=== PATIENT | female | born 1950 | race Caucasian/White ===

== ENCOUNTER 2018-01-02 16:36 | Inpatient (IN) | payer MEDICARE, OTHER ==
[~2018-01-02] VITALS: Ht 165.1 cm; Wt 57.3 kg
[~2018-01-02 16:36] MED LIST: AMLO2.5T2 PO; COU5T PO; DOCU100C41 PO; DULO-31 PO; GABA-530 PO; LEVO25TA2 PO; LOSA25TA96 PO; METF500T PO; METH-603 PO
[2018-01-02] MEDS ORDERED: ipratropium/albuterol 3ml nebule NEB ONE (16:50)
[2018-01-02 17:34] LABS: BASOPHILS % (AUTO) 0.4 % (0-1); EOSINOPHILS % (AUTO) 0.1 % (0-6); HEMATOCRIT 41.6 % (35.0-45.0); HEMOGLOBIN 13.6 g/dl (12.0-16.0); LYMPHOCYTES # (AUTO) 1.5 X10'3 (1.1-4.8); MEAN CORPUSCULAR HEMOGLOBIN 27.1 PG (27.0-31.0); MEAN CORPUSCULAR HGB CONC 32.8 % (33.0-36.5); MEAN CORPUSCULAR VOLUME 82.8 FL (78-98); MEAN PLATELET VOLUME 8.3 FL (7.4-10.4); MONOCYTES # (AUTO) 0.6 X10'3 (0-0.9); MONOCYTES % (AUTO) 6.1 % (2-12); NEUTROPHILS # (AUTO) 7.2 X10'3 (1.8-7.7); NEUTROPHILS % (AUTO) 77.4 % (42-75); PLATELET COUNT 269 X10'3 (140-440); RED BLOOD COUNT 5.03 X10'6 (4.20-5.60); RED CELL DISTRIBUTION WIDTH 18.4 % (11.5-14.5); WHITE BLOOD COUNT 9.3 X10'3 (4.5-11.0)
[2018-01-02 17:45] LABS: INR 1.5 INR; PARTIAL THROMBOPLASTIN TIME 38 SECONDS (22-32); PROTHROMBIN TIME 15.2 SECONDS (9.0-12.0)
[2018-01-02 18:00] LABS: ALANINE AMINOTRANSFERASE 38 U/L (12-78); ALBUMIN 2.6 G/DL (3.4-5.0); ALBUMIN/GLOBULIN RATIO 0.6 (1.1-1.5); ALKALINE PHOSPHATASE 112 IU/L (46-116); ANION GAP 12 (8-16); ASPARTATE AMINO TRANSFERASE 24 U/L (10-37); BILIRUBIN,TOTAL 1.8 MG/DL (0.1-1.0); BLOOD UREA NITROGEN 12 MG/DL (7-18); BUN/CREATININE RATIO 13.8 (6.6-38.0); CALCIUM 8.5 MG/DL (8.5-10.1); CHLORIDE 103 MMOL/L (99-107); CREATININE 0.87 MG/DL (0.40-0.90); GLUCOSE 227 MG/DL (70-104); MAGNESIUM 1.2 MG/DL (1.5-2.4); POTASSIUM 3.1 MMOL/L (3.5-5.1); SODIUM 142 MMOL/L (135-145); TOTAL CARBON DIOXIDE 27.3 MMOL/L (24-32); TOTAL PROTEIN 7.2 G/DL (6.4-8.2); eGFR 65 ML/MIN
[2018-01-02] MEDS ORDERED: insulin regular, human 10 units/0.1 ml syringe IV ONE (18:10)
[2018-01-02] MEDS ORDERED: aspirin 81mg tab.chew PO ONE (18:10)
[2018-01-02] MEDS ORDERED: vancomycin/NS 1 GM ADD-VANTAGE 250 ML IV ONE (18:20)
[2018-01-02] MEDS ORDERED: mag hydrox/Alum hydrox/simeth 30ml oral suspension PO PRN (19:30)
[2018-01-02] MEDS ORDERED: ondansetron/PF 4mg/2ml inj IV PRN (19:30)
[2018-01-02] MEDS ORDERED: acetaminophen 325mg tablet PO PRN (19:30)
[2018-01-02] MEDS ORDERED: magnesium hydroxide 30ml (MOM) UD suspension PO PRN (19:30)
[2018-01-02] MEDS ORDERED: dextrose 50%-water 50ml dispensing syringe IV PRN ×2 (19:35)
[2018-01-02] MEDS ORDERED: dextrose ORAL solution 15 GM/59 ML bottle PO PRN ×2 (19:35)
[2018-01-02] MEDS ORDERED: glucagon, human recombinant 1mg kit SUBCUT PRN (19:35)
[2018-01-02] MEDS ORDERED: MESSAGE TO PHARMACY PO ONE (19:35)
[2018-01-02] MEDS: duloxetine 30mg CAPSULE.DR PO SCH (20:45)
[2018-01-02] MEDS: methadone 10mg tablet PO SCH (20:48)
[2018-01-02] MEDS: docusate sod 100mg capsule PO SCH (21:00)
[2018-01-02] MEDS: gabapentin 100mg capsule PO SCH (21:10)
[2018-01-02] MEDS: warfarin 5mg tablet PO SCH (21:58)
[2018-01-03 05:47] LABS: BASOPHILS % (AUTO) 0.3 % (0-1); EOSINOPHILS # (AUTO) 0.2 X10'3 (0-0.9); EOSINOPHILS % (AUTO) 1.4 % (0-6); HEMATOCRIT 40.6 % (35.0-45.0); HEMOGLOBIN 13.4 g/dl (12.0-16.0); LYMPHOCYTES # (AUTO) 1.3 X10'3 (1.1-4.8); LYMPHOCYTES % (AUTO) 10.5 % (21-51); MEAN CORPUSCULAR HGB CONC 33.1 % (33.0-36.5); MEAN CORPUSCULAR VOLUME 81.6 FL (78-98); MEAN PLATELET VOLUME 8.3 FL (7.4-10.4); MONOCYTES # (AUTO) 0.6 X10'3 (0-0.9); MONOCYTES % (AUTO) 5.1 % (2-12); NEUTROPHILS # (AUTO) 10.3 X10'3 (1.8-7.7); NEUTROPHILS % (AUTO) 82.7 % (42-75); PLATELET COUNT 255 X10'3 (140-440); RED BLOOD COUNT 4.97 X10'6 (4.20-5.60); RED CELL DISTRIBUTION WIDTH 18.9 % (11.5-14.5); WHITE BLOOD COUNT 12.4 X10'3 (4.5-11.0)
[2018-01-03 06:06] LABS: ALANINE AMINOTRANSFERASE 29 U/L (12-78); ALBUMIN 2.6 G/DL (3.4-5.0); ALBUMIN/GLOBULIN RATIO 0.6 (1.1-1.5); ALKALINE PHOSPHATASE 138 IU/L (46-116); ANION GAP 15 (8-16); ASPARTATE AMINO TRANSFERASE 25 U/L (10-37); BILIRUBIN,TOTAL 1.7 MG/DL (0.1-1.0); BLOOD UREA NITROGEN 17 MG/DL (7-18); BUN/CREATININE RATIO 16.5 (6.6-38.0); CALCIUM 8.8 MG/DL (8.5-10.1); CHLORIDE 102 MMOL/L (99-107); CREATININE 1.03 MG/DL (0.40-0.90); GLUCOSE 282 MG/DL (70-104); POTASSIUM 3.3 MMOL/L (3.5-5.1); SODIUM 141 MMOL/L (135-145); TOTAL PROTEIN 7.2 G/DL (6.4-8.2); eGFR 54 ML/MIN
[2018-01-03 06:10] LABS: INR 1.7 INR; PROTHROMBIN TIME 17.3 SECONDS (9.0-12.0)
[2018-01-03] MEDS ORDERED: potassium Cl 20 mEq SR tablet PO PRN (07:00)
[2018-01-03] MEDS ORDERED: potassium Cl 40MEQ/NS 500ml 500 ML IV PRN ×2 (07:00)
[2018-01-03] MEDS: levoTHYROXINE 25mcg tablet PO SCH (07:26)
[2018-01-03] MEDS: potassium Cl 20 mEq SR tablet PO PRN ×2 (07:27→13:00)
[2018-01-03 07:45] VITALS: BP 116/77
[2018-01-03] MEDS: K and/or MAG REPLACEMENT MC SCH (08:00)
[2018-01-03] MEDS: gabapentin 100mg capsule PO SCH ×3 (08:00→21:13)
[2018-01-03] MEDS: methadone 10mg tablet PO SCH ×2 (09:50→21:13)
[2018-01-03] MEDS: duloxetine 30mg CAPSULE.DR PO SCH ×2 (09:50→21:13)
[2018-01-03] MEDS: amLODIPine 2.5mg tablet PO SCH (09:51)
[2018-01-03] MEDS: losartan 25mg tablet PO SCH (09:51)
[2018-01-03] MEDS: insulin Lispro (HumaLOG) vial - multi-dose SQ SCH ×2 (10:24→13:09)
[2018-01-03 11:00] VITALS: BP 123/91
[2018-01-03 15:00] VITALS: BP 100/77
[2018-01-03] MEDS ORDERED: furosemide 40mg/4ml inj IV ONE (17:40)
[2018-01-03] MEDS: furosemide 20 MG/2 ML vial IV SCH ×2 (17:42→21:12)
[2018-01-03 18:36] LABS: ABG BASE EXCESS -2.3 mmol/L (-2.0-3.0); ABG HCO3 20.2 mmol/L (22.0-26.0); ABG OXYGEN SATURATION 82.4 % (95-98); ABG PCO2 (T) 28.4 mmHg (32.0-45.0); ABG PO2 (T) 46.1 mmHg (83-108); ALLEN'S TEST Positive; FCOHb 0.8 % (0.5-1.5); FLOW 3 L/min; FMetHb 0.2 % (0.3-1.12); FO2Hb 81.6 % (94-100); PATIENT TEMPERATURE 36.8; TOTAL HEMOGLOBIN 13.4 G/dl (12.0-16.0)
[2018-01-03 19:00] VITALS: BP 104/78
[2018-01-03] MEDS: metoprolol tartrate 12.5mg (1/2 tablet) PO SCH (21:13)
[2018-01-03] MEDS: docusate sod 100mg capsule PO SCH (21:13)
[2018-01-03] MEDS: warfarin 5mg tablet PO SCH (21:13)
[2018-01-03 23:00] VITALS: BP 89/60
[2018-01-04] VITALS (7 sets, daily range): BP systolic 90–138; BP diastolic 55–69
[2018-01-04 00:40] LABS: CLARITY,URINE Cloudy (Clear); COLOR,URINE Dark Yellow (Yellow); GLUCOSE, URINE Negative (Neg); KETONES,URINE Negative (Neg); LEUKOCYTE ESTERASE ,URINE Negative (Neg); NITRITES, URINE Negative (Neg); OCCULT BLOOD,URINE Negative (Neg); PROTEIN,URINE 30 mg/dl (Neg)
[2018-01-04 00:41] LABS: UA COLLECTION TYPE FOLEY CATH
[2018-01-04 00:49] LABS: HYALINE CASTS >30 /LPF (NEGATIVE)
[2018-01-04 00:51] LABS: MUCUS STRANDS MANY /LPF (Neg)
[2018-01-04 00:53] LABS: CELLULAR CAST 0-4 /LPF (NEGATIVE); RBC,URINE 0-2 /HPF (0-2)
[2018-01-04 00:54] LABS: SQUAMOUS EPITHELIAL CELL,UR MANY /LPF (FEW)
[2018-01-04 00:56] LABS: AMORPHOUS URATES 1+; BACTERIA,URINE NONE SEEN /HPF (Neg)
[2018-01-04 06:27] LABS: BASOPHILS % (AUTO) 0.2 % (0-1); EOSINOPHILS # (AUTO) 0.2 X10'3 (0-0.9); EOSINOPHILS % (AUTO) 1.3 % (0-6); HEMATOCRIT 37.4 % (35.0-45.0); HEMOGLOBIN 12.3 g/dl (12.0-16.0); LYMPHOCYTES # (AUTO) 1.3 X10'3 (1.1-4.8); LYMPHOCYTES % (AUTO) 7.6 % (21-51); MEAN CORPUSCULAR HEMOGLOBIN 27.4 PG (27.0-31.0); MEAN CORPUSCULAR VOLUME 82.9 FL (78-98); MEAN PLATELET VOLUME 8.4 FL (7.4-10.4); MONOCYTES # (AUTO) 0.8 X10'3 (0-0.9); MONOCYTES % (AUTO) 4.8 % (2-12); NEUTROPHILS # (AUTO) 14.3 X10'3 (1.8-7.7); NEUTROPHILS % (AUTO) 86.1 % (42-75); PLATELET COUNT 197 X10'3 (140-440); RED BLOOD COUNT 4.51 X10'6 (4.20-5.60); RED CELL DISTRIBUTION WIDTH 19.5 % (11.5-14.5); WHITE BLOOD COUNT 16.6 X10'3 (4.5-11.0)
[2018-01-04 06:37] LABS: PROTHROMBIN TIME 20.2 SECONDS (9.0-12.0)
[2018-01-04 06:50] LABS: ALANINE AMINOTRANSFERASE 39 U/L (12-78); ALBUMIN 2.2 G/DL (3.4-5.0); ALBUMIN/GLOBULIN RATIO 0.6 (1.1-1.5); ALKALINE PHOSPHATASE 146 IU/L (46-116); ANION GAP 12 (8-16); ASPARTATE AMINO TRANSFERASE 49 U/L (10-37); BILIRUBIN,TOTAL 2.5 MG/DL (0.1-1.0); BLOOD UREA NITROGEN 31 MG/DL (7-18); BUN/CREATININE RATIO 21.7 (6.6-38.0); CALCIUM 8.1 MG/DL (8.5-10.1); CHLORIDE 105 MMOL/L (99-107); CREATININE 1.43 MG/DL (0.40-0.90); GLUCOSE 109 MG/DL (70-104); SODIUM 144 MMOL/L (135-145); TOTAL CARBON DIOXIDE 26.6 MMOL/L (24-32); TOTAL PROTEIN 6.1 G/DL (6.4-8.2); eGFR 37 ML/MIN
[2018-01-04] MEDS: amLODIPine 2.5mg tablet PO SCH (08:00)
[2018-01-04] MEDS: furosemide 20 MG/2 ML vial IV SCH ×2 (08:00→19:56)
[2018-01-04] MEDS: losartan 25mg tablet PO SCH (08:00)
[2018-01-04] MEDS: K and/or MAG REPLACEMENT MC SCH (08:00)
[2018-01-04] MEDS: duloxetine 30mg CAPSULE.DR PO SCH ×2 (08:00→19:56)
[2018-01-04] MEDS: metoprolol tartrate 12.5mg (1/2 tablet) PO SCH ×2 (08:00→19:56)
[2018-01-04] MEDS: gabapentin 100mg capsule PO SCH ×3 (08:00→21:13)
[2018-01-04] MEDS: levoTHYROXINE 25mcg tablet PO SCH (08:48)
[2018-01-04] MEDS: aspirin 81mg tablet.DR PO SCH (08:48)
[2018-01-04] MEDS: methadone 10mg tablet PO SCH ×2 (08:48→19:56)
[2018-01-04] MEDS: atorvastatin 20mg tablet PO SCH (08:48)
[2018-01-04] MEDS: normal saline 1000ml 1,000 ML IV SCH ×2 (09:53→21:23)
[2018-01-04] MEDS: cefepime 1GM/NS ADD-VANTAGE 100 ML IV SCH ×2 (10:00→19:56)
[2018-01-04] MEDS: insulin Lispro (HumaLOG) vial - multi-dose SQ SCH (13:05)
[2018-01-04] MEDS: lactobacillus rhamnosus 10,000 MMU CELLS/CAPSULE PO SCH (17:33)
[2018-01-04] MEDS: NUT.TX.GLUC.INTOLER,LAC-FR,REG (BOOST GLUCOSE CONTROL) 237 ML PO SCH (18:00)
[2018-01-04] MEDS: docusate sod 100mg capsule PO SCH (21:13)
[2018-01-04] MEDS: warfarin 5mg tablet PO SCH (21:15)
[2018-01-04] MEDS ORDERED: nicotine 7mg patch - 24hr TD SCH (21:50)
[2018-01-04] MEDS: nicotine 21mg patch - 24 hr TD SCH (23:22)
[2018-01-05] VITALS (9 sets, daily range): BP systolic 80–115; BP diastolic 58–97
[2018-01-05 05:16] LABS: BASOPHILS % (AUTO) 0.3 % (0-1); EOSINOPHILS # (AUTO) 0.1 X10'3 (0-0.9); EOSINOPHILS % (AUTO) 0.4 % (0-6); HEMATOCRIT 37.3 % (35.0-45.0); HEMOGLOBIN 12.1 g/dl (12.0-16.0); LYMPHOCYTES # (AUTO) 1.3 X10'3 (1.1-4.8); LYMPHOCYTES % (AUTO) 10.6 % (21-51); MEAN CORPUSCULAR HEMOGLOBIN 27.1 PG (27.0-31.0); MEAN CORPUSCULAR HGB CONC 32.4 % (33.0-36.5); MEAN CORPUSCULAR VOLUME 83.9 FL (78-98); MEAN PLATELET VOLUME 8.5 FL (7.4-10.4); MONOCYTES # (AUTO) 0.6 X10'3 (0-0.9); MONOCYTES % (AUTO) 4.7 % (2-12); NEUTROPHILS # (AUTO) 10.4 X10'3 (1.8-7.7); PLATELET COUNT 204 X10'3 (140-440); RED BLOOD COUNT 4.45 X10'6 (4.20-5.60); RED CELL DISTRIBUTION WIDTH 19.1 % (11.5-14.5); WHITE BLOOD COUNT 12.4 X10'3 (4.5-11.0)
[2018-01-05 05:32] LABS: INR 2.7 INR; PROTHROMBIN TIME 27.3 SECONDS (9.0-12.0)
[2018-01-05 05:56] LABS: ALANINE AMINOTRANSFERASE 44 U/L (12-78); ALBUMIN 2.1 G/DL (3.4-5.0); ALBUMIN/GLOBULIN RATIO 0.5 (1.1-1.5); ALKALINE PHOSPHATASE 176 IU/L (46-116); ANION GAP 12 (8-16); ASPARTATE AMINO TRANSFERASE 49 U/L (10-37); BILIRUBIN,TOTAL 1.7 MG/DL (0.1-1.0); BLOOD UREA NITROGEN 39 MG/DL (7-18); BUN/CREATININE RATIO 30.2 (6.6-38.0); CALCIUM 8.2 MG/DL (8.5-10.1); CHLORIDE 106 MMOL/L (99-107); CREATININE 1.29 MG/DL (0.40-0.90); GLUCOSE 174 MG/DL (70-104); POTASSIUM 3.4 MMOL/L (3.5-5.1); SODIUM 145 MMOL/L (135-145); TOTAL CARBON DIOXIDE 26.8 MMOL/L (24-32); eGFR 41 ML/MIN
[2018-01-05] MEDS: duloxetine 30mg CAPSULE.DR PO SCH ×2 (07:38→20:00)
[2018-01-05] MEDS: losartan 25mg tablet PO SCH (07:38)
[2018-01-05] MEDS: gabapentin 100mg capsule PO SCH ×3 (07:38→21:00)
[2018-01-05] MEDS: metoprolol tartrate 12.5mg (1/2 tablet) PO SCH ×2 (07:38→20:00)
[2018-01-05] MEDS: cefepime 1GM/NS ADD-VANTAGE 100 ML IV SCH ×2 (07:38→21:20)
[2018-01-05] MEDS: atorvastatin 20mg tablet PO SCH (07:38)
[2018-01-05] MEDS: aspirin 81mg tablet.DR PO SCH (07:39)
[2018-01-05] MEDS: lactobacillus rhamnosus 10,000 MMU CELLS/CAPSULE PO SCH ×2 (07:39→17:00)
[2018-01-05] MEDS: methadone 10mg tablet PO SCH ×2 (07:39→20:00)
[2018-01-05] MEDS: furosemide 20 MG/2 ML vial IV SCH ×2 (07:39→21:12)
[2018-01-05] MEDS: levoTHYROXINE 25mcg tablet PO SCH (07:40)
[2018-01-05] MEDS: normal saline 1000ml 1,000 ML IV SCH ×3 (07:50→18:44)
[2018-01-05] MEDS: NUT.TX.GLUC.INTOLER,LAC-FR,REG (BOOST GLUCOSE CONTROL) 237 ML PO SCH ×3 (08:00→18:00)
[2018-01-05] MEDS: K and/or MAG REPLACEMENT MC SCH (08:00)
[2018-01-05] MEDS ORDERED: potassium Cl oral solution 20 MEQ/15 ML PO PRN (09:25)
[2018-01-05] MEDS: insulin Lispro (HumaLOG) vial - multi-dose SQ SCH ×2 (09:40→13:26)
[2018-01-05] MEDS ORDERED: LIDOcaine 1% 30ml vial 5 ML in potassium Cl 40MEQ/NS 500ml 500 ML IV ONE (15:00)
[2018-01-05 16:05] LABS: ABG BASE EXCESS -2.8 mmol/L (-2.0-3.0); ABG HCO3 23.1 mmol/L (22.0-26.0); ABG OXYGEN SATURATION 93.1 % (95-98); ABG PCO2 (T) 44.5 mmHg (32.0-45.0); ABG PH (T) 7.334 (7.350-7.450); ABG PO2 (T) 76.8 mmHg (83-108); FCOHb 0.5 % (0.5-1.5); FLOW 7 L/min; FMetHb 0.2 % (0.3-1.12); FO2Hb 92.4 % (94-100); TOTAL HEMOGLOBIN 12.7 G/dl (12.0-16.0)
[2018-01-05] MEDS ORDERED: normal saline 500ml IV soln 1,000 ML IV ONE (16:55)
[2018-01-05] MEDS ORDERED: naloxone 0.4 mg/ml inj ONE (17:14)
[2018-01-05] MEDS ORDERED: NORepinephrine 8mg/ 250ml NS 250 ML IV ONE (18:32)
[2018-01-05] MEDS: docusate sod 100mg capsule PO SCH (21:00)
[2018-01-05] MEDS: nicotine 21mg patch - 24 hr TD SCH (21:32)
[2018-01-05] MEDS: warfarin 5mg tablet PO SCH (21:33)
[2018-01-06] VITALS (24 sets, daily range): BP systolic 81–125; BP diastolic 47–76
[2018-01-06 04:47] LABS: BASOPHILS % (AUTO) 0.3 % (0-1); EOSINOPHILS % (AUTO) 0.3 % (0-6); HEMATOCRIT 38.2 % (35.0-45.0); HEMOGLOBIN 12.3 g/dl (12.0-16.0); LYMPHOCYTES # (AUTO) 1.3 X10'3 (1.1-4.8); LYMPHOCYTES % (AUTO) 10.1 % (21-51); MEAN CORPUSCULAR HEMOGLOBIN 26.8 PG (27.0-31.0); MEAN CORPUSCULAR HGB CONC 32.1 % (33.0-36.5); MEAN CORPUSCULAR VOLUME 83.6 FL (78-98); MEAN PLATELET VOLUME 8.8 FL (7.4-10.4); MONOCYTES # (AUTO) 0.6 X10'3 (0-0.9); MONOCYTES % (AUTO) 4.8 % (2-12); NEUTROPHILS # (AUTO) 10.8 X10'3 (1.8-7.7); NEUTROPHILS % (AUTO) 84.5 % (42-75); PLATELET COUNT 220 X10'3 (140-440); RED BLOOD COUNT 4.57 X10'6 (4.20-5.60); RED CELL DISTRIBUTION WIDTH 19.6 % (11.5-14.5); WHITE BLOOD COUNT 12.8 X10'3 (4.5-11.0)
[2018-01-06 05:12] LABS: INR 6.4 INR
[2018-01-06 05:20] LABS: ALANINE AMINOTRANSFERASE 111 U/L (12-78); ALBUMIN/GLOBULIN RATIO 0.5 (1.1-1.5); ALKALINE PHOSPHATASE 322 IU/L (46-116); ANION GAP 15 (8-16); ASPARTATE AMINO TRANSFERASE 242 U/L (10-37); BILIRUBIN,TOTAL 2.3 MG/DL (0.1-1.0); BLOOD UREA NITROGEN 43 MG/DL (7-18); BUN/CREATININE RATIO 33.6 (6.6-38.0); CALCIUM 8.2 MG/DL (8.5-10.1); CHLORIDE 110 MMOL/L (99-107); CREATININE 1.28 MG/DL (0.40-0.90); GLUCOSE 98 MG/DL (70-104); POTASSIUM 4.3 MMOL/L (3.5-5.1); SODIUM 147 MMOL/L (135-145); TOTAL CARBON DIOXIDE 22.1 MMOL/L (24-32); eGFR 42 ML/MIN
[2018-01-06] MEDS: normal saline 1000ml 1,000 ML IV SCH ×2 (05:48→16:34)
[2018-01-06 06:58] LABS: ANISOCYTOSIS 2+; BURR CELLS 1+; ELLIPTOCYTES FEW; MICROCYTOSIS 1+; PLATELET ESTIMATE NORMAL; POLYCHROMASIA FEW; TARGET CELLS FEW
[2018-01-06] MEDS: K and/or MAG REPLACEMENT MC SCH (07:55)
[2018-01-06] MEDS: metoprolol tartrate 12.5mg (1/2 tablet) PO SCH ×2 (08:00→20:00)
[2018-01-06] MEDS: NUT.TX.GLUC.INTOLER,LAC-FR,REG (BOOST GLUCOSE CONTROL) 237 ML PO SCH ×3 (08:00→18:42)
[2018-01-06] MEDS: methadone 10mg tablet PO SCH ×2 (08:00→20:18)
[2018-01-06] MEDS: furosemide 20 MG/2 ML vial IV SCH ×2 (08:15→20:00)
[2018-01-06] MEDS: cefepime 1GM/NS ADD-VANTAGE 100 ML IV SCH ×2 (08:15→20:18)
[2018-01-06] MEDS: losartan 25mg tablet PO SCH (09:18)
[2018-01-06] MEDS: levoTHYROXINE 25mcg tablet PO SCH (09:18)
[2018-01-06] MEDS: duloxetine 30mg CAPSULE.DR PO SCH ×2 (09:19→20:18)
[2018-01-06] MEDS: lactobacillus rhamnosus 10,000 MMU CELLS/CAPSULE PO SCH ×2 (09:24→18:42)
[2018-01-06] MEDS: atorvastatin 20mg tablet PO SCH (09:24)
[2018-01-06] MEDS: aspirin 81mg tablet.DR PO SCH (09:24)
[2018-01-06] MEDS: gabapentin 100mg capsule PO SCH ×3 (09:26→21:00)
[2018-01-06] MEDS: docusate sod 100mg capsule PO SCH (20:18)
[2018-01-06] MEDS: nicotine 21mg patch - 24 hr TD SCH (21:01)
[2018-01-06 21:51] LABS: ABG BASE EXCESS -0.6 mmol/L (-2.0-3.0); ABG OXYGEN SATURATION 91.8 % (95-98); ABG PCO2 (T) 39.1 mmHg (32.0-45.0); ABG PH (T) 7.405 (7.350-7.450); ABG PO2 (T) 67.3 mmHg (83-108); ALLEN'S TEST Positive; FCOHb 0.1 % (0.5-1.5); FLOW 2 L/min; FMetHb 0.3 % (0.3-1.12); FO2Hb 91.4 % (94-100); PATIENT TEMPERATURE 36.7; RESPIRATORY RATE (OBSERVED) 16 b/min; TOTAL HEMOGLOBIN 12.3 G/dl (12.0-16.0)
[2018-01-07] VITALS (25 sets, daily range): BP systolic 93–138; BP diastolic 7–91
[2018-01-07] MEDS: normal saline 1000ml 1,000 ML IV SCH (02:18)
[2018-01-07 04:58] LABS: BASOPHILS % (AUTO) 0.3 % (0-1); EOSINOPHILS # (AUTO) 0.2 X10'3 (0-0.9); EOSINOPHILS % (AUTO) 3.1 % (0-6); HEMOGLOBIN 11.6 g/dl (12.0-16.0); LYMPHOCYTES % (AUTO) 14.4 % (21-51); MEAN CORPUSCULAR HGB CONC 32.2 % (33.0-36.5); MEAN CORPUSCULAR VOLUME 84.1 FL (78-98); MEAN PLATELET VOLUME 8.7 FL (7.4-10.4); MONOCYTES # (AUTO) 0.4 X10'3 (0-0.9); MONOCYTES % (AUTO) 5.9 % (2-12); NEUTROPHILS # (AUTO) 5.6 X10'3 (1.8-7.7); NEUTROPHILS % (AUTO) 76.3 % (42-75); PLATELET COUNT 197 X10'3 (140-440); RED BLOOD COUNT 4.28 X10'6 (4.20-5.60); RED CELL DISTRIBUTION WIDTH 19.8 % (11.5-14.5); WHITE BLOOD COUNT 7.3 X10'3 (4.5-11.0)
[2018-01-07 05:26] LABS: PROTHROMBIN TIME 68.9 SECONDS (9.0-12.0)
[2018-01-07 05:31] LABS: INR 7.2 INR
[2018-01-07 05:37] LABS: ALANINE AMINOTRANSFERASE 135 U/L (12-78); ALBUMIN 1.7 G/DL (3.4-5.0); ALBUMIN/GLOBULIN RATIO 0.4 (1.1-1.5); ALKALINE PHOSPHATASE 283 IU/L (46-116); ANION GAP 10 (8-16); ASPARTATE AMINO TRANSFERASE 169 U/L (10-37); BILIRUBIN,TOTAL 1.1 MG/DL (0.1-1.0); BLOOD UREA NITROGEN 26 MG/DL (7-18); BUN/CREATININE RATIO 28.3 (6.6-38.0); CALCIUM 7.5 MG/DL (8.5-10.1); CHLORIDE 108 MMOL/L (99-107); CREATININE 0.92 MG/DL (0.40-0.90); GLUCOSE 205 MG/DL (70-104); SODIUM 148 MMOL/L (135-145); TOTAL CARBON DIOXIDE 30.5 MMOL/L (24-32); TOTAL PROTEIN 5.5 G/DL (6.4-8.2); eGFR 61 ML/MIN
[2018-01-07 05:43] LABS: POTASSIUM 2.8 MMOL/L (3.5-5.1)
[2018-01-07] MEDS ORDERED: potassium Cl 40MEQ/250ML bag 250 ML IV PRN (05:45)
[2018-01-07] MEDS: losartan 25mg tablet PO SCH (07:56)
[2018-01-07] MEDS: lactobacillus rhamnosus 10,000 MMU CELLS/CAPSULE PO SCH ×2 (07:56→17:58)
[2018-01-07] MEDS: NUT.TX.GLUC.INTOLER,LAC-FR,REG (BOOST GLUCOSE CONTROL) 237 ML PO SCH ×6 (07:56→18:00)
[2018-01-07] MEDS: levoTHYROXINE 25mcg tablet PO SCH (07:56)
[2018-01-07] MEDS: atorvastatin 20mg tablet PO SCH (07:56)
[2018-01-07] MEDS: aspirin 81mg tablet.DR PO SCH (07:56)
[2018-01-07] MEDS: duloxetine 30mg CAPSULE.DR PO SCH ×2 (07:56→20:53)
[2018-01-07] MEDS: gabapentin 100mg capsule PO SCH ×3 (07:56→20:53)
[2018-01-07] MEDS: K and/or MAG REPLACEMENT MC SCH (07:57)
[2018-01-07] MEDS: potassium Cl 40MEQ/250ML bag 250 ML IV PRN ×2 (07:59→12:01)
[2018-01-07] MEDS: metoprolol tartrate 12.5mg (1/2 tablet) PO SCH ×2 (08:00→20:53)
[2018-01-07] MEDS: methadone 10mg tablet PO SCH ×2 (08:00→20:00)
[2018-01-07] MEDS: cefepime 1GM/NS ADD-VANTAGE 100 ML IV SCH ×2 (08:44→20:54)
[2018-01-07] MEDS: insulin Lispro (HumaLOG) vial - multi-dose SQ SCH ×3 (09:24→21:25)
[2018-01-07] MEDS ORDERED: fentaNYL/PF 50MCG/1 ML 2ML syringe IV PRN (09:50)
[2018-01-07] MEDS ORDERED: midazolam 2 mg/2 ml injection IV ONE (09:50)
[2018-01-07] MEDS ORDERED: FENTANYL-0.9 % NACL/PF 100 ML IV PRN (09:50)
[2018-01-07] MEDS ORDERED: midazolam 100mg in NS 100ml 100 ML IV PRN (09:50)
[2018-01-07] MEDS ORDERED: ipratropium/albuterol 3ml nebule NEB PRN (09:50)
[2018-01-07] MEDS ORDERED: NORepinephrine 8mg/ 250ml NS 250 ML IV PRN (09:50)
[2018-01-07] MEDS ORDERED: metroNIDAZOLE-Flagyl 500mg/NS 100 ML IV SCH (09:55)
[2018-01-07] MEDS ORDERED: levoFLOXACIN-Levaquin 500mg/D5 100 ML IV SCH (09:55)
[2018-01-07 10:40] LABS: ABG BASE EXCESS 2.4 mmol/L (-2.0-3.0); ABG HCO3 25.8 mmol/L (22.0-26.0); ABG OXYGEN SATURATION 96.8 % (95-98); ABG PH (T) 7.473 (7.350-7.450); ABG PO2 (T) 83.4 mmHg (83-108); ALLEN'S TEST Positive; FCOHb 0.5 % (0.5-1.5); FLOW 4 L/min; FMetHb 0.1 % (0.3-1.12); FO2Hb 96.2 % (94-100); TOTAL HEMOGLOBIN 12.9 G/dl (12.0-16.0)
[2018-01-07] MEDS ORDERED: ipratropium/albuterol 3ml nebule NEB SCH (11:00)
[2018-01-07] MEDS: docusate sod 100mg capsule PO SCH (20:53)
[2018-01-07] MEDS: nicotine 21mg patch - 24 hr TD SCH (20:54)
[2018-01-07] MEDS ORDERED: Insulin Detemir pen SQ SCH (21:00)
[2018-01-07] MEDS ORDERED: insulin glargine (Lantus) pen - multi-dose SQ ONE (21:00)
[2018-01-08] VITALS (19 sets, daily range): BP systolic 76–122; BP diastolic 58–99
[2018-01-08 06:51] LABS: BASOPHILS % (AUTO) 0.2 % (0-1); EOSINOPHILS # (AUTO) 0.1 X10'3 (0-0.9); EOSINOPHILS % (AUTO) 1.7 % (0-6); HEMATOCRIT 37.3 % (35.0-45.0); HEMOGLOBIN 12.2 g/dl (12.0-16.0); LYMPHOCYTES # (AUTO) 1.2 X10'3 (1.1-4.8); LYMPHOCYTES % (AUTO) 15.9 % (21-51); MEAN CORPUSCULAR HEMOGLOBIN 27.3 PG (27.0-31.0); MEAN CORPUSCULAR HGB CONC 32.7 % (33.0-36.5); MEAN CORPUSCULAR VOLUME 83.5 FL (78-98); MEAN PLATELET VOLUME 8.4 FL (7.4-10.4); MONOCYTES # (AUTO) 0.6 X10'3 (0-0.9); MONOCYTES % (AUTO) 8.2 % (2-12); NEUTROPHILS # (AUTO) 5.8 X10'3 (1.8-7.7); PLATELET COUNT 235 X10'3 (140-440); RED BLOOD COUNT 4.47 X10'6 (4.20-5.60); RED CELL DISTRIBUTION WIDTH 19.8 % (11.5-14.5); WHITE BLOOD COUNT 7.8 X10'3 (4.5-11.0)
[2018-01-08 07:05] LABS: ALANINE AMINOTRANSFERASE 116 U/L (12-78); ALBUMIN 1.9 G/DL (3.4-5.0); ALBUMIN/GLOBULIN RATIO 0.4 (1.1-1.5); ALKALINE PHOSPHATASE 280 IU/L (46-116); ANION GAP 9 (8-16); ASPARTATE AMINO TRANSFERASE 91 U/L (10-37); BLOOD UREA NITROGEN 20 MG/DL (7-18); BUN/CREATININE RATIO 20.2 (6.6-38.0); CHLORIDE 111 MMOL/L (99-107); CREATININE 0.99 MG/DL (0.40-0.90); GLUCOSE 182 MG/DL (70-104); MAGNESIUM 1.2 MG/DL (1.5-2.4); PHOSPHORUS 1.8 MG/DL (2.3-4.5); SODIUM 148 MMOL/L (135-145); TOTAL CARBON DIOXIDE 28.5 MMOL/L (24-32); TOTAL PROTEIN 6.4 G/DL (6.4-8.2); eGFR 56 ML/MIN
[2018-01-08] MEDS: NUT.TX.GLUC.INTOLER,LAC-FR,REG (BOOST GLUCOSE CONTROL) 237 ML PO SCH ×6 (08:00→18:00)
[2018-01-08] MEDS: methadone 10mg tablet PO SCH ×2 (08:00→20:17)
[2018-01-08] MEDS: lactobacillus rhamnosus 10,000 MMU CELLS/CAPSULE PO SCH ×2 (08:12→17:21)
[2018-01-08] MEDS: gabapentin 100mg capsule PO SCH ×3 (08:12→20:17)
[2018-01-08] MEDS: losartan 25mg tablet PO SCH (08:12)
[2018-01-08] MEDS: atorvastatin 20mg tablet PO SCH (08:13)
[2018-01-08] MEDS: duloxetine 30mg CAPSULE.DR PO SCH ×2 (08:13→20:17)
[2018-01-08] MEDS: metoprolol tartrate 12.5mg (1/2 tablet) PO SCH ×2 (08:13→20:17)
[2018-01-08] MEDS: aspirin 81mg tablet.DR PO SCH (08:13)
[2018-01-08] MEDS: K and/or MAG REPLACEMENT MC SCH (08:13)
[2018-01-08] MEDS: levoTHYROXINE 25mcg tablet PO SCH (08:18)
[2018-01-08] MEDS: cefepime 1GM/NS ADD-VANTAGE 100 ML IV SCH ×2 (09:51→20:18)
[2018-01-08] MEDS: insulin Lispro (HumaLOG) vial - multi-dose SQ SCH (09:59)
[2018-01-08 11:38] LABS: PROTHROMBIN TIME 60.5 SECONDS (9.0-12.0)
[2018-01-08 11:44] LABS: INR 6.2 INR
[2018-01-08] MEDS ORDERED: methylnaltrexone br 12mg/0.6ml inj***SubQ only SQ SCH (11:56)
[2018-01-08] MEDS ORDERED: bisacodyl 10mg suppository rectal RC PRN (12:00)
[2018-01-08] MEDS ORDERED: mineral oil/petrolatum ophthal oint EACHEYE SCH (14:00)
[2018-01-08] MEDS: docusate sod 100mg capsule PO SCH (20:17)
[2018-01-08] MEDS: nicotine 21mg patch - 24 hr TD SCH (20:17)
[2018-01-09 03:00] VITALS: BP 135/88
[2018-01-09 05:24] LABS: BASOPHILS % (AUTO) 0.4 % (0-1); EOSINOPHILS # (AUTO) 0.1 X10'3 (0-0.9); EOSINOPHILS % (AUTO) 0.9 % (0-6); HEMATOCRIT 39.8 % (35.0-45.0); HEMOGLOBIN 12.8 g/dl (12.0-16.0); LYMPHOCYTES # (AUTO) 1.8 X10'3 (1.1-4.8); LYMPHOCYTES % (AUTO) 20.7 % (21-51); MEAN CORPUSCULAR HEMOGLOBIN 27.4 PG (27.0-31.0); MEAN CORPUSCULAR HGB CONC 32.3 % (33.0-36.5); MEAN CORPUSCULAR VOLUME 84.8 FL (78-98); MEAN PLATELET VOLUME 8.9 FL (7.4-10.4); MONOCYTES # (AUTO) 0.8 X10'3 (0-0.9); MONOCYTES % (AUTO) 9.4 % (2-12); NEUTROPHILS # (AUTO) 5.9 X10'3 (1.8-7.7); NEUTROPHILS % (AUTO) 68.6 % (42-75); PLATELET COUNT 253 X10'3 (140-440); RED BLOOD COUNT 4.69 X10'6 (4.20-5.60); RED CELL DISTRIBUTION WIDTH 19.9 % (11.5-14.5); WHITE BLOOD COUNT 8.5 X10'3 (4.5-11.0)
[2018-01-09 05:38] LABS: ALANINE AMINOTRANSFERASE 103 U/L (12-78); ALBUMIN 2.1 G/DL (3.4-5.0); ALBUMIN/GLOBULIN RATIO 0.4 (1.1-1.5); ALKALINE PHOSPHATASE 379 IU/L (46-116); ANION GAP 21 (8-16); ASPARTATE AMINO TRANSFERASE 73 U/L (10-37); BILIRUBIN,TOTAL 1.6 MG/DL (0.1-1.0); BLOOD UREA NITROGEN 26 MG/DL (7-18); BUN/CREATININE RATIO 22.8 (6.6-38.0); CALCIUM 8.7 MG/DL (8.5-10.1); CHLORIDE 110 MMOL/L (99-107); CREATININE 1.14 MG/DL (0.40-0.90); GLUCOSE 99 MG/DL (70-104); MAGNESIUM 1.5 MG/DL (1.5-2.4); PHOSPHORUS 2.6 MG/DL (2.3-4.5); POTASSIUM 4.9 MMOL/L (3.5-5.1); SODIUM 151 MMOL/L (135-145); TOTAL CARBON DIOXIDE 20.5 MMOL/L (24-32); TOTAL PROTEIN 6.8 G/DL (6.4-8.2); eGFR 48 ML/MIN
[2018-01-09 06:00] VITALS: BP 136/86
[2018-01-09] MEDS: normal saline 1000ml 1,000 ML IV SCH ×2 (06:30→10:15)
[2018-01-09] MEDS: NUT.TX.GLUC.INTOLER,LAC-FR,REG (BOOST GLUCOSE CONTROL) 237 ML PO SCH ×6 (08:00→18:00)
[2018-01-09] MEDS: K and/or MAG REPLACEMENT MC SCH (08:00)
[2018-01-09] MEDS: cefepime 1GM/NS ADD-VANTAGE 100 ML IV SCH ×2 (10:02→22:12)
[2018-01-09] MEDS: losartan 25mg tablet PO SCH (10:03)
[2018-01-09] MEDS: methadone 10mg tablet PO SCH (10:03)
[2018-01-09] MEDS: lactobacillus rhamnosus 10,000 MMU CELLS/CAPSULE PO SCH ×3 (10:03→16:58)
[2018-01-09] MEDS: atorvastatin 20mg tablet PO SCH (10:03)
[2018-01-09] MEDS: duloxetine 30mg CAPSULE.DR PO SCH (10:03)
[2018-01-09] MEDS: metoprolol tartrate 12.5mg (1/2 tablet) PO SCH ×2 (10:03→22:12)
[2018-01-09] MEDS: aspirin 81mg tablet.DR PO SCH (10:04)
[2018-01-09] MEDS: docusate sod 100mg capsule PO SCH ×2 (10:04→20:00)
[2018-01-09] MEDS: levoTHYROXINE 25mcg tablet PO SCH (10:04)
[2018-01-09] MEDS: gabapentin 100mg capsule PO SCH (10:04)
[2018-01-09 11:00] VITALS: BP 130/83
[2018-01-09 15:15] LABS: PROTHROMBIN TIME 116.7 SECONDS (9.0-12.0)
[2018-01-09 15:20] LABS: INR > 9.0 INR
[2018-01-09] MEDS ORDERED: phytonadione inj. 3 MG in normal saline 100ml IV soln 99.7 ML IV STA (15:31)
[2018-01-09 17:26] LABS: ABG BASE EXCESS -7.7 mmol/L (-2.0-3.0); ABG HCO3 14.3 mmol/L (22.0-26.0); ABG OXYGEN SATURATION 93.3 % (95-98); ABG PCO2 (T) 21.5 mmHg (32.0-45.0); ABG PO2 (T) 67.4 mmHg (83-108); ALLEN'S TEST Positive; FCOHb 0.5 % (0.5-1.5); FMetHb 0.2 % (0.3-1.12); FO2Hb 92.6 % (94-100)
[2018-01-09] MEDS ORDERED: sodium chloride 0.45% 1,000 ML IV SCH (18:25)
[2018-01-09 22:00] VITALS: BP 122/84
[2018-01-09] MEDS: nicotine 21mg patch - 24 hr TD SCH (22:12)
[2018-01-10 02:00] VITALS: BP 122/74
[2018-01-10 05:30] VITALS: BP 127/84
[2018-01-10] MEDS: levoTHYROXINE 25mcg tablet PO SCH (07:00)
[2018-01-10] MEDS: lactobacillus rhamnosus 10,000 MMU CELLS/CAPSULE PO SCH ×2 (07:30→17:00)
[2018-01-10] MEDS: K and/or MAG REPLACEMENT MC SCH (08:00)
[2018-01-10] MEDS: atorvastatin 20mg tablet PO SCH (08:00)
[2018-01-10] MEDS: docusate sod 100mg capsule PO SCH ×2 (08:00→19:50)
[2018-01-10] MEDS: losartan 25mg tablet PO SCH (08:00)
[2018-01-10] MEDS: NUT.TX.GLUC.INTOLER,LAC-FR,REG (BOOST GLUCOSE CONTROL) 237 ML PO SCH ×5 (08:00→18:00)
[2018-01-10] MEDS: aspirin 81mg tablet.DR PO SCH (08:00)
[2018-01-10] MEDS: metoprolol tartrate 12.5mg (1/2 tablet) PO SCH ×2 (08:00→19:50)
[2018-01-10 09:23] LABS: BASOPHILS # (AUTO) 0.1 X10'3 (0-0.2); BASOPHILS % (AUTO) 0.4 % (0-1); EOSINOPHILS # (AUTO) 0.2 X10'3 (0-0.9); EOSINOPHILS % (AUTO) 1.6 % (0-6); HEMATOCRIT 43.7 % (35.0-45.0); HEMOGLOBIN 14.1 g/dl (12.0-16.0); LYMPHOCYTES # (AUTO) 1.8 X10'3 (1.1-4.8); LYMPHOCYTES % (AUTO) 13.3 % (21-51); MEAN CORPUSCULAR HEMOGLOBIN 26.9 PG (27.0-31.0); MEAN CORPUSCULAR HGB CONC 32.2 % (33.0-36.5); MEAN CORPUSCULAR VOLUME 83.5 FL (78-98); MEAN PLATELET VOLUME 8.8 FL (7.4-10.4); MONOCYTES # (AUTO) 0.7 X10'3 (0-0.9); NEUTROPHILS # (AUTO) 10.9 X10'3 (1.8-7.7); NEUTROPHILS % (AUTO) 79.7 % (42-75); PLATELET COUNT 280 X10'3 (140-440); RED BLOOD COUNT 5.23 X10'6 (4.20-5.60); RED CELL DISTRIBUTION WIDTH 19.9 % (11.5-14.5); WHITE BLOOD COUNT 13.6 X10'3 (4.5-11.0)
[2018-01-10 09:50] LABS: PROTHROMBIN TIME 43.1 SECONDS (9.0-12.0)
[2018-01-10 09:52] LABS: INR 4.4 INR
[2018-01-10] MEDS: cefepime 1GM/NS ADD-VANTAGE 100 ML IV SCH (10:00)
[2018-01-10 10:01] LABS: ALANINE AMINOTRANSFERASE 184 U/L (12-78); ALBUMIN 1.8 G/DL (3.4-5.0); ALBUMIN/GLOBULIN RATIO 0.4 (1.1-1.5); ALKALINE PHOSPHATASE 324 IU/L (46-116); ANION GAP 12 (8-16); ASPARTATE AMINO TRANSFERASE 328 U/L (10-37); BILIRUBIN,TOTAL 2.6 MG/DL (0.1-1.0); BLOOD UREA NITROGEN 31 MG/DL (7-18); BUN/CREATININE RATIO 29.8 (6.6-38.0); CHLORIDE 114 MMOL/L (99-107); CREATININE 1.04 MG/DL (0.40-0.90); GLUCOSE 171 MG/DL (70-104); MAGNESIUM 1.5 MG/DL (1.5-2.4); PHOSPHORUS 1.9 MG/DL (2.3-4.5); POTASSIUM 4.6 MMOL/L (3.5-5.1); SODIUM 152 MMOL/L (135-145); TOTAL CARBON DIOXIDE 26.1 MMOL/L (24-32); TOTAL PROTEIN 6.1 G/DL (6.4-8.2); eGFR 53 ML/MIN
[2018-01-10 11:00] VITALS: BP 138/82
[2018-01-10 15:00] VITALS: BP 137/99
[2018-01-10] MEDS ORDERED: dextrose 5%-water 1,000 ML IV SCH (15:55)
[2018-01-10 19:00] VITALS: BP 128/96
[2018-01-10] MEDS: clindamycin phosphate inj 300 MG in dextrose 5%-water 50ml 48 ML IV SCH (19:48)
[2018-01-10] MEDS: nicotine 21mg patch - 24 hr TD SCH (21:00)
[2018-01-10] MEDS ORDERED: MESSAGE TO PHARMACY PO ONE (22:20)
[2018-01-10] MEDS ORDERED: dextrose 50%-water 50ml dispensing syringe IV PRN ×2 (22:20)
[2018-01-10] MEDS ORDERED: dextrose ORAL solution 15 GM/59 ML bottle PO PRN ×2 (22:20)
[2018-01-10] MEDS ORDERED: glucagon, human recombinant 1mg kit SUBCUT PRN (22:20)
[2018-01-10] MEDS: insulin glargine (Lantus) pen - multi-dose SQ SCH (22:45)
[2018-01-10 23:00] VITALS: BP 149/90
[2018-01-11] MEDS: clindamycin phosphate inj 300 MG in dextrose 5%-water 50ml 48 ML IV SCH ×4 (00:40→23:02)
[2018-01-11 02:47] VITALS: BP 127/87
[2018-01-11 06:00] VITALS: BP 123/85
[2018-01-11 06:32] LABS: BASOPHILS % (AUTO) 0.2 % (0-1); EOSINOPHILS # (AUTO) 0.2 X10'3 (0-0.9); EOSINOPHILS % (AUTO) 1.7 % (0-6); LYMPHOCYTES # (AUTO) 1.7 X10'3 (1.1-4.8); LYMPHOCYTES % (AUTO) 12.9 % (21-51); MEAN CORPUSCULAR HEMOGLOBIN 27.1 PG (27.0-31.0); MEAN CORPUSCULAR HGB CONC 32.5 % (33.0-36.5); MEAN CORPUSCULAR VOLUME 83.6 FL (78-98); MEAN PLATELET VOLUME 9.1 FL (7.4-10.4); MONOCYTES # (AUTO) 0.7 X10'3 (0-0.9); MONOCYTES % (AUTO) 5.2 % (2-12); NEUTROPHILS # (AUTO) 10.5 X10'3 (1.8-7.7); PLATELET COUNT 301 X10'3 (140-440); RED BLOOD COUNT 5.15 X10'6 (4.20-5.60); RED CELL DISTRIBUTION WIDTH 19.9 % (11.5-14.5); WHITE BLOOD COUNT 13.1 X10'3 (4.5-11.0)
[2018-01-11 06:36] LABS: PROTHROMBIN TIME 27.4 SECONDS (9.0-12.0)
[2018-01-11 06:42] LABS: ALANINE AMINOTRANSFERASE 205 U/L (12-78); ALBUMIN 1.7 G/DL (3.4-5.0); ALBUMIN/GLOBULIN RATIO 0.4 (1.1-1.5); ALKALINE PHOSPHATASE 309 IU/L (46-116); ANION GAP 13 (8-16); ASPARTATE AMINO TRANSFERASE 325 U/L (10-37); BILIRUBIN,TOTAL 2.8 MG/DL (0.1-1.0); BLOOD UREA NITROGEN 31 MG/DL (7-18); BUN/CREATININE RATIO 27.9 (6.6-38.0); CALCIUM 8.2 MG/DL (8.5-10.1); CHLORIDE 113 MMOL/L (99-107); CREATININE 1.11 MG/DL (0.40-0.90); GLUCOSE 244 MG/DL (70-104); MAGNESIUM 1.4 MG/DL (1.5-2.4); PHOSPHORUS 1.5 MG/DL (2.3-4.5); POTASSIUM 3.8 MMOL/L (3.5-5.1); SODIUM 152 MMOL/L (135-145); TOTAL CARBON DIOXIDE 25.9 MMOL/L (24-32); TOTAL PROTEIN 5.8 G/DL (6.4-8.2); eGFR 49 ML/MIN
[2018-01-11 06:55] LABS: INR 2.7 INR
[2018-01-11] MEDS: levoTHYROXINE 25mcg tablet PO SCH (07:00)
[2018-01-11] MEDS: lactobacillus rhamnosus 10,000 MMU CELLS/CAPSULE PO SCH ×2 (07:30→17:30)
[2018-01-11] MEDS ORDERED: albumin (human) 25% 100 ML IV solution IV ONE (07:45)
[2018-01-11] MEDS: metoprolol tartrate 12.5mg (1/2 tablet) PO SCH ×2 (08:00→20:00)
[2018-01-11] MEDS: NUT.TX.GLUC.INTOLER,LAC-FR,REG (BOOST GLUCOSE CONTROL) 237 ML PO SCH ×3 (08:00→18:00)
[2018-01-11] MEDS: docusate sod 100mg capsule PO SCH ×2 (08:00→20:00)
[2018-01-11] MEDS: aspirin 81mg tablet.DR PO SCH (08:00)
[2018-01-11] MEDS: losartan 25mg tablet PO SCH (08:00)
[2018-01-11] MEDS: K and/or MAG REPLACEMENT MC SCH (08:00)
[2018-01-11] MEDS: atorvastatin 20mg tablet PO SCH (08:00)
[2018-01-11] MEDS: dextrose 5%-water 1,000 ML IV SCH ×2 (08:31→23:03)
[2018-01-11] MEDS: insulin Lispro (HumaLOG) vial - multi-dose SQ SCH ×2 (08:36→13:16)
[2018-01-11 11:00] VITALS: BP 120/80
[2018-01-11 15:00] VITALS: BP 120/78
[2018-01-11] MEDS ORDERED: ipratropium/albuterol 3ml nebule NEB PRN (16:10)
[2018-01-11 16:56] LABS: ABG BASE EXCESS 2.4 mmol/L (-2.0-3.0); ABG HCO3 27.1 mmol/L (22.0-26.0); ABG PCO2 (T) 42.3 mmHg (32.0-45.0); ABG PH (T) 7.424 (7.350-7.450); ABG PO2 (T) 46.3 mmHg (83-108); ALLEN'S TEST Positive; FCOHb 0.8 % (0.5-1.5); FLOW 2 L/min; FMetHb 0.3 % (0.3-1.12); FO2Hb 79.1 % (94-100); TOTAL HEMOGLOBIN 13.3 G/dl (12.0-16.0)
[2018-01-11 19:00] VITALS: BP 95/54
[2018-01-11 19:16] LABS: ABG BASE EXCESS 2.6 mmol/L (-2.0-3.0); ABG HCO3 25.5 mmol/L (22.0-26.0); ABG OXYGEN SATURATION 98.7 % (95-98); ABG PCO2 (T) 32.8 mmHg (32.0-45.0); ABG PH (T) 7.507 (7.350-7.450); ABG PO2 (T) 127.6 mmHg (83-108); FCOHb 0.7 % (0.5-1.5); FLOW 15 L/min; FMetHb 0.2 % (0.3-1.12); FO2Hb 97.8 % (94-100); PATIENT TEMPERATURE 36.5
[2018-01-11 23:00] VITALS: BP 116/60
[2018-01-11] MEDS: nicotine 21mg patch - 24 hr TD SCH (23:04)
[2018-01-12] MEDS: insulin glargine (Lantus) pen - multi-dose SQ SCH ×2 (00:21→22:47)
[2018-01-12 03:00] VITALS: BP 108/56
[2018-01-12] MEDS: clindamycin phosphate inj 300 MG in dextrose 5%-water 50ml 48 ML IV SCH ×4 (03:07→19:14)
[2018-01-12 06:00] VITALS: BP 121/76
[2018-01-12 06:37] LABS: BASOPHILS % (AUTO) 0.2 % (0-1); EOSINOPHILS # (AUTO) 0.3 X10'3 (0-0.9); EOSINOPHILS % (AUTO) 3.1 % (0-6); HEMATOCRIT 36.8 % (35.0-45.0); HEMOGLOBIN 11.8 g/dl (12.0-16.0); LYMPHOCYTES % (AUTO) 11.4 % (21-51); MEAN CORPUSCULAR HEMOGLOBIN 26.7 PG (27.0-31.0); MEAN CORPUSCULAR VOLUME 83.3 FL (78-98); MEAN PLATELET VOLUME 8.6 FL (7.4-10.4); MONOCYTES # (AUTO) 0.5 X10'3 (0-0.9); MONOCYTES % (AUTO) 5.3 % (2-12); NEUTROPHILS # (AUTO) 7.1 X10'3 (1.8-7.7); PLATELET COUNT 215 X10'3 (140-440); RED BLOOD COUNT 4.42 X10'6 (4.20-5.60); RED CELL DISTRIBUTION WIDTH 21.1 % (11.5-14.5); WHITE BLOOD COUNT 8.8 X10'3 (4.5-11.0)
[2018-01-12 06:51] LABS: INR 2.1 INR; PROTHROMBIN TIME 21.5 SECONDS (9.0-12.0)
[2018-01-12 06:58] LABS: ALANINE AMINOTRANSFERASE 231 U/L (12-78); ALBUMIN 1.9 G/DL (3.4-5.0); ALBUMIN/GLOBULIN RATIO 0.5 (1.1-1.5); ALKALINE PHOSPHATASE 241 IU/L (46-116); ANION GAP 7 (8-16); ASPARTATE AMINO TRANSFERASE 407 U/L (10-37); BLOOD UREA NITROGEN 22 MG/DL (7-18); BUN/CREATININE RATIO 24.2 (6.6-38.0); CALCIUM 7.9 MG/DL (8.5-10.1); CHLORIDE 113 MMOL/L (99-107); CREATININE 0.91 MG/DL (0.40-0.90); GLUCOSE 137 MG/DL (70-104); MAGNESIUM 1.1 MG/DL (1.5-2.4); PHOSPHORUS 1.5 MG/DL (2.3-4.5); POTASSIUM 3.2 MMOL/L (3.5-5.1); SODIUM 151 MMOL/L (135-145); TOTAL CARBON DIOXIDE 30.7 MMOL/L (24-32); TOTAL PROTEIN 5.4 G/DL (6.4-8.2); eGFR 62 ML/MIN
[2018-01-12] MEDS ORDERED: potassium Cl 20 mEq SR tablet PO PRN ×2 (07:35)
[2018-01-12] MEDS: magnesium Cl slow-release 64mg tablet PO PRN ×2 (07:55→19:15)
[2018-01-12] MEDS: levoTHYROXINE 25mcg tablet PO SCH (07:58)
[2018-01-12] MEDS: metoprolol tartrate 12.5mg (1/2 tablet) PO SCH ×2 (07:58→19:14)
[2018-01-12] MEDS: docusate sod 100mg capsule PO SCH ×2 (07:59→19:14)
[2018-01-12] MEDS: lactobacillus rhamnosus 10,000 MMU CELLS/CAPSULE PO SCH ×2 (07:59→14:52)
[2018-01-12] MEDS: losartan 25mg tablet PO SCH (07:59)
[2018-01-12] MEDS: aspirin 81mg tablet.DR PO SCH (07:59)
[2018-01-12] MEDS: atorvastatin 20mg tablet PO SCH (07:59)
[2018-01-12] MEDS: K and/or MAG REPLACEMENT MC SCH (08:00)
[2018-01-12] MEDS ORDERED: RIVASTIGMINE 13.3MG/24HR PATCH TOP SCH (08:00)
[2018-01-12] MEDS: insulin Lispro (HumaLOG) vial - multi-dose SQ SCH ×2 (08:02→18:49)
[2018-01-12] MEDS: NUT.TX.GLUC.INTOLER,LAC-FR,REG (BOOST GLUCOSE CONTROL) 237 ML PO SCH ×3 (08:05→18:42)
[2018-01-12] MEDS: enoxaparin 60mg/0.6ml syringe SUBCUT SCH ×2 (10:03→19:17)
[2018-01-12] MEDS: dextrose 5%-water 1,000 ML IV SCH ×2 (10:20→14:48)
[2018-01-12 11:00] VITALS: BP 107/83
[2018-01-12 15:00] VITALS: BP 107/61
[2018-01-12 15:16] LABS: HBSAG SCREEN Negative (Negative); HEP A AB, IGM Negative (Negative); HEP B CORE AB, IGM Negative (Negative); HEPATITIS C ANTIBODY 0.1 s/co ratio (0.0-0.9)
[2018-01-12 19:00] VITALS: BP 106/67
[2018-01-12] MEDS ORDERED: warfarin 2.5mg tablet PO ONE (21:00)
[2018-01-12] MEDS: nicotine 21mg patch - 24 hr TD SCH (22:34)
[2018-01-12 23:00] VITALS: BP 102/76
[2018-01-13 02:00] VITALS: BP 105/69
[2018-01-13] MEDS: clindamycin phosphate inj 300 MG in dextrose 5%-water 50ml 48 ML IV SCH ×4 (03:22→20:45)
[2018-01-13 05:46] LABS: BASOPHILS # (AUTO) 0.1 X10'3 (0-0.2); BASOPHILS % (AUTO) 0.9 % (0-1); EOSINOPHILS # (AUTO) 0.2 X10'3 (0-0.9); HEMATOCRIT 38.7 % (35.0-45.0); HEMOGLOBIN 12.6 g/dl (12.0-16.0); LYMPHOCYTES # (AUTO) 1.3 X10'3 (1.1-4.8); LYMPHOCYTES % (AUTO) 15.3 % (21-51); MEAN CORPUSCULAR HEMOGLOBIN 26.9 PG (27.0-31.0); MEAN CORPUSCULAR HGB CONC 32.7 % (33.0-36.5); MEAN CORPUSCULAR VOLUME 82.2 FL (78-98); MEAN PLATELET VOLUME 8.9 FL (7.4-10.4); MONOCYTES # (AUTO) 0.5 X10'3 (0-0.9); MONOCYTES % (AUTO) 5.2 % (2-12); NEUTROPHILS # (AUTO) 6.7 X10'3 (1.8-7.7); NEUTROPHILS % (AUTO) 76.6 % (42-75); PLATELET COUNT 244 X10'3 (140-440); RED CELL DISTRIBUTION WIDTH 20.6 % (11.5-14.5); WHITE BLOOD COUNT 8.8 X10'3 (4.5-11.0)
[2018-01-13 05:54] LABS: INR 2.3 INR; PROTHROMBIN TIME 22.8 SECONDS (9.0-12.0)
[2018-01-13 06:02] LABS: ALANINE AMINOTRANSFERASE 236 U/L (12-78); ALBUMIN 2.1 G/DL (3.4-5.0); ALBUMIN/GLOBULIN RATIO 0.5 (1.1-1.5); ALKALINE PHOSPHATASE 277 IU/L (46-116); ANION GAP 9 (8-16); ASPARTATE AMINO TRANSFERASE 309 U/L (10-37); BILIRUBIN,TOTAL 1.6 MG/DL (0.1-1.0); BLOOD UREA NITROGEN 23 MG/DL (7-18); CALCIUM 8.1 MG/DL (8.5-10.1); CHLORIDE 108 MMOL/L (99-107); GLUCOSE 173 MG/DL (70-104); MAGNESIUM 1.1 MG/DL (1.5-2.4); PHOSPHORUS 1.9 MG/DL (2.3-4.5); POTASSIUM 4.1 MMOL/L (3.5-5.1); SODIUM 145 MMOL/L (135-145); TOTAL CARBON DIOXIDE 28.1 MMOL/L (24-32); TOTAL PROTEIN 6.4 G/DL (6.4-8.2); eGFR 55 ML/MIN
[2018-01-13] MEDS ORDERED: magnesium 2GM in 50ml NS 50 ML IV PRN ×2 (07:05→07:40)
[2018-01-13] MEDS ORDERED: magnesium 4gm in 100ml NS 100 ML IV PRN (07:05)
[2018-01-13] MEDS ORDERED: magnesium Cl slow-release 64mg tablet PO PRN ×2 (07:05→07:40)
[2018-01-13] MEDS: metoprolol tartrate 12.5mg (1/2 tablet) PO SCH (07:23)
[2018-01-13] MEDS: atorvastatin 20mg tablet PO SCH (07:23)
[2018-01-13] MEDS: aspirin 81mg tablet.DR PO SCH (07:24)
[2018-01-13] MEDS: docusate sod 100mg capsule PO SCH ×2 (07:26→20:45)
[2018-01-13] MEDS: levoTHYROXINE 25mcg tablet PO SCH (07:26)
[2018-01-13] MEDS: lactobacillus rhamnosus 10,000 MMU CELLS/CAPSULE PO SCH ×2 (07:26→17:06)
[2018-01-13] MEDS: enoxaparin 60mg/0.6ml syringe SUBCUT SCH (07:29)
[2018-01-13] MEDS ORDERED: potassium Cl 20 mEq SR tablet PO PRN (07:40)
[2018-01-13] MEDS ORDERED: potassium Cl 40MEQ/NS 500ml 500 ML IV PRN ×2 (07:40)
[2018-01-13] MEDS: losartan 25mg tablet PO SCH (07:40)
[2018-01-13] MEDS ORDERED: albumin (human) 25% 100 ML IV solution IV ONE (07:45)
[2018-01-13] MEDS: K and/or MAG REPLACEMENT MC SCH (08:00)
[2018-01-13] MEDS: NUT.TX.GLUC.INTOLER,LAC-FR,REG (BOOST GLUCOSE CONTROL) 237 ML PO SCH ×3 (08:00→18:00)
[2018-01-13 08:26] LABS: ABG BASE EXCESS 2.8 mmol/L (-2.0-3.0); ABG HCO3 23.6 mmol/L (22.0-26.0); ABG OXYGEN SATURATION 97.1 % (95-98); ABG PCO2 (T) 25.4 mmHg (32.0-45.0); ABG PH (T) 7.583 (7.350-7.450); ABG PO2 (T) 77.5 mmHg (83-108); FCOHb 0.8 % (0.5-1.5); FLOW 6 L/min; FMetHb 0.1 % (0.3-1.12); FO2Hb 96.2 % (94-100); PATIENT TEMPERATURE 36.4; TOTAL HEMOGLOBIN 13.3 G/dl (12.0-16.0)
[2018-01-13 09:22] VITALS: BP 104/75
[2018-01-13 11:00] VITALS: BP 112/78
[2018-01-13] MEDS: dextrose 5%-water 1,000 ML IV SCH (12:18)
[2018-01-13] MEDS: nystatin 500,000 unit/5ML UD oral suspension PO SCH ×3 (12:54→20:45)
[2018-01-13] MEDS: insulin Lispro (HumaLOG) vial - multi-dose SQ SCH (13:54)
[2018-01-13 15:00] VITALS: BP 119/85
[2018-01-13 16:31] LABS: D-DIMER 1.13 MG/L FEU (0-0.50)
[2018-01-13 19:00] VITALS: BP 119/89
[2018-01-13] MEDS ORDERED: enoxaparin 60mg/0.6ml syringe SUBCUT ONE (20:00)
[2018-01-13] MEDS: carVEDilol 3.125mg tablet PO SCH (20:00)
[2018-01-13] MEDS: nicotine 21mg patch - 24 hr TD SCH (20:46)
[2018-01-13] MEDS ORDERED: warfarin 2.5mg tablet PO ONE (21:00)
[2018-01-13] MEDS ORDERED: insulin glargine (Lantus) pen - multi-dose SQ ONE (21:15)
[2018-01-13 23:00] VITALS: BP 109/69
[2018-01-14] MEDS: clindamycin phosphate inj 300 MG in dextrose 5%-water 50ml 48 ML IV SCH ×4 (02:35→19:38)
[2018-01-14] MEDS: dextrose 5%-water 1,000 ML IV SCH ×3 (02:40→19:38)
[2018-01-14 03:00] VITALS: BP 109/79
[2018-01-14 05:57] LABS: BASOPHILS % (AUTO) 0 % (0-1); EOSINOPHILS # (AUTO) 0.1 X10'3 (0-0.9); EOSINOPHILS % (AUTO) 1.4 % (0-6); HEMATOCRIT 35.8 % (35.0-45.0); HEMOGLOBIN 11.8 g/dl (12.0-16.0); LYMPHOCYTES # (AUTO) 1.4 X10'3 (1.1-4.8); MEAN CORPUSCULAR HGB CONC 32.8 % (33.0-36.5); MEAN CORPUSCULAR VOLUME 82.3 FL (78-98); MEAN PLATELET VOLUME 9.6 FL (7.4-10.4); MONOCYTES # (AUTO) 0.5 X10'3 (0-0.9); MONOCYTES % (AUTO) 5.4 % (2-12); NEUTROPHILS # (AUTO) 6.5 X10'3 (1.8-7.7); NEUTROPHILS % (AUTO) 76.2 % (42-75); PLATELET COUNT 213 X10'3 (140-440); RED BLOOD COUNT 4.35 X10'6 (4.20-5.60); RED CELL DISTRIBUTION WIDTH 21.1 % (11.5-14.5); WHITE BLOOD COUNT 8.5 X10'3 (4.5-11.0)
[2018-01-14 06:00] VITALS: BP 113/75
[2018-01-14 06:03] LABS: INR 1.5 INR; PROTHROMBIN TIME 15.7 SECONDS (9.0-12.0)
[2018-01-14 06:33] LABS: ALANINE AMINOTRANSFERASE 172 U/L (12-78); ALBUMIN 2.1 G/DL (3.4-5.0); ALBUMIN/GLOBULIN RATIO 0.6 (1.1-1.5); ALKALINE PHOSPHATASE 230 IU/L (46-116); ANION GAP 8 (8-16); ASPARTATE AMINO TRANSFERASE 164 U/L (10-37); BILIRUBIN,TOTAL 1.4 MG/DL (0.1-1.0); BLOOD UREA NITROGEN 23 MG/DL (7-18); BUN/CREATININE RATIO 25.8 (6.6-38.0); CHLORIDE 105 MMOL/L (99-107); CREATININE 0.89 MG/DL (0.40-0.90); GLUCOSE 202 MG/DL (70-104); MAGNESIUM 1.5 MG/DL (1.5-2.4); POTASSIUM 3.6 MMOL/L (3.5-5.1); SODIUM 141 MMOL/L (135-145); TOTAL CARBON DIOXIDE 28.3 MMOL/L (24-32); TOTAL PROTEIN 5.9 G/DL (6.4-8.2); eGFR 63 ML/MIN
[2018-01-14] MEDS: lactobacillus rhamnosus 10,000 MMU CELLS/CAPSULE PO SCH ×2 (07:18→17:29)
[2018-01-14] MEDS: aspirin 81mg tablet.DR PO SCH (07:18)
[2018-01-14] MEDS: atorvastatin 20mg tablet PO SCH (07:18)
[2018-01-14] MEDS: docusate sod 100mg capsule PO SCH ×2 (07:18→19:39)
[2018-01-14] MEDS: nystatin 500,000 unit/5ML UD oral suspension PO SCH ×4 (07:18→19:39)
[2018-01-14] MEDS: levoTHYROXINE 25mcg tablet PO SCH (07:18)
[2018-01-14] MEDS: carVEDilol 3.125mg tablet PO SCH ×2 (07:18→19:39)
[2018-01-14] MEDS: K and/or MAG REPLACEMENT MC SCH (08:00)
[2018-01-14] MEDS: NUT.TX.GLUC.INTOLER,LAC-FR,REG (BOOST GLUCOSE CONTROL) 237 ML PO SCH ×3 (08:58→18:25)
[2018-01-14] MEDS: insulin Lispro (HumaLOG) vial - multi-dose SQ SCH ×2 (09:02→13:14)
[2018-01-14 11:00] VITALS: BP 100/61
[2018-01-14 15:00] VITALS: BP 101/56
[2018-01-14 19:00] VITALS: BP 109/77
[2018-01-14] MEDS: nicotine 21mg patch - 24 hr TD SCH (19:38)
[2018-01-14] MEDS ORDERED: warfarin 5mg tablet PO ONE (21:00)
[2018-01-14] MEDS: insulin glargine (Lantus) pen - multi-dose SQ SCH (21:21)
[2018-01-14] MEDS: furosemide 40mg/4ml inj IV SCH (22:00)
[2018-01-14 23:00] VITALS: BP 119/81
[2018-01-15] VITALS (9 sets, daily range): BP systolic 73–128; BP diastolic 45–75
[2018-01-15] MEDS: clindamycin phosphate inj 300 MG in dextrose 5%-water 50ml 48 ML IV SCH ×4 (02:07→20:45)
[2018-01-15 05:53] LABS: BASOPHILS % (AUTO) 0.1 % (0-1); EOSINOPHILS # (AUTO) 0.2 X10'3 (0-0.9); EOSINOPHILS % (AUTO) 2.3 % (0-6); HEMATOCRIT 37.1 % (35.0-45.0); HEMOGLOBIN 12.2 g/dl (12.0-16.0); LYMPHOCYTES # (AUTO) 1.1 X10'3 (1.1-4.8); MEAN CORPUSCULAR VOLUME 81.6 FL (78-98); MEAN PLATELET VOLUME 9.5 FL (7.4-10.4); MONOCYTES # (AUTO) 0.4 X10'3 (0-0.9); MONOCYTES % (AUTO) 5.4 % (2-12); NEUTROPHILS # (AUTO) 5.8 X10'3 (1.8-7.7); NEUTROPHILS % (AUTO) 77.2 % (42-75); PLATELET COUNT 195 X10'3 (140-440); RED BLOOD COUNT 4.54 X10'6 (4.20-5.60); RED CELL DISTRIBUTION WIDTH 20.5 % (11.5-14.5); WHITE BLOOD COUNT 7.5 X10'3 (4.5-11.0)
[2018-01-15 05:57] LABS: INR 1.4 INR; PROTHROMBIN TIME 14.7 SECONDS (9.0-12.0)
[2018-01-15 06:06] LABS: ALANINE AMINOTRANSFERASE 123 U/L (12-78); ALBUMIN/GLOBULIN RATIO 0.5 (1.1-1.5); ALKALINE PHOSPHATASE 217 IU/L (46-116); ANION GAP 7 (8-16); ASPARTATE AMINO TRANSFERASE 92 U/L (10-37); BILIRUBIN,TOTAL 1.5 MG/DL (0.1-1.0); BLOOD UREA NITROGEN 19 MG/DL (7-18); CALCIUM 8.2 MG/DL (8.5-10.1); CHLORIDE 103 MMOL/L (99-107); CREATININE 0.73 MG/DL (0.40-0.90); GLUCOSE 165 MG/DL (70-104); SODIUM 142 MMOL/L (135-145); TOTAL CARBON DIOXIDE 32.2 MMOL/L (24-32); TOTAL PROTEIN 5.9 G/DL (6.4-8.2); eGFR 80 ML/MIN
[2018-01-15 06:44] LABS: POTASSIUM 2.9 MMOL/L (3.5-5.1)
[2018-01-15] MEDS: lactobacillus rhamnosus 10,000 MMU CELLS/CAPSULE PO SCH ×2 (07:15→16:57)
[2018-01-15] MEDS: levoTHYROXINE 25mcg tablet PO SCH (07:15)
[2018-01-15] MEDS: carVEDilol 3.125mg tablet PO SCH ×2 (07:15→20:46)
[2018-01-15] MEDS: atorvastatin 20mg tablet PO SCH (07:15)
[2018-01-15] MEDS: docusate sod 100mg capsule PO SCH ×3 (07:15→20:46)
[2018-01-15] MEDS: aspirin 81mg tablet.DR PO SCH (07:15)
[2018-01-15] MEDS: nystatin 500,000 unit/5ML UD oral suspension PO SCH ×4 (07:15→20:45)
[2018-01-15] MEDS: furosemide 40mg/4ml inj IV SCH ×2 (07:16→20:45)
[2018-01-15] MEDS: potassium Cl 20 mEq SR tablet PO PRN ×3 (07:16→20:46)
[2018-01-15] MEDS: K and/or MAG REPLACEMENT MC SCH (07:35)
[2018-01-15] MEDS: NUT.TX.GLUC.INTOLER,LAC-FR,REG (BOOST GLUCOSE CONTROL) 237 ML PO SCH ×3 (08:00→17:56)
[2018-01-15] MEDS ORDERED: normal saline 1000ml 1,000 ML IV ONE (10:25)
[2018-01-15 11:12] LABS: HBSAG SCREEN Negative (Negative); HEP A AB, IGM Negative (Negative); HEP B CORE AB, IGM Negative (Negative); HEPATITIS C ANTIBODY <0.1 s/co ratio (0.0-0.9)
[2018-01-15] MEDS: dextrose 5%-water 1,000 ML IV SCH (13:55)
[2018-01-15] MEDS: nicotine 21mg patch - 24 hr TD SCH (20:45)
[2018-01-15] MEDS ORDERED: warfarin 5mg tablet PO ONE (21:00)
[2018-01-15] MEDS: insulin glargine (Lantus) pen - multi-dose SQ SCH (21:00)
[2018-01-16] VITALS (7 sets, daily range): BP systolic 94–117; BP diastolic 61–86
[2018-01-16] MEDS: clindamycin phosphate inj 300 MG in dextrose 5%-water 50ml 48 ML IV SCH ×4 (02:25→21:15)
[2018-01-16 05:24] LABS: BASOPHILS % (AUTO) 0.2 % (0-1); EOSINOPHILS # (AUTO) 0.2 X10'3 (0-0.9); EOSINOPHILS % (AUTO) 1.8 % (0-6); HEMATOCRIT 38.9 % (35.0-45.0); HEMOGLOBIN 12.7 g/dl (12.0-16.0); LYMPHOCYTES # (AUTO) 1.3 X10'3 (1.1-4.8); MEAN CORPUSCULAR HEMOGLOBIN 26.7 PG (27.0-31.0); MEAN CORPUSCULAR HGB CONC 32.7 % (33.0-36.5); MEAN CORPUSCULAR VOLUME 81.7 FL (78-98); MEAN PLATELET VOLUME 8.9 FL (7.4-10.4); MONOCYTES # (AUTO) 0.4 X10'3 (0-0.9); NEUTROPHILS # (AUTO) 6.8 X10'3 (1.8-7.7); PLATELET COUNT 208 X10'3 (140-440); RED BLOOD COUNT 4.75 X10'6 (4.20-5.60); RED CELL DISTRIBUTION WIDTH 20.8 % (11.5-14.5); WHITE BLOOD COUNT 8.8 X10'3 (4.5-11.0)
[2018-01-16 05:32] LABS: INR 1.3 INR; PROTHROMBIN TIME 13.4 SECONDS (9.0-12.0)
[2018-01-16 05:59] LABS: GLUCOSE 194 MG/DL (70-104); SODIUM 140 MMOL/L (135-145)
[2018-01-16 06:00] LABS: ALBUMIN 1.8 G/DL (3.4-5.0); ANION GAP 2 (8-16); BLOOD UREA NITROGEN 14 MG/DL (7-18); BUN/CREATININE RATIO 20.6 (6.6-38.0); CALCIUM 7.9 MG/DL (8.5-10.1); CHLORIDE 102 MMOL/L (99-107); CREATININE 0.68 MG/DL (0.40-0.90); POTASSIUM 3.4 MMOL/L (3.5-5.1); TOTAL CARBON DIOXIDE 35.6 MMOL/L (24-32); eGFR 87 ML/MIN
[2018-01-16] MEDS: dextrose 5%-water 1,000 ML IV SCH ×2 (07:40→21:00)
[2018-01-16] MEDS: K and/or MAG REPLACEMENT MC SCH (08:00)
[2018-01-16] MEDS: atorvastatin 20mg tablet PO SCH (08:50)
[2018-01-16] MEDS: nystatin 500,000 unit/5ML UD oral suspension PO SCH ×4 (08:50→21:08)
[2018-01-16] MEDS: carVEDilol 3.125mg tablet PO SCH ×2 (08:51→21:12)
[2018-01-16] MEDS: docusate sod 100mg capsule PO SCH ×2 (08:51→20:00)
[2018-01-16] MEDS: furosemide 40mg/4ml inj IV SCH ×2 (08:51→21:12)
[2018-01-16] MEDS: aspirin 81mg tablet.DR PO SCH (08:51)
[2018-01-16] MEDS: NUT.TX.GLUC.INTOLER,LAC-FR,REG (BOOST GLUCOSE CONTROL) 237 ML PO SCH ×3 (08:51→18:57)
[2018-01-16] MEDS: levoTHYROXINE 25mcg tablet PO SCH (08:55)
[2018-01-16] MEDS: lactobacillus rhamnosus 10,000 MMU CELLS/CAPSULE PO SCH ×2 (08:55→17:42)
[2018-01-16] MEDS: insulin Lispro (HumaLOG) vial - multi-dose SQ SCH (14:29)
[2018-01-16] MEDS ORDERED: potassium Cl 20 mEq SR tablet PO PRN ×2 (15:05)
[2018-01-16] MEDS ORDERED: potassium Cl 40MEQ/NS 500ml 500 ML IV PRN ×2 (15:05)
[2018-01-16] MEDS ORDERED: potassium Cl oral solution 20 MEQ/15 ML PO PRN (16:00)
[2018-01-16] MEDS: potassium Cl oral solution 20 MEQ/15 ML PO PRN ×2 (16:10→21:08)
[2018-01-16] MEDS ORDERED: warfarin 3mg tablet PO ONE (21:00)
[2018-01-16] MEDS: insulin glargine (Lantus) pen - multi-dose SQ SCH (21:00)
[2018-01-16] MEDS: nicotine 21mg patch - 24 hr TD SCH (21:15)
[2018-01-17] MEDS: clindamycin phosphate inj 300 MG in dextrose 5%-water 50ml 48 ML IV SCH ×4 (02:37→20:45)
[2018-01-17 03:00] VITALS: BP 114/71
[2018-01-17 05:34] LABS: BASOPHILS % (AUTO) 0.3 % (0-1); EOSINOPHILS # (AUTO) 0.2 X10'3 (0-0.9); EOSINOPHILS % (AUTO) 2.3 % (0-6); HEMATOCRIT 39.3 % (35.0-45.0); HEMOGLOBIN 12.9 g/dl (12.0-16.0); LYMPHOCYTES # (AUTO) 1.5 X10'3 (1.1-4.8); LYMPHOCYTES % (AUTO) 17.8 % (21-51); MEAN CORPUSCULAR HEMOGLOBIN 26.7 PG (27.0-31.0); MEAN CORPUSCULAR HGB CONC 32.7 % (33.0-36.5); MEAN CORPUSCULAR VOLUME 81.7 FL (78-98); MEAN PLATELET VOLUME 9.2 FL (7.4-10.4); MONOCYTES # (AUTO) 0.6 X10'3 (0-0.9); MONOCYTES % (AUTO) 6.9 % (2-12); NEUTROPHILS # (AUTO) 6.2 X10'3 (1.8-7.7); NEUTROPHILS % (AUTO) 72.7 % (42-75); PLATELET COUNT 230 X10'3 (140-440); RED BLOOD COUNT 4.81 X10'6 (4.20-5.60); RED CELL DISTRIBUTION WIDTH 20.8 % (11.5-14.5); WHITE BLOOD COUNT 8.5 X10'3 (4.5-11.0)
[2018-01-17 05:37] LABS: INR 1.5 INR; PROTHROMBIN TIME 15.3 SECONDS (9.0-12.0)
[2018-01-17 05:44] LABS: ALBUMIN 1.9 G/DL (3.4-5.0); ANION GAP 3 (8-16); BLOOD UREA NITROGEN 12 MG/DL (7-18); BUN/CREATININE RATIO 19.7 (6.6-38.0); CHLORIDE 101 MMOL/L (99-107); CREATININE 0.61 MG/DL (0.40-0.90); GLUCOSE 173 MG/DL (70-104); MAGNESIUM 1.1 MG/DL (1.5-2.4); POTASSIUM 3.7 MMOL/L (3.5-5.1); SODIUM 138 MMOL/L (135-145); TOTAL CARBON DIOXIDE 34.1 MMOL/L (24-32); eGFR > 90 ML/MIN
[2018-01-17 06:00] VITALS: BP 129/71
[2018-01-17] MEDS: furosemide 40mg/4ml inj IV SCH ×2 (07:51→20:48)
[2018-01-17] MEDS: aspirin 81mg tablet.DR PO SCH (07:51)
[2018-01-17] MEDS: atorvastatin 20mg tablet PO SCH (07:52)
[2018-01-17] MEDS: levoTHYROXINE 25mcg tablet PO SCH (07:52)
[2018-01-17] MEDS: docusate sod 100mg capsule PO SCH ×2 (07:52→20:45)
[2018-01-17] MEDS: lactobacillus rhamnosus 10,000 MMU CELLS/CAPSULE PO SCH ×2 (07:52→17:27)
[2018-01-17] MEDS: carVEDilol 3.125mg tablet PO SCH ×2 (07:53→20:48)
[2018-01-17] MEDS: nystatin 500,000 unit/5ML UD oral suspension PO SCH ×4 (07:56→21:57)
[2018-01-17] MEDS: K and/or MAG REPLACEMENT MC SCH (08:00)
[2018-01-17] MEDS: NUT.TX.GLUC.INTOLER,LAC-FR,REG (BOOST GLUCOSE CONTROL) 237 ML PO SCH ×3 (08:07→18:00)
[2018-01-17] MEDS ORDERED: potassium Cl 40MEQ/NS 500ml 500 ML IV PRN ×2 (08:15)
[2018-01-17] MEDS ORDERED: magnesium 4gm in 100ml NS 100 ML IV PRN (08:15)
[2018-01-17] MEDS ORDERED: magnesium 2GM in 50ml NS 50 ML IV PRN (08:15)
[2018-01-17] MEDS ORDERED: potassium Cl 20 mEq SR tablet PO PRN ×2 (08:15)
[2018-01-17] MEDS: magnesium Cl slow-release 64mg tablet PO PRN ×2 (10:08→21:58)
[2018-01-17 11:00] VITALS: BP 130/90
[2018-01-17] MEDS: insulin Lispro (HumaLOG) vial - multi-dose SQ SCH ×2 (13:38→19:11)
[2018-01-17 15:00] VITALS: BP 104/69
[2018-01-17 18:00] VITALS: BP 114/84
[2018-01-17] MEDS: nicotine 21mg patch - 24 hr TD SCH (20:46)
[2018-01-17] MEDS ORDERED: warfarin 7.5mg tablet PO ONE (21:00)
[2018-01-17 22:00] VITALS: BP 121/70
[2018-01-17] MEDS: insulin glargine (Lantus) pen - multi-dose SQ SCH (22:03)
[2018-01-18 02:00] VITALS: BP 130/90
[2018-01-18] MEDS: clindamycin phosphate inj 300 MG in dextrose 5%-water 50ml 48 ML IV SCH ×3 (02:32→13:02)
[2018-01-18 06:00] VITALS: BP 116/66
[2018-01-18 06:30] LABS: INR 1.8 INR; PROTHROMBIN TIME 18.7 SECONDS (9.0-12.0)
[2018-01-18 06:31] LABS: BASOPHILS % (AUTO) 0.4 % (0-1); EOSINOPHILS # (AUTO) 0.2 X10'3 (0-0.9); EOSINOPHILS % (AUTO) 2.1 % (0-6); HEMATOCRIT 39.3 % (35.0-45.0); HEMOGLOBIN 13.1 g/dl (12.0-16.0); LYMPHOCYTES # (AUTO) 1.5 X10'3 (1.1-4.8); LYMPHOCYTES % (AUTO) 21.5 % (21-51); MEAN CORPUSCULAR HEMOGLOBIN 26.8 PG (27.0-31.0); MEAN CORPUSCULAR HGB CONC 33.3 % (33.0-36.5); MEAN CORPUSCULAR VOLUME 80.4 FL (78-98); MONOCYTES # (AUTO) 0.6 X10'3 (0-0.9); MONOCYTES % (AUTO) 8.4 % (2-12); NEUTROPHILS # (AUTO) 4.9 X10'3 (1.8-7.7); NEUTROPHILS % (AUTO) 67.6 % (42-75); PLATELET COUNT 216 X10'3 (140-440); RED BLOOD COUNT 4.89 X10'6 (4.20-5.60); WHITE BLOOD COUNT 7.2 X10'3 (4.5-11.0)
[2018-01-18 06:34] LABS: ALBUMIN 1.9 G/DL (3.4-5.0); ANION GAP 6 (8-16); BLOOD UREA NITROGEN 11 MG/DL (7-18); BUN/CREATININE RATIO 18.3 (6.6-38.0); CALCIUM 7.8 MG/DL (8.5-10.1); CHLORIDE 101 MMOL/L (99-107); GLUCOSE 104 MG/DL (70-104); MAGNESIUM 1.2 MG/DL (1.5-2.4); SODIUM 141 MMOL/L (135-145); TOTAL CARBON DIOXIDE 34.5 MMOL/L (24-32); eGFR > 90 ML/MIN
[2018-01-18 06:52] LABS: POTASSIUM 2.6 MMOL/L (3.5-5.1)
[2018-01-18] MEDS: docusate sod 100mg capsule PO SCH (07:38)
[2018-01-18] MEDS: aspirin 81mg tablet.DR PO SCH (07:38)
[2018-01-18] MEDS: atorvastatin 20mg tablet PO SCH (07:38)
[2018-01-18] MEDS: levoTHYROXINE 25mcg tablet PO SCH (07:38)
[2018-01-18] MEDS: carVEDilol 3.125mg tablet PO SCH (07:38)
[2018-01-18] MEDS: lactobacillus rhamnosus 10,000 MMU CELLS/CAPSULE PO SCH (07:38)
[2018-01-18] MEDS: nystatin 500,000 unit/5ML UD oral suspension PO SCH ×3 (07:39→17:50)
[2018-01-18] MEDS: furosemide 40mg/4ml inj IV SCH (07:39)
[2018-01-18] MEDS: magnesium Cl slow-release 64mg tablet PO PRN (07:39)
[2018-01-18] MEDS: K and/or MAG REPLACEMENT MC SCH (07:40)
[2018-01-18] MEDS: NUT.TX.GLUC.INTOLER,LAC-FR,REG (BOOST GLUCOSE CONTROL) 237 ML PO SCH ×3 (08:03→18:03)
[2018-01-18] MEDS: insulin Lispro (HumaLOG) vial - multi-dose SQ SCH ×3 (09:42→18:58)
[2018-01-18 11:00] VITALS: BP 91/66
[2018-01-18] MEDS ORDERED: potassium Cl oral solution 20 MEQ/15 ML PO ONE ×2 (11:45→17:45)
[2018-01-18] MEDS ORDERED: potassium Cl 20 mEq/100mL bag IV ONE (12:00)
[2018-01-18] MEDS ORDERED: potassium CL 10mEq/100ml bag 100 ML IV SCH (12:10)
[2018-01-18] MEDS ORDERED: Potassium Cl inj 20 MEQ in normal saline 250ml IV soln 250 ML IV ONE (12:30)
[2018-01-18] MEDS ORDERED: NICO-687 TD (15:30)
[2018-01-18] MEDS ORDERED: [UNRECOGNIZED DRUG - CODE] PO (15:30)
[2018-01-18] MEDS ORDERED: COR3.125T PO (15:30)
[2018-01-18] MEDS ORDERED: ATOR20TA66 PO (15:30)
[2018-01-18] MEDS ORDERED: NYST1000 PO (15:30)
[2018-01-18] MEDS ORDERED: potassium Cl 20 mEq SR tablet PO STA (17:26)
== END 2018-01-18 19:30 | DRG 871 ==
LOC: ER 16:36 → ED HOLD 19:29 → EDBEDREQ 01-03 05:51 → PCU 3S 01-03 07:55 → CICU 2S 01-05 17:50 → PCU 3S 01-08 17:06
PROVIDERS: ADMIT Internal Medicine; ATTEND Internal Medicine
PROC: 5A09457 Assistance with Respiratory Ventilation, 24-96 Consecutive Hours, Continuous Positive Airway Pressure (ICD-10-PCS; 2018-01-05)
PROC: 06HM33Z Insertion of Infusion Device into Right Femoral Vein, Percutaneous Approach (ICD-10-PCS; 2018-01-05)
PROC: 0W993ZZ Drainage of Right Pleural Cavity, Percutaneous Approach (ICD-10-PCS; 2018-01-15)
PROC: 0W9B3ZZ Drainage of Left Pleural Cavity, Percutaneous Approach (ICD-10-PCS; 2018-01-15)
PROC: 5A09357 Assistance with Respiratory Ventilation, Less than 24 Consecutive Hours, Continuous Positive Airway Pressure (ICD-10-PCS; principal; 2018-01-16)
DX: A41.9 Sepsis, unspecified organism (principal); E43 Unspecified severe protein-calorie malnutrition; R57.9 Shock, unspecified; J69.0 Pneumonitis due to inhalation of food and vomit; G93.41 Metabolic encephalopathy; I50.23 Acute on chronic systolic (congestive) heart failure; J90 Pleural effusion, not elsewhere classified; N20.1 Calculus of ureter; N12 Tubulo-interstitial nephritis, not specified as acute or chronic; J98.11 Atelectasis; E87.0 Hyperosmolality and hypernatremia; E11.40 Type 2 diabetes mellitus with diabetic neuropathy, unspecified; E11.621 Type 2 diabetes mellitus with foot ulcer; G89.29 Other chronic pain; M54.9 Dorsalgia, unspecified; M19.90 Unspecified osteoarthritis, unspecified site; E11.65 Type 2 diabetes mellitus with hyperglycemia; E05.90 Thyrotoxicosis, unspecified without thyrotoxic crisis or storm; E78.00 Pure hypercholesterolemia, unspecified; F41.9 Anxiety disorder, unspecified; F32.9 Major depressive disorder, single episode, unspecified; F43.10 Post-traumatic stress disorder, unspecified; I11.0 Hypertensive heart disease with heart failure; I35.0 Nonrheumatic aortic (valve) stenosis; J44.9 Chronic obstructive pulmonary disease, unspecified; K21.9 Gastro-esophageal reflux disease without esophagitis; L08.9 Local infection of the skin and subcutaneous tissue, unspecified; L97.519 Non-pressure chronic ulcer of other part of right foot with unspecified severity; R09.02 Hypoxemia; R62.7 Adult failure to thrive; Z51.5 Encounter for palliative care; Z90.49 Acquired absence of other specified parts of digestive tract; I25.2 Old myocardial infarction; Z95.2 Presence of prosthetic heart valve; Z88.1 Allergy status to other antibiotic agents; Z88.0 Allergy status to penicillin; Z88.8 Allergy status to other drugs, medicaments and biological substances; Z79.01 Long term (current) use of anticoagulants; Z79.84 Long term (current) use of oral hypoglycemic drugs; Z79.899 Other long term (current) drug therapy; Z85.3 Personal history of malignant neoplasm of breast; Z87.891 Personal history of nicotine dependence; Z68.21 Body mass index [BMI] 21.0-21.9, adult
CPT/HCPCS: 32555; 36415; 36600; 70450; 71045; 71250; 73630; 74176; 80048; 80053; 80074; 81001; 82803; 82947; 82948; 83036; 83605; 83735; 83880; 84100; 84132; 84145; 84443; 84484; 85018; 85025; 85379; 85610; 85651; 85730; 87040; 87070; 87088; 87502; 87503; 92616; 93005; 94640; 94660; 94760; 96374; 97110; 97162; 97530; 99285; A4315; A6212; A6213; A6222; A6223; A6257; A6446; A6449; A9270; C1751; J0692; J1650; J1815; J1940; J2310; J3370; J3430; J3475; J3480; J3490; J7030; J7060; J7070; P9047

== ENCOUNTER 2018-02-28 07:53 | Inpatient (IN) | payer MEDICARE, OTHER ==
[~2018-02-28] VITALS: Ht 165.1 cm; Wt 81.9 kg
[2018-02-28] MEDS ORDERED: naloxone 0.4 mg/ml inj IV ONE (08:05)
[2018-02-28] MEDS ORDERED: dextrose 50%-water 50ml dispensing syringe IV ONE (08:05)
[2018-02-28] MEDS ORDERED: normal saline 1000ML IV soln IV ONE (08:05)
[2018-02-28] MEDS ORDERED: dextrose 5%-normal saline 1,000 ML IV ONE (08:25)
[2018-02-28] MEDS ORDERED: levoFLOXACIN-Levaquin 750MG/D5 150 ML IV ONE (08:40)
[2018-02-28 08:42] LABS: BASOPHILS % (AUTO) 0.2 % (0-1); EOSINOPHILS # (AUTO) 0.1 X10'3 (0-0.9); HEMATOCRIT 38.1 % (35.0-45.0); HEMOGLOBIN 12.4 g/dl (12.0-16.0); LYMPHOCYTES # (AUTO) 1.4 X10'3 (1.1-4.8); LYMPHOCYTES % (AUTO) 13.4 % (21-51); MEAN CORPUSCULAR HEMOGLOBIN 25.6 PG (27.0-31.0); MEAN CORPUSCULAR HGB CONC 32.5 % (33.0-36.5); MEAN CORPUSCULAR VOLUME 78.6 FL (78-98); MEAN PLATELET VOLUME 8.5 FL (7.4-10.4); MONOCYTES # (AUTO) 0.6 X10'3 (0-0.9); MONOCYTES % (AUTO) 5.4 % (2-12); NEUTROPHILS # (AUTO) 8.3 X10'3 (1.8-7.7); PLATELET COUNT 252 X10'3 (140-440); RED BLOOD COUNT 4.85 X10'6 (4.20-5.60); RED CELL DISTRIBUTION WIDTH 21.8 % (11.5-14.5); WHITE BLOOD COUNT 10.3 X10'3 (4.5-11.0)
[2018-02-28 08:58] LABS: PARTIAL THROMBOPLASTIN TIME 53 SECONDS (22-32); PROTHROMBIN TIME 55.3 SECONDS (9.0-12.0)
[2018-02-28 09:00] LABS: CLARITY,URINE CLOUDY (Clear); COLOR,URINE YELLOW (Yellow); GLUCOSE, URINE NEGATIVE (Neg); KETONES,URINE NEGATIVE (Neg); LEUKOCYTE ESTERASE ,URINE NEGATIVE (Neg); NITRITES, URINE NEGATIVE (Neg); OCCULT BLOOD,URINE NEGATIVE (Neg); PROTEIN,URINE 30 mg/dl (Neg)
[2018-02-28 09:01] LABS: UA COLLECTION TYPE STRAIGHT CATH
[2018-02-28 09:07] LABS: INR 5.7 INR
[2018-02-28 09:09] LABS: ALANINE AMINOTRANSFERASE 44 U/L (12-78); ALBUMIN 2.6 G/DL (3.4-5.0); ALBUMIN/GLOBULIN RATIO 0.5 (1.1-1.5); ALKALINE PHOSPHATASE 252 IU/L (46-116); ANION GAP 13 (8-16); ASPARTATE AMINO TRANSFERASE 48 U/L (10-37); BILIRUBIN,TOTAL 1.5 MG/DL (0.1-1.0); BLOOD UREA NITROGEN 28 MG/DL (7-18); BUN/CREATININE RATIO 32.6 (6.6-38.0); CALCIUM 8.4 MG/DL (8.5-10.1); CHLORIDE 100 MMOL/L (99-107); CREATININE 0.86 MG/DL (0.40-0.90); GLUCOSE 190 MG/DL (70-104); PHOSPHORUS 3.9 MG/DL (2.3-4.5); SODIUM 141 MMOL/L (135-145); TOTAL CARBON DIOXIDE 28.3 MMOL/L (24-32); TOTAL PROTEIN 7.4 G/DL (6.4-8.2); eGFR 66 ML/MIN
[2018-02-28 09:11] LABS: MUCUS STRANDS FEW /LPF (Neg); SQUAMOUS EPITHELIAL CELL,UR FEW /LPF (FEW)
[2018-02-28 09:12] LABS: HYALINE CASTS 0-3 /LPF (NEGATIVE)
[2018-02-28 09:13] LABS: AMORPHOUS URATES 2+; TRANSITIONAL EPI CELLS,URINE FEW /HPF
[2018-02-28 09:14] LABS: BACTERIA,URINE FEW /HPF (Neg); RBC,URINE 0-2 /HPF (0-2); WBC,URINE 0-4 /HPF (0-4)
[2018-02-28 09:21] LABS: POTASSIUM 3.6 MMOL/L (3.5-5.1)
[2018-02-28] MEDS ORDERED: normal saline 1000ML IV soln IVB ONE ×2 (09:25)
[2018-02-28] MEDS ORDERED: magnesium 2GM in 50ml NS 50 ML IV ONE (09:25)
[2018-02-28 09:45] LABS: ABG BASE EXCESS -1.2 mmol/L (-2.0-3.0); ABG HCO3 21.2 mmol/L (22.0-26.0); ABG PCO2 (T) 28.9 mmHg (32.0-45.0); ABG PH (T) 7.484 (7.350-7.450); ABG PO2 (T) 88.8 mmHg (83-108); ALLEN'S TEST Positive; FCOHb 1.1 % (0.5-1.5); FLOW 4 L/min; FMetHb 0.2 % (0.3-1.12); FO2Hb 94.8 % (94-100); TOTAL HEMOGLOBIN 12.6 G/dl (12.0-16.0)
[2018-02-28] MEDS ORDERED: methylPREDNISolone sod succ 125mg/2ml vial IV ONE (11:40)
[2018-02-28] MEDS: azithromycin/NS 500mg/250ml 250 ML IV SCH (11:44)
[2018-02-28] MEDS: CefTRIAXone/D5W-Rocephin 1gm 50 ML IV SCH (11:44)
[2018-02-28] MEDS: methylPREDNISolone sod succ 125mg/2ml vial IV SCH ×2 (11:48→21:10)
[2018-02-28 11:56] LABS: URINE AMPHETAMINE SCREEN NEGATIVE (Neg); URINE BARBITUATE SCREEN NEGATIVE (Neg); URINE BENZODIAZEPINES SCREEN NEGATIVE (Neg); URINE CANNABINOID SCREEN NEGATIVE (Neg); URINE COCAINE SCREEN NEGATIVE (Neg); URINE METHADONE SCREEN NEGATIVE (Neg); URINE OPIATE SCREEN POSITIVE (Neg); URINE PHENCYCLIDINE SCREEN NEGATIVE (Neg)
[2018-02-28] MEDS ORDERED: glucagon, human recombinant 1mg kit SUBCUT PRN (12:05)
[2018-02-28] MEDS ORDERED: MESSAGE TO PHARMACY PO ONE (12:05)
[2018-02-28] MEDS ORDERED: dextrose ORAL solution 15 GM/59 ML bottle PO PRN ×2 (12:05)
[2018-02-28] MEDS: gabapentin 100mg capsule PO SCH ×2 (13:35→21:10)
[2018-02-28 15:00] VITALS: BP 113/80
[2018-02-28] MEDS: ipratropium/albuterol 3ml nebule NEB SCH ×3 (15:00→23:22)
[2018-02-28] MEDS ORDERED: dextrose 5%-normal saline 1,000 ML IV SCH (15:50)
[2018-02-28 18:00] VITALS: BP 130/88
[2018-02-28] MEDS ORDERED: methadone 10mg tablet PO SCH (20:00)
[2018-02-28] MEDS: insulin glargine (Lantus) pen - multi-dose SQ SCH (20:24)
[2018-02-28] MEDS ORDERED: magnesium 4gm in 100ml NS 100 ML IV PRN (20:30)
[2018-02-28] MEDS ORDERED: potassium Cl 20 mEq SR tablet PO PRN (20:30)
[2018-02-28] MEDS ORDERED: potassium Cl 40MEQ/NS 500ml 500 ML IV PRN ×2 (20:30)
[2018-02-28] MEDS ORDERED: magnesium 2GM in 50ml NS 50 ML IV PRN (20:30)
[2018-02-28] MEDS: docusate sod 100mg capsule PO SCH (21:10)
[2018-02-28] MEDS: duloxetine 30mg CAPSULE.DR PO SCH (21:10)
[2018-02-28] MEDS: lactobacillus rhamnosus 10,000 MMU CELLS/CAPSULE PO SCH (21:10)
[2018-02-28 22:00] VITALS: BP 121/80
[2018-03-01 02:00] VITALS: BP 112/69
[2018-03-01] MEDS: ipratropium/albuterol 3ml nebule NEB SCH ×6 (03:30→23:44)
[2018-03-01 06:16] LABS: MAGNESIUM 1.2 MG/DL (1.5-2.4); POTASSIUM 3.5 MMOL/L (3.5-5.1)
[2018-03-01 07:00] VITALS: BP 104/66
[2018-03-01] MEDS ORDERED: normal saline 1000ml 1,000 ML IV SCH (07:00)
[2018-03-01 07:07] LABS: BASOPHILS % (AUTO) 0 % (0-1); EOSINOPHILS % (AUTO) 0 % (0-6); HEMATOCRIT 36.3 % (35.0-45.0); HEMOGLOBIN 11.7 g/dl (12.0-16.0); LYMPHOCYTES # (AUTO) 0.8 X10'3 (1.1-4.8); LYMPHOCYTES % (AUTO) 10.6 % (21-51); MEAN CORPUSCULAR HEMOGLOBIN 25.8 PG (27.0-31.0); MEAN CORPUSCULAR HGB CONC 32.3 % (33.0-36.5); MEAN PLATELET VOLUME 9.4 FL (7.4-10.4); MONOCYTES # (AUTO) 0.2 X10'3 (0-0.9); MONOCYTES % (AUTO) 2.8 % (2-12); NEUTROPHILS # (AUTO) 6.1 X10'3 (1.8-7.7); NEUTROPHILS % (AUTO) 86.6 % (42-75); PLATELET COUNT 192 X10'3 (140-440); RED BLOOD COUNT 4.54 X10'6 (4.20-5.60); RED CELL DISTRIBUTION WIDTH 21.3 % (11.5-14.5); WHITE BLOOD COUNT 7.1 X10'3 (4.5-11.0)
[2018-03-01 07:23] LABS: ALANINE AMINOTRANSFERASE 47 U/L (12-78); ALBUMIN 2.4 G/DL (3.4-5.0); ALBUMIN/GLOBULIN RATIO 0.6 (1.1-1.5); ALKALINE PHOSPHATASE 228 IU/L (46-116); ANION GAP 20 (8-16); ASPARTATE AMINO TRANSFERASE 52 U/L (10-37); BILIRUBIN,TOTAL 1.8 MG/DL (0.1-1.0); BLOOD UREA NITROGEN 29 MG/DL (7-18); BUN/CREATININE RATIO 35.4 (6.6-38.0); CALCIUM 8.1 MG/DL (8.5-10.1); CHLORIDE 104 MMOL/L (99-107); CREATININE 0.82 MG/DL (0.40-0.90); GLUCOSE 172 MG/DL (70-104); SODIUM 143 MMOL/L (135-145); TOTAL CARBON DIOXIDE 19.3 MMOL/L (24-32); TOTAL PROTEIN 6.6 G/DL (6.4-8.2); eGFR 70 ML/MIN
[2018-03-01] MEDS: duloxetine 30mg CAPSULE.DR PO SCH ×2 (08:38→19:13)
[2018-03-01] MEDS: amLODIPine 5mg tablet PO SCH (08:39)
[2018-03-01] MEDS: levoTHYROXINE 25mcg tablet PO SCH (08:40)
[2018-03-01] MEDS: losartan 50mg tablet PO SCH (08:40)
[2018-03-01] MEDS: lactobacillus rhamnosus 10,000 MMU CELLS/CAPSULE PO SCH ×2 (08:40→19:13)
[2018-03-01] MEDS: gabapentin 100mg capsule PO SCH ×3 (08:40→21:25)
[2018-03-01] MEDS: methylPREDNISolone sod succ 125mg/2ml vial IV SCH ×3 (08:41→21:25)
[2018-03-01] MEDS: CefTRIAXone/D5W-Rocephin 1gm 50 ML IV SCH (08:41)
[2018-03-01] MEDS: magnesium Cl slow-release 64mg tablet PO PRN ×2 (09:52→17:42)
[2018-03-01] MEDS: potassium Cl 20 mEq SR tablet PO PRN ×3 (09:52→17:42)
[2018-03-01] MEDS: azithromycin/NS 500mg/250ml 250 ML IV SCH (09:54)
[2018-03-01 11:00] VITALS: BP 106/64
[2018-03-01] MEDS: insulin Lispro (HumaLOG) vial - multi-dose SQ SCH ×3 (13:56→21:38)
[2018-03-01 15:00] VITALS: BP 93/61
[2018-03-01 18:00] VITALS: BP 98/67
[2018-03-01 20:29] LABS: INR 3.8 INR; PROTHROMBIN TIME 37.8 SECONDS (9.0-12.0)
[2018-03-01] MEDS: insulin glargine (Lantus) pen - multi-dose SQ SCH (21:00)
[2018-03-01] MEDS: docusate sod 100mg capsule PO SCH (21:25)
[2018-03-01 22:00] VITALS: BP 94/55
[2018-03-02] VITALS (14 sets, daily range): BP systolic 57–149; BP diastolic 12–110
[2018-03-02] MEDS: ipratropium/albuterol 3ml nebule NEB SCH ×6 (03:13→23:03)
[2018-03-02 05:07] LABS: BASOPHILS % (AUTO) 0.1 % (0-1); EOSINOPHILS # (AUTO) 0.1 X10'3 (0-0.9); EOSINOPHILS % (AUTO) 1.1 % (0-6); HEMATOCRIT 39.3 % (35.0-45.0); HEMOGLOBIN 12.5 g/dl (12.0-16.0); LYMPHOCYTES # (AUTO) 0.9 X10'3 (1.1-4.8); LYMPHOCYTES % (AUTO) 9.6 % (21-51); MEAN CORPUSCULAR HEMOGLOBIN 25.3 PG (27.0-31.0); MEAN CORPUSCULAR HGB CONC 31.9 % (33.0-36.5); MEAN CORPUSCULAR VOLUME 79.4 FL (78-98); MEAN PLATELET VOLUME 8.9 FL (7.4-10.4); MONOCYTES # (AUTO) 0.4 X10'3 (0-0.9); MONOCYTES % (AUTO) 4.1 % (2-12); NEUTROPHILS # (AUTO) 7.5 X10'3 (1.8-7.7); NEUTROPHILS % (AUTO) 85.1 % (42-75); PLATELET COUNT 222 X10'3 (140-440); RED BLOOD COUNT 4.95 X10'6 (4.20-5.60); RED CELL DISTRIBUTION WIDTH 22.4 % (11.5-14.5); WHITE BLOOD COUNT 8.8 X10'3 (4.5-11.0)
[2018-03-02 05:22] LABS: PARTIAL THROMBOPLASTIN TIME 47 SECONDS (22-32); PROTHROMBIN TIME 44.3 SECONDS (9.0-12.0)
[2018-03-02 05:26] LABS: INR 4.5 INR
[2018-03-02 05:33] LABS: ALBUMIN 2.5 G/DL (3.4-5.0); ANION GAP 19 (8-16); BLOOD UREA NITROGEN 46 MG/DL (7-18); BUN/CREATININE RATIO 36.8 (6.6-38.0); CALCIUM 8.2 MG/DL (8.5-10.1); CHLORIDE 103 MMOL/L (99-107); CREATININE 1.25 MG/DL (0.40-0.90); GLUCOSE 244 MG/DL (70-104); MAGNESIUM 1.4 MG/DL (1.5-2.4); POTASSIUM 4.5 MMOL/L (3.5-5.1); SODIUM 140 MMOL/L (135-145); eGFR 43 ML/MIN
[2018-03-02] MEDS: amLODIPine 5mg tablet PO SCH (08:00)
[2018-03-02] MEDS: losartan 50mg tablet PO SCH (08:00)
[2018-03-02] MEDS: CefTRIAXone/D5W-Rocephin 1gm 50 ML IV SCH (08:25)
[2018-03-02] MEDS: methylPREDNISolone sod succ 125mg/2ml vial IV SCH ×3 (08:25→22:50)
[2018-03-02] MEDS: duloxetine 30mg CAPSULE.DR PO SCH ×2 (08:30→22:50)
[2018-03-02] MEDS: levoTHYROXINE 25mcg tablet PO SCH (08:30)
[2018-03-02] MEDS: lactobacillus rhamnosus 10,000 MMU CELLS/CAPSULE PO SCH ×2 (08:30→22:50)
[2018-03-02] MEDS: magnesium Cl slow-release 64mg tablet PO PRN (08:30)
[2018-03-02] MEDS: gabapentin 100mg capsule PO SCH ×3 (08:30→22:50)
[2018-03-02] MEDS: insulin Lispro (HumaLOG) vial - multi-dose SQ SCH (08:37)
[2018-03-02] MEDS: azithromycin/NS 500mg/250ml 250 ML IV SCH (10:03)
[2018-03-02] MEDS: methadone 5mg tablet PO SCH ×2 (10:30→22:52)
[2018-03-02] MEDS ORDERED: sodium bicarbonate (8.4%) 1 mEq/ml syringe IV ONE (11:50)
[2018-03-02 11:51] LABS: ABG BASE EXCESS -16.4 mmol/L (-2.0-3.0); ABG HCO3 7.4 mmol/L (22.0-26.0); ABG OXYGEN SATURATION 99.7 % (95-98); ABG PCO2 (T) 15.2 mmHg (32.0-45.0); ABG PH (T) 7.303 (7.350-7.450); ABG PO2 (T) 253.3 mmHg (83-108); FCOHb 0.4 % (0.5-1.5); FMetHb 0.3 % (0.3-1.12)
[2018-03-02 14:07] LABS: CLARITY,URINE CLOUDY (Clear); COLOR,URINE AMBER (Yellow); GLUCOSE, URINE NEGATIVE (Neg); KETONES,URINE NEGATIVE (Neg); LEUKOCYTE ESTERASE ,URINE NEGATIVE (Neg); NITRITES, URINE NEGATIVE (Neg); OCCULT BLOOD,URINE LARGE (Neg); PROTEIN,URINE 30 mg/dl (Neg); UA COLLECTION TYPE FOLEY CATH
[2018-03-02] MEDS ORDERED: normal saline 500ml IV soln 500 ML IV ONE (14:10)
[2018-03-02 14:19] LABS: BACTERIA,URINE FEW /HPF (Neg); RBC,URINE TNTC /HPF (0-2); SQUAMOUS EPITHELIAL CELL,UR FEW /LPF (FEW)
[2018-03-02 14:20] LABS: AMORPHOUS URATES 2+; HYALINE CASTS >30 /LPF (NEGATIVE); MUCUS STRANDS FEW /LPF (Neg); TRANSITIONAL EPI CELLS,URINE FEW /HPF; WBC CASTS 0-3 /LPF (NEGATIVE)
[2018-03-02 15:41] LABS: ABG BASE EXCESS -7.6 mmol/L (-2.0-3.0); ABG HCO3 16.1 mmol/L (22.0-26.0); ABG OXYGEN SATURATION 90.3 % (95-98); ABG PCO2 (T) 27.9 mmHg (32.0-45.0); ABG PH (T) 7.379 (7.350-7.450); ABG PO2 (T) 66.4 mmHg (83-108); ALLEN'S TEST Positive; FCOHb 0.5 % (0.5-1.5); FMetHb 0.3 % (0.3-1.12); FO2Hb 89.6 % (94-100); RESPIRATORY RATE (OBSERVED) 12 b/min; TOTAL HEMOGLOBIN 12.3 G/dl (12.0-16.0)
[2018-03-02 15:45] LABS: BASOPHILS % (AUTO) 0.1 % (0-1); EOSINOPHILS # (AUTO) 0.1 X10'3 (0-0.9); EOSINOPHILS % (AUTO) 1.1 % (0-6); HEMATOCRIT 37.3 % (35.0-45.0); HEMOGLOBIN 11.7 g/dl (12.0-16.0); LYMPHOCYTES % (AUTO) 10.3 % (21-51); MEAN CORPUSCULAR HEMOGLOBIN 25.3 PG (27.0-31.0); MEAN CORPUSCULAR HGB CONC 31.5 % (33.0-36.5); MEAN CORPUSCULAR VOLUME 80.4 FL (78-98); MEAN PLATELET VOLUME 9.1 FL (7.4-10.4); MONOCYTES # (AUTO) 0.5 X10'3 (0-0.9); MONOCYTES % (AUTO) 5.1 % (2-12); NEUTROPHILS # (AUTO) 7.8 X10'3 (1.8-7.7); NEUTROPHILS % (AUTO) 83.4 % (42-75); PLATELET COUNT 192 X10'3 (140-440); RED BLOOD COUNT 4.64 X10'6 (4.20-5.60); WHITE BLOOD COUNT 9.4 X10'3 (4.5-11.0)
[2018-03-02 16:02] LABS: ANION GAP 22 (8-16); BLOOD UREA NITROGEN 51 MG/DL (7-18); BUN/CREATININE RATIO 37.8 (6.6-38.0); CHLORIDE 104 MMOL/L (99-107); CREATININE 1.35 MG/DL (0.40-0.90); GLUCOSE 190 MG/DL (70-104); POTASSIUM 4.4 MMOL/L (3.5-5.1); SODIUM 143 MMOL/L (135-145); TOTAL CARBON DIOXIDE 16.8 MMOL/L (24-32)
[2018-03-02 16:03] LABS: ALANINE AMINOTRANSFERASE 50 U/L (12-78); ALBUMIN 2.3 G/DL (3.4-5.0); ALBUMIN/GLOBULIN RATIO 0.6 (1.1-1.5); ALKALINE PHOSPHATASE 223 IU/L (46-116); ASPARTATE AMINO TRANSFERASE 57 U/L (10-37); BILIRUBIN,TOTAL 1.1 MG/DL (0.1-1.0); CALCIUM 7.9 MG/DL (8.5-10.1); TOTAL PROTEIN 6.4 G/DL (6.4-8.2); eGFR 39 ML/MIN
[2018-03-02 16:08] LABS: TOTAL CELLS COUNTED 100
[2018-03-02 16:10] LABS: ANISOCYTOSIS 3+; BURR CELLS 1+; ELLIPTOCYTES 1+; PLATELET ESTIMATE NORMAL; POLYCHROMASIA 1+
[2018-03-02 16:11] LABS: SCHISTOCYTES FEW; TARGET CELLS FEW
[2018-03-02] MEDS ORDERED: magnesium 4gm in 100ml NS 100 ML IV PRN (16:45)
[2018-03-02] MEDS ORDERED: Neutra Phos packet PO PRN (16:45)
[2018-03-02] MEDS ORDERED: ondansetron/PF 4mg/2ml inj IV PRN (16:45)
[2018-03-02] MEDS ORDERED: magnesium 2GM in 50ml NS 50 ML IV PRN (16:45)
[2018-03-02] MEDS ORDERED: sodium phosphate inj. 15 MMOL in dextrose 5%-water 150 ML IV PRN (16:45)
[2018-03-02] MEDS ORDERED: sodium phosphate inj. 30 MMOL in dextrose 5%-water 250 ML IV PRN (16:45)
[2018-03-02] MEDS ORDERED: vancomycin/NS 1 GM ADD-VANTAGE 250 ML IV ONE (17:25)
[2018-03-02] MEDS: K, MAG and/or Phos replacement - Verify level? MC SCH (18:03)
[2018-03-02] MEDS: pantoprazole 40 MG vial IV SCH (18:14)
[2018-03-02] MEDS ORDERED: normal saline 1000ml 1,000 ML IV ONE (18:40)
[2018-03-02] MEDS: vancomycin/NS 1 GM ADD-VANTAGE 250 ML IV SCH ×2 (19:27→22:51)
[2018-03-02] MEDS: sodium chloride 0.45% 1,000 ML IV SCH (20:05)
[2018-03-02] MEDS: docusate sod 100mg capsule PO SCH (22:50)
[2018-03-02] MEDS ORDERED: insulin glargine (Lantus) pen - multi-dose SQ ONE (23:35)
[2018-03-03] VITALS (23 sets, daily range): BP systolic 67–128; BP diastolic 48–91
[2018-03-03] MEDS: insulin glargine (Lantus) pen - multi-dose SQ SCH ×2 (00:06→21:54)
[2018-03-03] MEDS: ipratropium/albuterol 3ml nebule NEB SCH ×6 (03:23→23:00)
[2018-03-03] MEDS: sodium chloride 0.45% 1,000 ML IV SCH ×4 (04:15→19:55)
[2018-03-03 04:21] LABS: ABG BASE EXCESS -4.5 mmol/L (-2.0-3.0); ABG HCO3 18.4 mmol/L (22.0-26.0); ABG OXYGEN SATURATION 95.9 % (95-98); ABG PCO2 (T) 27.4 mmHg (32.0-45.0); ABG PH (T) 7.443 (7.350-7.450); ABG PO2 (T) 83.3 mmHg (83-108); ALLEN'S TEST Positive; FCOHb 1.3 % (0.5-1.5); FLOW 2 L/min; FO2Hb 94.7 % (94-100); PATIENT TEMPERATURE 36.7; TOTAL HEMOGLOBIN 12.3 G/dl (12.0-16.0)
[2018-03-03 05:22] LABS: BASOPHILS % (AUTO) 0 % (0-1); EOSINOPHILS # (AUTO) 0.1 X10'3 (0-0.9); HEMATOCRIT 37.8 % (35.0-45.0); LYMPHOCYTES # (AUTO) 0.8 X10'3 (1.1-4.8); LYMPHOCYTES % (AUTO) 7.8 % (21-51); MEAN CORPUSCULAR HEMOGLOBIN 25.5 PG (27.0-31.0); MEAN CORPUSCULAR HGB CONC 31.7 % (33.0-36.5); MEAN CORPUSCULAR VOLUME 80.3 FL (78-98); MEAN PLATELET VOLUME 9.1 FL (7.4-10.4); MONOCYTES # (AUTO) 0.4 X10'3 (0-0.9); MONOCYTES % (AUTO) 3.7 % (2-12); NEUTROPHILS # (AUTO) 8.9 X10'3 (1.8-7.7); NEUTROPHILS % (AUTO) 87.5 % (42-75); PLATELET COUNT 181 X10'3 (140-440); RED BLOOD COUNT 4.71 X10'6 (4.20-5.60); RED CELL DISTRIBUTION WIDTH 21.9 % (11.5-14.5); WHITE BLOOD COUNT 10.1 X10'3 (4.5-11.0)
[2018-03-03 05:35] LABS: ALANINE AMINOTRANSFERASE 64 U/L (12-78); ALBUMIN 2.4 G/DL (3.4-5.0); ALBUMIN/GLOBULIN RATIO 0.6 (1.1-1.5); ALKALINE PHOSPHATASE 221 IU/L (46-116); ANION GAP 17 (8-16); ASPARTATE AMINO TRANSFERASE 68 U/L (10-37); BILIRUBIN,TOTAL 1.4 MG/DL (0.1-1.0); BLOOD UREA NITROGEN 47 MG/DL (7-18); BUN/CREATININE RATIO 44.8 (6.6-38.0); CHLORIDE 105 MMOL/L (99-107); CREATININE 1.05 MG/DL (0.40-0.90); GLUCOSE 168 MG/DL (70-104); MAGNESIUM 1.3 MG/DL (1.5-2.4); PHOSPHORUS 3.3 MG/DL (2.3-4.5); SODIUM 141 MMOL/L (135-145); TOTAL PROTEIN 6.6 G/DL (6.4-8.2); eGFR 52 ML/MIN
[2018-03-03 05:39] LABS: PARTIAL THROMBOPLASTIN TIME 45 SECONDS (22-32)
[2018-03-03 05:56] LABS: INR 5.7 INR
[2018-03-03] MEDS: levoTHYROXINE 25mcg tablet PO SCH (07:22)
[2018-03-03] MEDS: duloxetine 30mg CAPSULE.DR PO SCH ×2 (07:22→19:54)
[2018-03-03] MEDS: lactobacillus rhamnosus 10,000 MMU CELLS/CAPSULE PO SCH ×2 (07:22→19:53)
[2018-03-03] MEDS: pantoprazole 40 MG vial IV SCH (07:23)
[2018-03-03] MEDS: methylPREDNISolone sod succ 125mg/2ml vial IV SCH (07:23)
[2018-03-03] MEDS: gabapentin 100mg capsule PO SCH ×3 (07:23→19:53)
[2018-03-03] MEDS: CefTRIAXone/D5W-Rocephin 1gm 50 ML IV SCH (07:23)
[2018-03-03] MEDS: azithromycin/NS 500mg/250ml 250 ML IV SCH (07:24)
[2018-03-03] MEDS: amLODIPine 5mg tablet PO SCH (07:29)
[2018-03-03] MEDS: K, MAG and/or Phos replacement - Verify level? MC SCH (07:30)
[2018-03-03] MEDS: losartan 50mg tablet PO SCH (07:30)
[2018-03-03] MEDS: methadone 5mg tablet PO SCH ×2 (07:53→19:54)
[2018-03-03 10:44] LABS: ALANINE AMINOTRANSFERASE 61 U/L (12-78); ALBUMIN 2.1 G/DL (3.4-5.0); ALBUMIN/GLOBULIN RATIO 0.6 (1.1-1.5); ALKALINE PHOSPHATASE 200 IU/L (46-116); ANION GAP 14 (8-16); ASPARTATE AMINO TRANSFERASE 68 U/L (10-37); BILIRUBIN,TOTAL 1.2 MG/DL (0.1-1.0); BLOOD UREA NITROGEN 47 MG/DL (7-18); BUN/CREATININE RATIO 42.7 (6.6-38.0); CALCIUM 7.5 MG/DL (8.5-10.1); CHLORIDE 105 MMOL/L (99-107); GLUCOSE 197 MG/DL (70-104); POTASSIUM 4.4 MMOL/L (3.5-5.1); SODIUM 139 MMOL/L (135-145); TOTAL CARBON DIOXIDE 19.8 MMOL/L (24-32); TOTAL PROTEIN 5.8 G/DL (6.4-8.2); eGFR 50 ML/MIN
[2018-03-03 10:47] LABS: TROPONIN I 0.26 NG/ML (0.0-0.05)
[2018-03-03 10:52] LABS: ANISOCYTOSIS 2+; PLATELET ESTIMATE NORMAL; TOTAL CELLS COUNTED 100
[2018-03-03 10:53] LABS: ELLIPTOCYTES FEW; POLYCHROMASIA 1+; SCHISTOCYTES FEW; TARGET CELLS FEW
[2018-03-03 11:00] LABS: OXYGEN SATURATION (MIXED VEN) 22.5 % (60-80)
[2018-03-03] MEDS ORDERED: vancomycin/NS 1 GM ADD-VANTAGE 250 ML IV SCH (11:00)
[2018-03-03] MEDS: NORepinephrine 8mg/ 250ml NS 250 ML IV SCH (11:25)
[2018-03-03] MEDS ORDERED: phytonadione inj. 1 MG in normal saline 100ml IV soln 99.9 ML IV ONE (11:50)
[2018-03-03] MEDS: DOBUTamine-DoBUTrex 500mg/D5W 250 ML IV SCH (11:51)
[2018-03-03] MEDS ORDERED: hydrocortisone sod succ/PF 100mg/2ml inj. IV SCH (12:00)
[2018-03-03 12:11] LABS: BASOPHILS % (AUTO) 0.1 % (0-1); EOSINOPHILS # (AUTO) 0.1 X10'3 (0-0.9); EOSINOPHILS % (AUTO) 1.3 % (0-6); HEMATOCRIT 37.6 % (35.0-45.0); HEMOGLOBIN 11.9 g/dl (12.0-16.0); LYMPHOCYTES # (AUTO) 0.8 X10'3 (1.1-4.8); LYMPHOCYTES % (AUTO) 8.2 % (21-51); MEAN CORPUSCULAR HEMOGLOBIN 25.4 PG (27.0-31.0); MEAN CORPUSCULAR HGB CONC 31.7 % (33.0-36.5); MEAN PLATELET VOLUME 8.9 FL (7.4-10.4); MONOCYTES # (AUTO) 0.3 X10'3 (0-0.9); MONOCYTES % (AUTO) 3.6 % (2-12); NEUTROPHILS # (AUTO) 8.3 X10'3 (1.8-7.7); NEUTROPHILS % (AUTO) 86.8 % (42-75); PLATELET COUNT 182 X10'3 (140-440); RED BLOOD COUNT 4.69 X10'6 (4.20-5.60); RED CELL DISTRIBUTION WIDTH 22.6 % (11.5-14.5); WHITE BLOOD COUNT 9.6 X10'3 (4.5-11.0)
[2018-03-03 12:36] LABS: ANION GAP 16 (8-16); BLOOD UREA NITROGEN 49 MG/DL (7-18); BUN/CREATININE RATIO 43.8 (6.6-38.0); CALCIUM 7.6 MG/DL (8.5-10.1); CHLORIDE 105 MMOL/L (99-107); CREATININE 1.12 MG/DL (0.40-0.90); GLUCOSE 152 MG/DL (70-104); MAGNESIUM 1.4 MG/DL (1.5-2.4); PHOSPHORUS 3.9 MG/DL (2.3-4.5); POTASSIUM 4.3 MMOL/L (3.5-5.1); SODIUM 139 MMOL/L (135-145); eGFR 49 ML/MIN
[2018-03-03 12:37] LABS: ALANINE AMINOTRANSFERASE 66 U/L (12-78); ALBUMIN 2.1 G/DL (3.4-5.0); ALBUMIN/GLOBULIN RATIO 0.6 (1.1-1.5); ALKALINE PHOSPHATASE 213 IU/L (46-116); ASPARTATE AMINO TRANSFERASE 77 U/L (10-37); BILIRUBIN,TOTAL 1.4 MG/DL (0.1-1.0); TOTAL PROTEIN 5.9 G/DL (6.4-8.2)
[2018-03-03 12:57] LABS: D-DIMER 1.07 MG/L FEU (0-0.50); PARTIAL THROMBOPLASTIN TIME 47 SECONDS (22-32); PROTHROMBIN TIME 61.8 SECONDS (9.0-12.0)
[2018-03-03 13:00] LABS: INR 6.4 INR
[2018-03-03 13:44] LABS: CLARITY,URINE CLEAR (Clear); COLOR,URINE YELLOW (Yellow); GLUCOSE, URINE NEGATIVE (Neg); KETONES,URINE NEGATIVE (Neg); LEUKOCYTE ESTERASE ,URINE NEGATIVE (Neg); NITRITES, URINE NEGATIVE (Neg); OCCULT BLOOD,URINE SMALL (Neg); PH,URINE 5.5 (4.8-8.0); PROTEIN,URINE TRACE mg/dl (Neg)
[2018-03-03 13:50] LABS: UA COLLECTION TYPE FOLEY CATH
[2018-03-03 13:51] LABS: BACTERIA,URINE NONE SEEN /HPF (Neg); MUCUS STRANDS FEW /LPF (Neg); SQUAMOUS EPITHELIAL CELL,UR FEW /LPF (FEW); WBC,URINE 0-4 /HPF (0-4)
[2018-03-03 13:52] LABS: SODIUM,URINE RANDOM < 15 MEQ/L; TOTAL PROTEIN,URINE RANDOM 38.8 MG/DL
[2018-03-03 14:09] LABS: UA EOSINOPHILS NO EOS /HPF
[2018-03-03 17:30] LABS: ABG BASE EXCESS -5.4 mmol/L (-2.0-3.0); ABG HCO3 18.4 mmol/L (22.0-26.0); ABG OXYGEN SATURATION 97.1 % (95-98); ABG PCO2 (T) 30.4 mmHg (32.0-45.0); ABG PH (T) 7.399 (7.350-7.450); FCOHb 0.5 % (0.5-1.5); FLOW 2 L/min; FMetHb 0.1 % (0.3-1.12); FO2Hb 96.5 % (94-100); TOTAL HEMOGLOBIN 11.8 G/dl (12.0-16.0)
[2018-03-03 17:35] LABS: OXYGEN SATURATION (MIXED VEN) 50.6 % (60-80); PO2 MIXED VENOUS (TEMP COR) 31.1 mmHg (35-46)
[2018-03-03] MEDS: hydrocortisone sod succ/PF 100mg/2ml inj. IV SCH (17:38)
[2018-03-03 17:43] LABS: BASOPHILS % (AUTO) 0.1 % (0-1); EOSINOPHILS # (AUTO) 0.1 X10'3 (0-0.9); EOSINOPHILS % (AUTO) 1.2 % (0-6); HEMATOCRIT 33.8 % (35.0-45.0); HEMOGLOBIN 10.7 g/dl (12.0-16.0); LYMPHOCYTES # (AUTO) 0.6 X10'3 (1.1-4.8); LYMPHOCYTES % (AUTO) 7.2 % (21-51); MEAN CORPUSCULAR HEMOGLOBIN 25.3 PG (27.0-31.0); MEAN CORPUSCULAR HGB CONC 31.8 % (33.0-36.5); MEAN CORPUSCULAR VOLUME 79.8 FL (78-98); MEAN PLATELET VOLUME 9.2 FL (7.4-10.4); MONOCYTES # (AUTO) 0.3 X10'3 (0-0.9); MONOCYTES % (AUTO) 3.2 % (2-12); NEUTROPHILS # (AUTO) 7.3 X10'3 (1.8-7.7); NEUTROPHILS % (AUTO) 88.3 % (42-75); PLATELET COUNT 133 X10'3 (140-440); RED BLOOD COUNT 4.23 X10'6 (4.20-5.60); RED CELL DISTRIBUTION WIDTH 21.8 % (11.5-14.5); WHITE BLOOD COUNT 8.3 X10'3 (4.5-11.0)
[2018-03-03] MEDS ORDERED: vancomycin inj 1,250 MG in normal saline 250ml IV soln 250 ML IV SCH (18:00)
[2018-03-03 18:05] LABS: MAGNESIUM 1.8 MG/DL (1.5-2.4); PHOSPHORUS 3.2 MG/DL (2.3-4.5)
[2018-03-03 18:11] LABS: TROPONIN I 0.26 NG/ML (0.0-0.05)
[2018-03-03] MEDS ORDERED: cefepime 1GM/NS ADD-VANTAGE 100 ML IV SCH (18:25)
[2018-03-03] MEDS: clindamycin 600mg/D5W 50ml 50 ML IV SCH (19:25)
[2018-03-03] MEDS: docusate sod 100mg capsule PO SCH (19:54)
[2018-03-03] MEDS: cefepime inj. 1 GM in dextrose 5%-water 50ml 50 ML IV SCH (20:36)
[2018-03-03] MEDS: fluconazole-Diflucan 200mg/NS 100 ML IV SCH (21:10)
[2018-03-03] MEDS: insulin Lispro (HumaLOG) vial - multi-dose SQ SCH (21:55)
[2018-03-03 23:09] LABS: BASOPHILS % (AUTO) 0.1 % (0-1); EOSINOPHILS # (AUTO) 0.1 X10'3 (0-0.9); EOSINOPHILS % (AUTO) 1.1 % (0-6); HEMATOCRIT 31.6 % (35.0-45.0); HEMOGLOBIN 10.3 g/dl (12.0-16.0); LYMPHOCYTES # (AUTO) 0.4 X10'3 (1.1-4.8); LYMPHOCYTES % (AUTO) 6.3 % (21-51); MEAN CORPUSCULAR HEMOGLOBIN 25.5 PG (27.0-31.0); MEAN CORPUSCULAR HGB CONC 32.4 % (33.0-36.5); MEAN CORPUSCULAR VOLUME 78.6 FL (78-98); MEAN PLATELET VOLUME 8.9 FL (7.4-10.4); MONOCYTES # (AUTO) 0.2 X10'3 (0-0.9); MONOCYTES % (AUTO) 2.3 % (2-12); NEUTROPHILS # (AUTO) 6.2 X10'3 (1.8-7.7); NEUTROPHILS % (AUTO) 90.2 % (42-75); PLATELET COUNT 129 X10'3 (140-440); RED BLOOD COUNT 4.03 X10'6 (4.20-5.60); RED CELL DISTRIBUTION WIDTH 21.8 % (11.5-14.5); WHITE BLOOD COUNT 6.9 X10'3 (4.5-11.0)
[2018-03-03 23:20] LABS: INR 2.9 INR; PARTIAL THROMBOPLASTIN TIME 45 SECONDS (22-32); PROTHROMBIN TIME 28.8 SECONDS (9.0-12.0)
[2018-03-03 23:27] LABS: MAGNESIUM 1.6 MG/DL (1.5-2.4)
[2018-03-03 23:37] LABS: TROPONIN I 0.22 NG/ML (0.0-0.05)
[2018-03-04] VITALS (24 sets, daily range): BP systolic 101–130; BP diastolic 59–80
[2018-03-04] MEDS: hydrocortisone sod succ/PF 100mg/2ml inj. IV SCH ×4 (00:09→17:40)
[2018-03-04] MEDS: ipratropium/albuterol 3ml nebule NEB SCH ×5 (03:00→20:57)
[2018-03-04] MEDS: clindamycin 600mg/D5W 50ml 50 ML IV SCH ×4 (03:15→19:48)
[2018-03-04] MEDS: DOBUTamine-DoBUTrex 500mg/D5W 250 ML IV SCH (04:12)
[2018-03-04 06:13] LABS: MAGNESIUM 1.4 MG/DL (1.5-2.4); PHOSPHORUS 2.9 MG/DL (2.3-4.5)
[2018-03-04 06:49] LABS: BASOPHILS % (AUTO) 0 % (0-1); EOSINOPHILS # (AUTO) 0.1 X10'3 (0-0.9); EOSINOPHILS % (AUTO) 1.6 % (0-6); HEMATOCRIT 32.2 % (35.0-45.0); HEMOGLOBIN 10.3 g/dl (12.0-16.0); LYMPHOCYTES # (AUTO) 0.4 X10'3 (1.1-4.8); LYMPHOCYTES % (AUTO) 5.5 % (21-51); MEAN CORPUSCULAR HEMOGLOBIN 25.7 PG (27.0-31.0); MEAN CORPUSCULAR HGB CONC 31.9 % (33.0-36.5); MEAN CORPUSCULAR VOLUME 80.6 FL (78-98); MEAN PLATELET VOLUME 9.3 FL (7.4-10.4); MONOCYTES # (AUTO) 0.3 X10'3 (0-0.9); MONOCYTES % (AUTO) 4.5 % (2-12); NEUTROPHILS # (AUTO) 6.3 X10'3 (1.8-7.7); NEUTROPHILS % (AUTO) 88.4 % (42-75); PLATELET COUNT 116 X10'3 (140-440); RED BLOOD COUNT 3.99 X10'6 (4.20-5.60); WHITE BLOOD COUNT 7.1 X10'3 (4.5-11.0)
[2018-03-04 07:53] LABS: ALANINE AMINOTRANSFERASE 66 U/L (12-78); ALBUMIN/GLOBULIN RATIO 0.6 (1.1-1.5); ALKALINE PHOSPHATASE 178 IU/L (46-116); ANION GAP 11 (8-16); ASPARTATE AMINO TRANSFERASE 66 U/L (10-37); BILIRUBIN,TOTAL 0.9 MG/DL (0.1-1.0); BLOOD UREA NITROGEN 41 MG/DL (7-18); BUN/CREATININE RATIO 47.1 (6.6-38.0); CALCIUM 7.7 MG/DL (8.5-10.1); CHLORIDE 106 MMOL/L (99-107); CREATININE 0.87 MG/DL (0.40-0.90); GLUCOSE 135 MG/DL (70-104); POTASSIUM 3.4 MMOL/L (3.5-5.1); SODIUM 140 MMOL/L (135-145); TOTAL CARBON DIOXIDE 22.6 MMOL/L (24-32); TOTAL PROTEIN 5.3 G/DL (6.4-8.2); eGFR 65 ML/MIN
[2018-03-04] MEDS: K, MAG and/or Phos replacement - Verify level? MC SCH (08:00)
[2018-03-04] MEDS: losartan 50mg tablet PO SCH (08:00)
[2018-03-04] MEDS: amLODIPine 5mg tablet PO SCH (08:00)
[2018-03-04 08:01] LABS: INR 2.3 INR; PARTIAL THROMBOPLASTIN TIME 43 SECONDS (22-32); PROTHROMBIN TIME 22.3 SECONDS (9.0-12.0)
[2018-03-04] MEDS: gabapentin 100mg capsule PO SCH ×3 (08:22→19:49)
[2018-03-04] MEDS: levoTHYROXINE 25mcg tablet PO SCH (08:22)
[2018-03-04] MEDS: cefepime inj. 1 GM in dextrose 5%-water 50ml 50 ML IV SCH ×2 (08:23→19:47)
[2018-03-04] MEDS: duloxetine 30mg CAPSULE.DR PO SCH ×2 (08:23→19:48)
[2018-03-04] MEDS: lactobacillus rhamnosus 10,000 MMU CELLS/CAPSULE PO SCH ×2 (08:23→19:49)
[2018-03-04] MEDS: pantoprazole 40 MG vial IV SCH (08:23)
[2018-03-04] MEDS: methadone 5mg tablet PO SCH ×2 (09:06→19:49)
[2018-03-04] MEDS: insulin Lispro (HumaLOG) vial - multi-dose SQ SCH (09:10)
[2018-03-04] MEDS ORDERED: potassium Cl 40MEQ/NS 500ml 500 ML IV PRN (09:15)
[2018-03-04] MEDS ORDERED: magnesium 4gm in 100ml NS 100 ML IV PRN (09:15)
[2018-03-04] MEDS: sodium chloride 0.45% 1,000 ML IV SCH ×3 (09:23→18:01)
[2018-03-04] MEDS: potassium Cl 20 mEq SR tablet PO PRN ×2 (09:40→19:48)
[2018-03-04] MEDS: magnesium Cl slow-release 64mg tablet PO PRN ×2 (09:40→19:49)
[2018-03-04] MEDS: fluconazole-Diflucan 200mg/NS 100 ML IV SCH (10:36)
[2018-03-04] MEDS ORDERED: heparin 10,000 units/1 ML INJ IV PRN (16:55)
[2018-03-04] MEDS ORDERED: heparin 10,000 units/1 ML INJ IV ONE (16:55)
[2018-03-04] MEDS: docusate sod 100mg capsule PO SCH (19:49)
[2018-03-04] MEDS: insulin glargine (Lantus) pen - multi-dose SQ SCH (20:33)
[2018-03-04] MEDS ORDERED: warfarin 2.5mg tablet PO ONE (21:00)
[2018-03-04] MEDS ORDERED: VANCOMYCIN LEVEL IV ONE (22:30)
[2018-03-04 23:13] LABS: BASOPHILS % (AUTO) 0 % (0-1); EOSINOPHILS # (AUTO) 0.1 X10'3 (0-0.9); EOSINOPHILS % (AUTO) 1.2 % (0-6); HEMATOCRIT 30.5 % (35.0-45.0); LYMPHOCYTES # (AUTO) 0.4 X10'3 (1.1-4.8); LYMPHOCYTES % (AUTO) 6.9 % (21-51); MEAN CORPUSCULAR HEMOGLOBIN 25.5 PG (27.0-31.0); MEAN CORPUSCULAR HGB CONC 32.7 % (33.0-36.5); MEAN CORPUSCULAR VOLUME 77.9 FL (78-98); MEAN PLATELET VOLUME 8.7 FL (7.4-10.4); MONOCYTES # (AUTO) 0.3 X10'3 (0-0.9); MONOCYTES % (AUTO) 4.2 % (2-12); NEUTROPHILS # (AUTO) 5.5 X10'3 (1.8-7.7); NEUTROPHILS % (AUTO) 87.7 % (42-75); PLATELET COUNT 106 X10'3 (140-440); RED BLOOD COUNT 3.92 X10'6 (4.20-5.60); RED CELL DISTRIBUTION WIDTH 21.3 % (11.5-14.5); WHITE BLOOD COUNT 6.3 X10'3 (4.5-11.0)
[2018-03-04 23:26] LABS: MAGNESIUM 1.1 MG/DL (1.5-2.4); PHOSPHORUS 3.2 MG/DL (2.3-4.5)
[2018-03-04 23:52] LABS: INR 2.6 INR; PROTHROMBIN TIME 25.6 SECONDS (9.0-12.0)
[2018-03-05] VITALS (24 sets, daily range): BP systolic 91–128; BP diastolic 53–91
[2018-03-05] MEDS: hydrocortisone sod succ/PF 100mg/2ml inj. IV SCH ×4 (00:03→17:55)
[2018-03-05] MEDS: magnesium 2GM in 50ml NS 50 ML IV PRN ×2 (00:03→20:59)
[2018-03-05] MEDS: clindamycin 600mg/D5W 50ml 50 ML IV SCH ×4 (01:47→20:26)
[2018-03-05] MEDS: ipratropium/albuterol 3ml nebule NEB SCH ×4 (03:37→21:43)
[2018-03-05] MEDS: sodium chloride 0.45% 1,000 ML IV SCH (04:08)
[2018-03-05 04:41] LABS: INR 2.3 INR
[2018-03-05 05:43] LABS: BASOPHILS % (AUTO) 0.2 % (0-1); EOSINOPHILS % (AUTO) 0 % (0-6); HEMATOCRIT 31.6 % (35.0-45.0); HEMOGLOBIN 10.2 g/dl (12.0-16.0); LYMPHOCYTES # (AUTO) 0.5 X10'3 (1.1-4.8); LYMPHOCYTES % (AUTO) 5.9 % (21-51); MEAN CORPUSCULAR HEMOGLOBIN 25.6 PG (27.0-31.0); MEAN CORPUSCULAR HGB CONC 32.4 % (33.0-36.5); MEAN CORPUSCULAR VOLUME 79.1 FL (78-98); MEAN PLATELET VOLUME 9.2 FL (7.4-10.4); MONOCYTES # (AUTO) 0.3 X10'3 (0-0.9); NEUTROPHILS % (AUTO) 89.9 % (42-75); PLATELET COUNT 112 X10'3 (140-440); RED BLOOD COUNT 3.99 X10'6 (4.20-5.60); RED CELL DISTRIBUTION WIDTH 21.6 % (11.5-14.5); WHITE BLOOD COUNT 7.8 X10'3 (4.5-11.0)
[2018-03-05 06:02] LABS: ANION GAP 11 (8-16); BILIRUBIN,TOTAL 0.9 MG/DL (0.1-1.0); BLOOD UREA NITROGEN 34 MG/DL (7-18); CALCIUM 7.6 MG/DL (8.5-10.1); CHLORIDE 103 MMOL/L (99-107); CREATININE 0.81 MG/DL (0.40-0.90); GLUCOSE 118 MG/DL (70-104); MAGNESIUM 1.5 MG/DL (1.5-2.4); PHOSPHORUS 3.2 MG/DL (2.3-4.5); SODIUM 138 MMOL/L (135-145); TOTAL CARBON DIOXIDE 23.7 MMOL/L (24-32); eGFR 71 ML/MIN
[2018-03-05 06:03] LABS: ALANINE AMINOTRANSFERASE 70 U/L (12-78); ALBUMIN 2.2 G/DL (3.4-5.0); ALBUMIN/GLOBULIN RATIO 0.6 (1.1-1.5); ALKALINE PHOSPHATASE 201 IU/L (46-116); ASPARTATE AMINO TRANSFERASE 66 U/L (10-37); TOTAL PROTEIN 5.8 G/DL (6.4-8.2)
[2018-03-05] MEDS: cefepime inj. 1 GM in dextrose 5%-water 50ml 50 ML IV SCH ×2 (07:14→20:26)
[2018-03-05] MEDS: potassium Cl 20 mEq SR tablet PO PRN ×3 (07:16→12:05)
[2018-03-05] MEDS: pantoprazole 40 MG vial IV SCH (07:16)
[2018-03-05] MEDS: duloxetine 30mg CAPSULE.DR PO SCH ×2 (07:17→20:28)
[2018-03-05] MEDS: methadone 5mg tablet PO SCH ×2 (07:17→20:28)
[2018-03-05] MEDS: levoTHYROXINE 25mcg tablet PO SCH (07:17)
[2018-03-05] MEDS: lactobacillus rhamnosus 10,000 MMU CELLS/CAPSULE PO SCH ×2 (07:17→20:28)
[2018-03-05] MEDS: gabapentin 100mg capsule PO SCH ×3 (07:17→20:28)
[2018-03-05] MEDS: K, MAG and/or Phos replacement - Verify level? MC SCH (07:18)
[2018-03-05] MEDS: metoprolol succinate 25mg (24-HOUR) SR. Tablet PO SCH (07:25)
[2018-03-05] MEDS: insulin Lispro (HumaLOG) vial - multi-dose SQ SCH ×2 (08:35→13:19)
[2018-03-05] MEDS: fluconazole-Diflucan 200mg/NS 100 ML IV SCH (09:38)
[2018-03-05] MEDS: NORepinephrine 8mg/ 250ml NS 250 ML IV SCH (09:46)
[2018-03-05] MEDS: potassium Cl 40MEQ/NS 500ml 500 ML IV PRN (10:57)
[2018-03-05] MEDS: DOBUTamine-DoBUTrex 500mg/D5W 250 ML IV SCH (11:10)
[2018-03-05] MEDS: spironolactone 25 MG tablet PO SCH ×2 (12:04→20:28)
[2018-03-05] MEDS: docusate sod 100mg capsule PO SCH (20:28)
[2018-03-05] MEDS: insulin glargine (Lantus) pen - multi-dose SQ SCH (20:42)
[2018-03-05 20:51] LABS: MAGNESIUM 1.4 MG/DL (1.5-2.4); POTASSIUM 4.3 MMOL/L (3.5-5.1)
[2018-03-05] MEDS ORDERED: losartan 25mg tablet PO SCH (21:00)
[2018-03-05] MEDS ORDERED: warfarin 2.5mg tablet PO ONE (21:00)
[2018-03-06] VITALS (27 sets, daily range): BP systolic 50–111; BP diastolic 16–86
[2018-03-06] MEDS: hydrocortisone sod succ/PF 100mg/2ml inj. IV SCH ×4 (00:14→21:24)
[2018-03-06] MEDS: clindamycin 600mg/D5W 50ml 50 ML IV SCH ×2 (02:21→07:53)
[2018-03-06 02:59] LABS: BASOPHILS % (AUTO) 0.3 % (0-1); EOSINOPHILS % (AUTO) 0.7 % (0-6); HEMOGLOBIN 10.2 g/dl (12.0-16.0); LYMPHOCYTES # (AUTO) 0.4 X10'3 (1.1-4.8); LYMPHOCYTES % (AUTO) 6.9 % (21-51); MEAN CORPUSCULAR HEMOGLOBIN 25.3 PG (27.0-31.0); MEAN CORPUSCULAR HGB CONC 31.9 % (33.0-36.5); MEAN CORPUSCULAR VOLUME 79.1 FL (78-98); MEAN PLATELET VOLUME 8.9 FL (7.4-10.4); MONOCYTES # (AUTO) 0.2 X10'3 (0-0.9); MONOCYTES % (AUTO) 3.7 % (2-12); NEUTROPHILS # (AUTO) 5.7 X10'3 (1.8-7.7); NEUTROPHILS % (AUTO) 88.4 % (42-75); PLATELET COUNT 102 X10'3 (140-440); RED BLOOD COUNT 4.05 X10'6 (4.20-5.60); RED CELL DISTRIBUTION WIDTH 21.5 % (11.5-14.5); WHITE BLOOD COUNT 6.5 X10'3 (4.5-11.0)
[2018-03-06] MEDS: ipratropium/albuterol 3ml nebule NEB SCH ×4 (03:00→20:12)
[2018-03-06 03:11] LABS: INR 2.5 INR; PARTIAL THROMBOPLASTIN TIME 44 SECONDS (22-32); PROTHROMBIN TIME 25.2 SECONDS (9.0-12.0)
[2018-03-06 03:17] LABS: ALANINE AMINOTRANSFERASE 62 U/L (12-78); ALBUMIN 2.4 G/DL (3.4-5.0); ALBUMIN/GLOBULIN RATIO 0.7 (1.1-1.5); ALKALINE PHOSPHATASE 191 IU/L (46-116); ANION GAP 9 (8-16); ASPARTATE AMINO TRANSFERASE 46 U/L (10-37); BILIRUBIN,TOTAL 1.1 MG/DL (0.1-1.0); BLOOD UREA NITROGEN 32 MG/DL (7-18); BUN/CREATININE RATIO 37.6 (6.6-38.0); CALCIUM 8.2 MG/DL (8.5-10.1); CHLORIDE 103 MMOL/L (99-107); CREATININE 0.85 MG/DL (0.40-0.90); GLUCOSE 163 MG/DL (70-104); PHOSPHORUS 3.5 MG/DL (2.3-4.5); POTASSIUM 3.9 MMOL/L (3.5-5.1); SODIUM 137 MMOL/L (135-145); TOTAL CARBON DIOXIDE 25.1 MMOL/L (24-32); eGFR 67 ML/MIN
[2018-03-06 03:40] LABS: MAGNESIUM 1.8 MG/DL (1.5-2.4)
[2018-03-06] MEDS: K, MAG and/or Phos replacement - Verify level? MC SCH (06:43)
[2018-03-06] MEDS: cefepime inj. 1 GM in dextrose 5%-water 50ml 50 ML IV SCH ×2 (07:44→16:33)
[2018-03-06] MEDS: gabapentin 100mg capsule PO SCH ×2 (07:46→12:36)
[2018-03-06] MEDS: duloxetine 30mg CAPSULE.DR PO SCH ×2 (07:46→21:24)
[2018-03-06] MEDS: metoprolol succinate 25mg (24-HOUR) SR. Tablet PO SCH (07:46)
[2018-03-06] MEDS: methadone 5mg tablet PO SCH ×2 (07:46→21:24)
[2018-03-06] MEDS: multivitamins, therapeutics tablet PO SCH (07:49)
[2018-03-06] MEDS: levoTHYROXINE 25mcg tablet PO SCH (07:49)
[2018-03-06] MEDS: lactobacillus rhamnosus 10,000 MMU CELLS/CAPSULE PO SCH ×2 (07:49→21:24)
[2018-03-06] MEDS: pantoprazole 40 MG vial IV SCH (07:53)
[2018-03-06] MEDS ORDERED: spironolactone 25 MG tablet PO SCH (08:30)
[2018-03-06] MEDS: fluconazole-Diflucan 200mg/NS 100 ML IV SCH (09:20)
[2018-03-06] MEDS: insulin Lispro (HumaLOG) vial - multi-dose SQ SCH (09:27)
[2018-03-06] MEDS ORDERED: DOBUTamine-DoBUTrex 500mg/D5W 250 ML IV SCH ×2 (11:10)
[2018-03-06] MEDS ORDERED: vancomycin/NS 1 GM ADD-VANTAGE 250 ML IV SCH ×2 (12:05→17:45)
[2018-03-06] MEDS ORDERED: metroNIDAZOLE-Flagyl 500mg/NS 100 ML IV SCH (16:00)
[2018-03-06 16:41] LABS: ABG BASE EXCESS -6.6 mmol/L (-2.0-3.0); ABG HCO3 18.6 mmol/L (22.0-26.0); ABG OXYGEN SATURATION 92.4 % (95-98); ABG PH (T) 7.341 (7.350-7.450); ABG PO2 (T) 70.2 mmHg (83-108); ALLEN'S TEST Positive; FCOHb 0.6 % (0.5-1.5); FLOW 2 L/min; FMetHb 0.1 % (0.3-1.12); FO2Hb 91.8 % (94-100); PATIENT TEMPERATURE 36.3; TOTAL HEMOGLOBIN 11.7 G/dl (12.0-16.0)
[2018-03-06 17:45] LABS: PO2 MIXED VENOUS (TEMP COR) 17.6 mmHg (35-46)
[2018-03-06] MEDS: dextrose 50%-water 50ml dispensing syringe IV PRN (17:47)
[2018-03-06] MEDS ORDERED: hydrocortisone sod succ/PF 100mg/2ml inj. IV SCH (18:00)
[2018-03-06] MEDS ORDERED: NORepinephrine 8mg/ 250ml NS 250 ML IV SCH (18:15)
[2018-03-06] MEDS ORDERED: NORepinephrine 8mg/ 250ml NS 250 ML IV ONE (18:18)
[2018-03-06] MEDS ORDERED: losartan 25mg tablet PO SCH (21:00)
[2018-03-06] MEDS ORDERED: warfarin 2.5mg tablet PO ONE (21:00)
[2018-03-06] MEDS: docusate sod 100mg capsule PO SCH (21:25)
[2018-03-06 21:26] LABS: OXYGEN SATURATION (MIXED VEN) 21.4 % (60-80); PO2 MIXED VENOUS (TEMP COR) 18.1 mmHg (35-46)
[2018-03-06] MEDS: insulin glargine (Lantus) pen - multi-dose SQ SCH (21:33)
[2018-03-07] VITALS (23 sets, daily range): BP systolic 94–119; BP diastolic 60–95
[2018-03-07] MEDS: cefepime inj. 1 GM in dextrose 5%-water 50ml 50 ML IV SCH ×3 (01:12→15:56)
[2018-03-07] MEDS: hydrocortisone sod succ/PF 100mg/2ml inj. IV SCH ×4 (01:58→20:33)
[2018-03-07] MEDS: ipratropium/albuterol 3ml nebule NEB SCH ×4 (03:20→20:28)
[2018-03-07 04:15] LABS: BASOPHILS % (AUTO) 0 % (0-1); EOSINOPHILS # (AUTO) 0.1 X10'3 (0-0.9); EOSINOPHILS % (AUTO) 0.7 % (0-6); HEMATOCRIT 35.7 % (35.0-45.0); HEMOGLOBIN 11.5 g/dl (12.0-16.0); LYMPHOCYTES # (AUTO) 0.7 X10'3 (1.1-4.8); LYMPHOCYTES % (AUTO) 4.7 % (21-51); MEAN CORPUSCULAR HEMOGLOBIN 25.6 PG (27.0-31.0); MEAN CORPUSCULAR HGB CONC 32.3 % (33.0-36.5); MEAN CORPUSCULAR VOLUME 79.4 FL (78-98); MEAN PLATELET VOLUME 9.6 FL (7.4-10.4); MONOCYTES # (AUTO) 0.6 X10'3 (0-0.9); MONOCYTES % (AUTO) 4.3 % (2-12); NEUTROPHILS # (AUTO) 12.6 X10'3 (1.8-7.7); NEUTROPHILS % (AUTO) 90.3 % (42-75); PLATELET COUNT 133 X10'3 (140-440); RED BLOOD COUNT 4.49 X10'6 (4.20-5.60); RED CELL DISTRIBUTION WIDTH 22.3 % (11.5-14.5)
[2018-03-07 04:29] LABS: ALANINE AMINOTRANSFERASE 77 U/L (12-78); ALBUMIN 2.4 G/DL (3.4-5.0); ALBUMIN/GLOBULIN RATIO 0.6 (1.1-1.5); ALKALINE PHOSPHATASE 233 IU/L (46-116); ANION GAP 13 (8-16); ASPARTATE AMINO TRANSFERASE 78 U/L (10-37); BILIRUBIN,TOTAL 1.6 MG/DL (0.1-1.0); BLOOD UREA NITROGEN 38 MG/DL (7-18); BUN/CREATININE RATIO 38.8 (6.6-38.0); CALCIUM 8.9 MG/DL (8.5-10.1); CHLORIDE 104 MMOL/L (99-107); CREATININE 0.98 MG/DL (0.40-0.90); PHOSPHORUS 4.5 MG/DL (2.3-4.5); POTASSIUM 3.9 MMOL/L (3.5-5.1); SODIUM 139 MMOL/L (135-145); TOTAL CARBON DIOXIDE 21.7 MMOL/L (24-32); TOTAL PROTEIN 6.3 G/DL (6.4-8.2); eGFR 57 ML/MIN
[2018-03-07 04:30] LABS: PROTHROMBIN TIME 57.3 SECONDS (9.0-12.0)
[2018-03-07 04:36] LABS: INR 5.9 INR
[2018-03-07 04:37] LABS: GLUCOSE 19 MG/DL (70-104)
[2018-03-07] MEDS: dextrose 50%-water 50ml dispensing syringe IV PRN ×3 (04:42→12:08)
[2018-03-07] MEDS: K, MAG and/or Phos replacement - Verify level? MC SCH (06:52)
[2018-03-07] MEDS ORDERED: vancomycin/NS 1 GM ADD-VANTAGE 250 ML IV SCH (07:00)
[2018-03-07] MEDS ORDERED: DOBUTamine-DoBUTrex 500mg/D5W 250 ML IV ONE (07:46)
[2018-03-07] MEDS: DOBUTamine-DoBUTrex 500mg/D5W 250 ML IV SCH (07:51)
[2018-03-07] MEDS ORDERED: metoprolol succinate 25mg (24-HOUR) SR. Tablet PO SCH (08:00)
[2018-03-07] MEDS ORDERED: fluconazole 100mg tablet PO SCH (08:00)
[2018-03-07] MEDS: spironolactone 25 MG tablet PO SCH (08:30)
[2018-03-07] MEDS: duloxetine 30mg CAPSULE.DR PO SCH ×2 (08:41→20:34)
[2018-03-07] MEDS: methadone 5mg tablet PO SCH ×2 (08:41→20:34)
[2018-03-07] MEDS: lactobacillus rhamnosus 10,000 MMU CELLS/CAPSULE PO SCH ×2 (08:41→20:34)
[2018-03-07] MEDS: multivitamins, therapeutics tablet PO SCH (08:41)
[2018-03-07] MEDS: levoTHYROXINE 25mcg tablet PO SCH (08:41)
[2018-03-07] MEDS: pantoprazole 40mg Tablet.DR PO SCH (08:42)
[2018-03-07 11:40] LABS: PROTHROMBIN TIME 68.3 SECONDS (9.0-12.0)
[2018-03-07 11:46] LABS: INR 7.1 INR
[2018-03-07 11:51] LABS: ALANINE AMINOTRANSFERASE 75 U/L (12-78); ALBUMIN 2.3 G/DL (3.4-5.0); ALBUMIN/GLOBULIN RATIO 0.7 (1.1-1.5); ALKALINE PHOSPHATASE 212 IU/L (46-116); ANION GAP 13 (8-16); ASPARTATE AMINO TRANSFERASE 76 U/L (10-37); BILIRUBIN,TOTAL 1.5 MG/DL (0.1-1.0); BLOOD UREA NITROGEN 37 MG/DL (7-18); BUN/CREATININE RATIO 37.8 (6.6-38.0); CALCIUM 8.6 MG/DL (8.5-10.1); CHLORIDE 105 MMOL/L (99-107); CREATININE 0.98 MG/DL (0.40-0.90); GLUCOSE 56 MG/DL (70-104); POTASSIUM 3.9 MMOL/L (3.5-5.1); SODIUM 140 MMOL/L (135-145); TOTAL CARBON DIOXIDE 21.7 MMOL/L (24-32); TOTAL PROTEIN 5.8 G/DL (6.4-8.2); eGFR 57 ML/MIN
[2018-03-07] MEDS: insulin glargine (Lantus) pen - multi-dose SQ SCH (20:34)
[2018-03-07] MEDS: vancomycin/NS 1 GM ADD-VANTAGE 250 ML IV SCH (20:34)
[2018-03-07] MEDS: docusate sod 100mg capsule PO SCH (20:34)
[2018-03-08] VITALS (23 sets, daily range): BP systolic 94–132; BP diastolic 53–86
[2018-03-08] MEDS: cefepime inj. 1 GM in dextrose 5%-water 50ml 50 ML IV SCH ×3 (00:15→16:18)
[2018-03-08] MEDS: hydrocortisone sod succ/PF 100mg/2ml inj. IV SCH ×4 (02:30→19:41)
[2018-03-08] MEDS: ipratropium/albuterol 3ml nebule NEB SCH ×4 (03:03→20:43)
[2018-03-08 03:48] LABS: BASOPHILS % (AUTO) 0.1 % (0-1); EOSINOPHILS # (AUTO) 0.2 X10'3 (0-0.9); EOSINOPHILS % (AUTO) 1.6 % (0-6); HEMATOCRIT 31.5 % (35.0-45.0); HEMOGLOBIN 10.3 g/dl (12.0-16.0); LYMPHOCYTES # (AUTO) 0.4 X10'3 (1.1-4.8); LYMPHOCYTES % (AUTO) 3.7 % (21-51); MEAN CORPUSCULAR HEMOGLOBIN 25.6 PG (27.0-31.0); MEAN CORPUSCULAR HGB CONC 32.6 % (33.0-36.5); MEAN CORPUSCULAR VOLUME 78.7 FL (78-98); MEAN PLATELET VOLUME 9.8 FL (7.4-10.4); MONOCYTES # (AUTO) 0.4 X10'3 (0-0.9); MONOCYTES % (AUTO) 3.6 % (2-12); NEUTROPHILS # (AUTO) 10.9 X10'3 (1.8-7.7); PLATELET COUNT 103 X10'3 (140-440)
[2018-03-08 03:59] LABS: PROTHROMBIN TIME 42.7 SECONDS (9.0-12.0)
[2018-03-08 04:04] LABS: ALANINE AMINOTRANSFERASE 65 U/L (12-78); ALBUMIN 2.3 G/DL (3.4-5.0); ALBUMIN/GLOBULIN RATIO 0.7 (1.1-1.5); ALKALINE PHOSPHATASE 196 IU/L (46-116); ANION GAP 11 (8-16); ASPARTATE AMINO TRANSFERASE 65 U/L (10-37); BILIRUBIN,TOTAL 1.5 MG/DL (0.1-1.0); BLOOD UREA NITROGEN 34 MG/DL (7-18); BUN/CREATININE RATIO 38.2 (6.6-38.0); CALCIUM 8.6 MG/DL (8.5-10.1); CHLORIDE 106 MMOL/L (99-107); CREATININE 0.89 MG/DL (0.40-0.90); GLUCOSE 90 MG/DL (70-104); PHOSPHORUS 3.5 MG/DL (2.3-4.5); POTASSIUM 3.1 MMOL/L (3.5-5.1); SODIUM 141 MMOL/L (135-145); TOTAL CARBON DIOXIDE 24.4 MMOL/L (24-32); TOTAL PROTEIN 5.7 G/DL (6.4-8.2); eGFR 63 ML/MIN
[2018-03-08 04:07] LABS: INR 4.3 INR
[2018-03-08] MEDS: K, MAG and/or Phos replacement - Verify level? MC SCH (07:13)
[2018-03-08] MEDS: DOBUTamine-DoBUTrex 500mg/D5W 250 ML IV SCH (07:25)
[2018-03-08] MEDS: methadone 5mg tablet PO SCH ×3 (07:26→20:00)
[2018-03-08] MEDS: lactobacillus rhamnosus 10,000 MMU CELLS/CAPSULE PO SCH ×2 (07:26→19:40)
[2018-03-08] MEDS: multivitamins, therapeutics tablet PO SCH (07:26)
[2018-03-08] MEDS: duloxetine 30mg CAPSULE.DR PO SCH ×3 (07:26→20:00)
[2018-03-08] MEDS: pantoprazole 40mg Tablet.DR PO SCH (07:26)
[2018-03-08] MEDS: levoTHYROXINE 25mcg tablet PO SCH (07:26)
[2018-03-08] MEDS: spironolactone 25 MG tablet PO SCH (07:34)
[2018-03-08] MEDS: potassium Cl 40MEQ/NS 500ml 500 ML IV PRN (08:21)
[2018-03-08] MEDS ORDERED: VANCOMYCIN LEVEL IV ONE (08:30)
[2018-03-08] MEDS: vancomycin/NS 1 GM ADD-VANTAGE 250 ML IV SCH ×2 (09:00→09:06)
[2018-03-08] MEDS: VANCOMYCIN 750MG IV in NS 250 ML IV SCH (13:22)
[2018-03-08] MEDS ORDERED: lactulose 20gm/30ml cup PO PRN (17:50)
[2018-03-08] MEDS ORDERED: bisacodyl 10mg suppository rectal RC PRN (17:50)
[2018-03-08] MEDS: docusate sod 100mg capsule PO SCH (21:00)
[2018-03-08] MEDS: insulin glargine (Lantus) pen - multi-dose SQ SCH (21:30)
[2018-03-08] MEDS: insulin Lispro (HumaLOG) vial - multi-dose SQ SCH (21:30)
[2018-03-09] VITALS (24 sets, daily range): BP systolic 87–124; BP diastolic 66–82
[2018-03-09] MEDS: cefepime inj. 1 GM in dextrose 5%-water 50ml 50 ML IV SCH ×4 (00:01→23:57)
[2018-03-09] MEDS: VANCOMYCIN 750MG IV in NS 250 ML IV SCH ×2 (01:00→13:20)
[2018-03-09 02:14] LABS: BASOPHILS % (AUTO) 0.1 % (0-1); EOSINOPHILS % (AUTO) 0 % (0-6); HEMATOCRIT 30.4 % (35.0-45.0); HEMOGLOBIN 9.8 g/dl (12.0-16.0); LYMPHOCYTES # (AUTO) 0.3 X10'3 (1.1-4.8); LYMPHOCYTES % (AUTO) 2.7 % (21-51); MEAN CORPUSCULAR HEMOGLOBIN 25.5 PG (27.0-31.0); MEAN CORPUSCULAR HGB CONC 32.2 % (33.0-36.5); MEAN CORPUSCULAR VOLUME 79.3 FL (78-98); MEAN PLATELET VOLUME 9.6 FL (7.4-10.4); MONOCYTES # (AUTO) 0.4 X10'3 (0-0.9); MONOCYTES % (AUTO) 3.1 % (2-12); NEUTROPHILS % (AUTO) 94.1 % (42-75); RED BLOOD COUNT 3.83 X10'6 (4.20-5.60); RED CELL DISTRIBUTION WIDTH 22.6 % (11.5-14.5); WHITE BLOOD COUNT 11.7 X10'3 (4.5-11.0)
[2018-03-09 02:24] LABS: INR 3.9 INR
[2018-03-09 02:27] LABS: PLATELET COUNT 94 X10'3 (140-440)
[2018-03-09 02:30] LABS: ALANINE AMINOTRANSFERASE 79 U/L (12-78); ALBUMIN 2.1 G/DL (3.4-5.0); ALBUMIN/GLOBULIN RATIO 0.6 (1.1-1.5); ALKALINE PHOSPHATASE 176 IU/L (46-116); ANION GAP 12 (8-16); ASPARTATE AMINO TRANSFERASE 77 U/L (10-37); BILIRUBIN,TOTAL 1.6 MG/DL (0.1-1.0); BLOOD UREA NITROGEN 35 MG/DL (7-18); BUN/CREATININE RATIO 32.7 (6.6-38.0); CALCIUM 8.8 MG/DL (8.5-10.1); CHLORIDE 108 MMOL/L (99-107); CREATININE 1.07 MG/DL (0.40-0.90); GLUCOSE 125 MG/DL (70-104); POTASSIUM 3.7 MMOL/L (3.5-5.1); SODIUM 142 MMOL/L (135-145); TOTAL CARBON DIOXIDE 22.3 MMOL/L (24-32); TOTAL PROTEIN 5.6 G/DL (6.4-8.2); eGFR 51 ML/MIN
[2018-03-09] MEDS: ipratropium/albuterol 3ml nebule NEB SCH ×4 (02:32→20:06)
[2018-03-09 02:43] LABS: VANCOMYCIN,TROUGH 24.4 UG/ML (6.0-14.0)
[2018-03-09] MEDS: hydrocortisone sod succ/PF 100mg/2ml inj. IV SCH ×4 (03:30→21:39)
[2018-03-09] MEDS: DOBUTamine-DoBUTrex 500mg/D5W 250 ML IV SCH (04:39)
[2018-03-09] MEDS: K, MAG and/or Phos replacement - Verify level? MC SCH (07:11)
[2018-03-09 07:51] LABS: ABG BASE EXCESS -3.3 mmol/L (-2.0-3.0); ABG OXYGEN SATURATION 93.1 % (95-98); ABG PH (T) 7.441 (7.350-7.450); FCOHb 0.6 % (0.5-1.5); FLOW 2 L/min; FMetHb 0.1 % (0.3-1.12); FO2Hb 92.4 % (94-100); TOTAL HEMOGLOBIN 11.1 G/dl (12.0-16.0)
[2018-03-09] MEDS: dextrose 50%-water 50ml dispensing syringe IV PRN (10:00)
[2018-03-09] MEDS: pantoprazole 40mg Tablet.DR PO SCH (10:11)
[2018-03-09] MEDS: methadone 5mg tablet PO SCH ×2 (10:11→21:42)
[2018-03-09] MEDS: duloxetine 30mg CAPSULE.DR PO SCH ×2 (10:11→21:40)
[2018-03-09] MEDS: multivitamins, therapeutics tablet PO SCH (10:12)
[2018-03-09] MEDS: spironolactone 25 MG tablet PO SCH (10:12)
[2018-03-09] MEDS: levoTHYROXINE 25mcg tablet PO SCH (10:12)
[2018-03-09] MEDS: lactobacillus rhamnosus 10,000 MMU CELLS/CAPSULE PO SCH ×2 (10:20→21:44)
[2018-03-09] MEDS ORDERED: Protein Shake (high protein) 240ml (8oz) cup PO SCH (18:00)
[2018-03-09] MEDS: insulin glargine (Lantus) pen - multi-dose SQ SCH (21:00)
[2018-03-09] MEDS: docusate sod 100mg capsule PO SCH (21:45)
[2018-03-10] VITALS (24 sets, daily range): BP systolic 97–135; BP diastolic 57–101
[2018-03-10] MEDS ORDERED: VANCOMYCIN LEVEL IV ONE (00:30)
[2018-03-10] MEDS: VANCOMYCIN 750MG IV in NS 250 ML IV SCH ×2 (00:39→13:00)
[2018-03-10] MEDS: hydrocortisone sod succ/PF 100mg/2ml inj. IV SCH ×4 (02:38→21:01)
[2018-03-10 03:06] LABS: BASOPHILS % (AUTO) 0.1 % (0-1); EOSINOPHILS # (AUTO) 0.2 X10'3 (0-0.9); EOSINOPHILS % (AUTO) 1.6 % (0-6); HEMATOCRIT 30.6 % (35.0-45.0); HEMOGLOBIN 9.8 g/dl (12.0-16.0); LYMPHOCYTES # (AUTO) 0.5 X10'3 (1.1-4.8); LYMPHOCYTES % (AUTO) 4.8 % (21-51); MEAN CORPUSCULAR HEMOGLOBIN 25.6 PG (27.0-31.0); MEAN PLATELET VOLUME 9.4 FL (7.4-10.4); MONOCYTES # (AUTO) 0.3 X10'3 (0-0.9); MONOCYTES % (AUTO) 2.7 % (2-12); NEUTROPHILS # (AUTO) 9.2 X10'3 (1.8-7.7); NEUTROPHILS % (AUTO) 90.8 % (42-75); PLATELET COUNT 77 X10'3 (140-440); RED BLOOD COUNT 3.83 X10'6 (4.20-5.60); RED CELL DISTRIBUTION WIDTH 22.2 % (11.5-14.5); WHITE BLOOD COUNT 10.1 X10'3 (4.5-11.0)
[2018-03-10 03:25] LABS: ALANINE AMINOTRANSFERASE 80 U/L (12-78); ALBUMIN 2.1 G/DL (3.4-5.0); ALBUMIN/GLOBULIN RATIO 0.6 (1.1-1.5); ANION GAP 12 (8-16); ASPARTATE AMINO TRANSFERASE 77 U/L (10-37); BILIRUBIN,TOTAL 2.3 MG/DL (0.1-1.0); BLOOD UREA NITROGEN 34 MG/DL (7-18); BUN/CREATININE RATIO 37.4 (6.6-38.0); CALCIUM 8.8 MG/DL (8.5-10.1); CHLORIDE 108 MMOL/L (99-107); CREATININE 0.91 MG/DL (0.40-0.90); GLUCOSE 90 MG/DL (70-104); PHOSPHORUS 2.9 MG/DL (2.3-4.5); POTASSIUM 3.3 MMOL/L (3.5-5.1); SODIUM 143 MMOL/L (135-145); TOTAL CARBON DIOXIDE 22.9 MMOL/L (24-32); TOTAL PROTEIN 5.5 G/DL (6.4-8.2); eGFR 62 ML/MIN
[2018-03-10 03:26] LABS: ALKALINE PHOSPHATASE 191 IU/L (46-116)
[2018-03-10] MEDS: ipratropium/albuterol 3ml nebule NEB SCH ×4 (03:38→20:44)
[2018-03-10 03:50] LABS: PROTHROMBIN TIME 47.5 SECONDS (9.0-12.0)
[2018-03-10 03:55] LABS: INR 4.9 INR
[2018-03-10] MEDS: DOBUTamine-DoBUTrex 500mg/D5W 250 ML IV SCH (05:24)
[2018-03-10 07:28] LABS: MAGNESIUM 1.4 MG/DL (1.5-2.4)
[2018-03-10] MEDS: K, MAG and/or Phos replacement - Verify level? MC SCH (08:00)
[2018-03-10] MEDS: methadone 5mg tablet PO SCH ×2 (09:06→21:01)
[2018-03-10] MEDS: lactobacillus rhamnosus 10,000 MMU CELLS/CAPSULE PO SCH ×2 (09:06→21:01)
[2018-03-10] MEDS: levoTHYROXINE 25mcg tablet PO SCH (09:06)
[2018-03-10] MEDS: multivitamins, therapeutics tablet PO SCH (09:06)
[2018-03-10] MEDS: pantoprazole 40mg Tablet.DR PO SCH (09:06)
[2018-03-10] MEDS: duloxetine 30mg CAPSULE.DR PO SCH ×2 (09:06→21:01)
[2018-03-10] MEDS: cefepime inj. 1 GM in dextrose 5%-water 50ml 50 ML IV SCH ×2 (09:06→17:31)
[2018-03-10] MEDS: spironolactone 25 MG tablet PO SCH (09:07)
[2018-03-10] MEDS: dextrose 50%-water 50ml dispensing syringe IV PRN (09:17)
[2018-03-10] MEDS ORDERED: magnesium 4gm in 100ml NS 100 ML IV PRN (09:40)
[2018-03-10] MEDS ORDERED: magnesium 2GM in 50ml NS 50 ML IV PRN (09:40)
[2018-03-10] MEDS: potassium Cl 40MEQ/NS 500ml 500 ML IV PRN (10:04)
[2018-03-10] MEDS: docusate sod 100mg capsule PO SCH (21:00)
[2018-03-10] MEDS: insulin glargine (Lantus) pen - multi-dose SQ SCH (21:00)
[2018-03-11] VITALS (24 sets, daily range): BP systolic 86–126; BP diastolic 58–85
[2018-03-11] MEDS: cefepime inj. 1 GM in dextrose 5%-water 50ml 50 ML IV SCH ×3 (00:18→15:44)
[2018-03-11] MEDS ORDERED: VANCOMYCIN LEVEL IV ONE (00:30)
[2018-03-11 00:46] LABS: BASOPHILS % (AUTO) 0.4 % (0-1); EOSINOPHILS % (AUTO) 0 % (0-6); HEMATOCRIT 32.3 % (35.0-45.0); LYMPHOCYTES # (AUTO) 0.4 X10'3 (1.1-4.8); LYMPHOCYTES % (AUTO) 3.2 % (21-51); MEAN CORPUSCULAR HEMOGLOBIN 24.8 PG (27.0-31.0); MEAN CORPUSCULAR HGB CONC 31.1 % (33.0-36.5); MEAN CORPUSCULAR VOLUME 79.8 FL (78-98); MEAN PLATELET VOLUME 10.8 FL (7.4-10.4); MONOCYTES # (AUTO) 0.3 X10'3 (0-0.9); NEUTROPHILS # (AUTO) 10.4 X10'3 (1.8-7.7); NEUTROPHILS % (AUTO) 93.4 % (42-75); PLATELET COUNT 81 X10'3 (140-440); RED BLOOD COUNT 4.04 X10'6 (4.20-5.60); RED CELL DISTRIBUTION WIDTH 20.8 % (11.5-14.5); WHITE BLOOD COUNT 11.1 X10'3 (4.5-11.0)
[2018-03-11 00:50] LABS: ALANINE AMINOTRANSFERASE 70 U/L (12-78); ALBUMIN 2.2 G/DL (3.4-5.0); ALBUMIN/GLOBULIN RATIO 0.7 (1.1-1.5); ALKALINE PHOSPHATASE 198 IU/L (46-116); ANION GAP 14 (8-16); ASPARTATE AMINO TRANSFERASE 69 U/L (10-37); BILIRUBIN,TOTAL 2.5 MG/DL (0.1-1.0); BLOOD UREA NITROGEN 35 MG/DL (7-18); BUN/CREATININE RATIO 37.6 (6.6-38.0); CALCIUM 9.5 MG/DL (8.5-10.1); CHLORIDE 109 MMOL/L (99-107); CREATININE 0.93 MG/DL (0.40-0.90); GLUCOSE 110 MG/DL (70-104); MAGNESIUM 2.5 MG/DL (1.5-2.4); PHOSPHORUS 3.2 MG/DL (2.3-4.5); POTASSIUM 3.8 MMOL/L (3.5-5.1); PROTHROMBIN TIME 44.8 SECONDS (9.0-12.0); SODIUM 144 MMOL/L (135-145); TOTAL CARBON DIOXIDE 21.5 MMOL/L (24-32); TOTAL PROTEIN 5.5 G/DL (6.4-8.2); eGFR 60 ML/MIN
[2018-03-11 00:51] LABS: VANCOMYCIN,TROUGH 22.8 UG/ML (6.0-14.0)
[2018-03-11 00:53] LABS: INR 4.6 INR
[2018-03-11] MEDS: VANCOMYCIN 750MG IV in NS 250 ML IV SCH (01:52)
[2018-03-11] MEDS: hydrocortisone sod succ/PF 100mg/2ml inj. IV SCH ×4 (02:45→19:11)
[2018-03-11] MEDS: ipratropium/albuterol 3ml nebule NEB SCH ×4 (03:14→21:00)
[2018-03-11] MEDS: DOBUTamine-DoBUTrex 500mg/D5W 250 ML IV SCH (04:56)
[2018-03-11] MEDS: K, MAG and/or Phos replacement - Verify level? MC SCH (08:00)
[2018-03-11] MEDS: methadone 5mg tablet PO SCH ×2 (09:51→19:14)
[2018-03-11] MEDS: multivitamins, therapeutics tablet PO SCH (09:52)
[2018-03-11] MEDS: spironolactone 25 MG tablet PO SCH (09:52)
[2018-03-11] MEDS: pantoprazole 40mg Tablet.DR PO SCH (09:52)
[2018-03-11] MEDS: levoTHYROXINE 25mcg tablet PO SCH (09:52)
[2018-03-11] MEDS: lactobacillus rhamnosus 10,000 MMU CELLS/CAPSULE PO SCH ×2 (09:52→19:14)
[2018-03-11] MEDS: duloxetine 30mg CAPSULE.DR PO SCH ×2 (09:52→19:14)
[2018-03-11] MEDS ORDERED: vancomycin inj 500 MG in dextrose 5%-water 100 ML IV SCH ×2 (13:00→16:00)
[2018-03-11] MEDS: furosemide 20 MG/2 ML vial IV SCH (19:12)
[2018-03-11] MEDS: carVEDilol 3.125mg tablet PO SCH (19:14)
[2018-03-11] MEDS: insulin glargine (Lantus) pen - multi-dose SQ SCH (21:00)
[2018-03-11] MEDS: docusate sod 100mg capsule PO SCH (21:00)
[2018-03-12] VITALS (22 sets, daily range): BP systolic 91–141; BP diastolic 62–89
[2018-03-12] MEDS: cefepime inj. 1 GM in dextrose 5%-water 50ml 50 ML IV SCH ×3 (00:42→17:12)
[2018-03-12] MEDS: hydrocortisone sod succ/PF 100mg/2ml inj. IV SCH ×3 (02:43→20:56)
[2018-03-12] MEDS: ipratropium/albuterol 3ml nebule NEB SCH ×4 (02:50→21:13)
[2018-03-12] MEDS: DOBUTamine-DoBUTrex 500mg/D5W 250 ML IV SCH (04:12)
[2018-03-12 05:11] LABS: BASOPHILS % (AUTO) 0 % (0-1); EOSINOPHILS # (AUTO) 0.1 X10'3 (0-0.9); EOSINOPHILS % (AUTO) 1.2 % (0-6); HEMATOCRIT 31.9 % (35.0-45.0); HEMOGLOBIN 10.2 g/dl (12.0-16.0); LYMPHOCYTES # (AUTO) 0.2 X10'3 (1.1-4.8); LYMPHOCYTES % (AUTO) 1.7 % (21-51); MEAN CORPUSCULAR HEMOGLOBIN 25.5 PG (27.0-31.0); MEAN CORPUSCULAR HGB CONC 31.9 % (33.0-36.5); MEAN CORPUSCULAR VOLUME 79.9 FL (78-98); MEAN PLATELET VOLUME 10.3 FL (7.4-10.4); MONOCYTES # (AUTO) 0.2 X10'3 (0-0.9); MONOCYTES % (AUTO) 1.5 % (2-12); NEUTROPHILS # (AUTO) 10.9 X10'3 (1.8-7.7); NEUTROPHILS % (AUTO) 95.6 % (42-75); PLATELET COUNT 87 X10'3 (140-440); RED BLOOD COUNT 3.99 X10'6 (4.20-5.60); WHITE BLOOD COUNT 11.4 X10'3 (4.5-11.0)
[2018-03-12 05:29] LABS: INR 3.9 INR; PROTHROMBIN TIME 38.8 SECONDS (9.0-12.0)
[2018-03-12 05:40] LABS: ALANINE AMINOTRANSFERASE 60 U/L (12-78); ALBUMIN 2.1 G/DL (3.4-5.0); ALBUMIN/GLOBULIN RATIO 0.6 (1.1-1.5); ALKALINE PHOSPHATASE 197 IU/L (46-116); ANION GAP 15 (8-16); ASPARTATE AMINO TRANSFERASE 52 U/L (10-37); BILIRUBIN,TOTAL 1.8 MG/DL (0.1-1.0); BLOOD UREA NITROGEN 33 MG/DL (7-18); BUN/CREATININE RATIO 34.7 (6.6-38.0); CALCIUM 9.3 MG/DL (8.5-10.1); CHLORIDE 110 MMOL/L (99-107); CREATININE 0.95 MG/DL (0.40-0.90); GLUCOSE 186 MG/DL (70-104); MAGNESIUM 1.7 MG/DL (1.5-2.4); PHOSPHORUS 3.1 MG/DL (2.3-4.5); POTASSIUM 3.3 MMOL/L (3.5-5.1); SODIUM 146 MMOL/L (135-145); TOTAL CARBON DIOXIDE 21.4 MMOL/L (24-32); TOTAL PROTEIN 5.6 G/DL (6.4-8.2); eGFR 59 ML/MIN
[2018-03-12] MEDS: vancomycin inj 500 MG in dextrose 5%-water 100 ML IV SCH ×2 (07:00→19:00)
[2018-03-12] MEDS: pantoprazole 40mg Tablet.DR PO SCH (07:30)
[2018-03-12] MEDS: furosemide 20 MG/2 ML vial IV SCH ×2 (07:30→20:56)
[2018-03-12] MEDS: carVEDilol 3.125mg tablet PO SCH ×2 (08:00→20:56)
[2018-03-12] MEDS: K, MAG and/or Phos replacement - Verify level? MC SCH (08:00)
[2018-03-12] MEDS: multivitamins, therapeutics tablet PO SCH (08:00)
[2018-03-12] MEDS: methadone 5mg tablet PO SCH ×2 (08:00→20:57)
[2018-03-12] MEDS: lactobacillus rhamnosus 10,000 MMU CELLS/CAPSULE PO SCH ×2 (08:00→20:56)
[2018-03-12] MEDS: duloxetine 30mg CAPSULE.DR PO SCH ×2 (08:00→20:57)
[2018-03-12] MEDS: levoTHYROXINE 25mcg tablet PO SCH (08:00)
[2018-03-12] MEDS: lisinopril 2.5mg tablet PO SCH (08:00)
[2018-03-12] MEDS ORDERED: vancomycin inj 500 MG in dextrose 5%-water 100 ML IV SCH (08:00)
[2018-03-12] MEDS: spironolactone 25 MG tablet PO SCH (08:30)
[2018-03-12] MEDS: docusate sod 100mg capsule PO SCH (20:57)
[2018-03-12] MEDS: insulin regular, human vial - multi-dose SQ SCH (21:14)
[2018-03-12] MEDS: insulin glargine (Lantus) pen - multi-dose SQ SCH (21:17)
[2018-03-13] VITALS (24 sets, daily range): BP systolic 85–135; BP diastolic 58–99
[2018-03-13] MEDS: morphine 4 MG/ML inj SYRINge IV PRN ×3 (00:49→23:38)
[2018-03-13] MEDS: cefepime inj. 1 GM in dextrose 5%-water 50ml 50 ML IV SCH ×4 (00:49→23:06)
[2018-03-13] MEDS: ipratropium/albuterol 3ml nebule NEB SCH ×4 (02:17→21:16)
[2018-03-13 03:26] LABS: ABG HCO3 19.3 mmol/L (22.0-26.0); ABG OXYGEN SATURATION 91.7 % (95-98); ABG PCO2 (T) 32.7 mmHg (32.0-45.0); ABG PH (T) 7.387 (7.350-7.450); ABG PO2 (T) 67.8 mmHg (83-108); ALLEN'S TEST Positive; FCOHb 0.3 % (0.5-1.5); FMetHb 0.2 % (0.3-1.12); FO2Hb 91.2 % (94-100); MINUTE VOLUME 10 L/min; PATIENT TEMPERATURE 36.6; RESPIRATORY RATE 16 b/min; RESPIRATORY RATE (OBSERVED) 20 b/min; TIDAL VOLUME 550 mL; TOTAL HEMOGLOBIN 10.9 G/dl (12.0-16.0)
[2018-03-13 04:14] LABS: BASOPHILS % (AUTO) 0.3 % (0-1); EOSINOPHILS % (AUTO) 0 % (0-6); HEMATOCRIT 32.1 % (35.0-45.0); HEMOGLOBIN 10.3 g/dl (12.0-16.0); LYMPHOCYTES # (AUTO) 0.4 X10'3 (1.1-4.8); LYMPHOCYTES % (AUTO) 2.8 % (21-51); MEAN CORPUSCULAR HEMOGLOBIN 25.4 PG (27.0-31.0); MEAN CORPUSCULAR HGB CONC 32.3 % (33.0-36.5); MEAN CORPUSCULAR VOLUME 78.8 FL (78-98); MEAN PLATELET VOLUME 10.5 FL (7.4-10.4); MONOCYTES # (AUTO) 0.2 X10'3 (0-0.9); MONOCYTES % (AUTO) 1.3 % (2-12); NEUTROPHILS # (AUTO) 13.7 X10'3 (1.8-7.7); NEUTROPHILS % (AUTO) 95.6 % (42-75); PLATELET COUNT 101 X10'3 (140-440); RED BLOOD COUNT 4.07 X10'6 (4.20-5.60); RED CELL DISTRIBUTION WIDTH 22.9 % (11.5-14.5); WHITE BLOOD COUNT 14.4 X10'3 (4.5-11.0)
[2018-03-13 04:28] LABS: ALANINE AMINOTRANSFERASE 56 U/L (12-78); ALBUMIN 2.1 G/DL (3.4-5.0); ALBUMIN/GLOBULIN RATIO 0.6 (1.1-1.5); ALKALINE PHOSPHATASE 205 IU/L (46-116); ANION GAP 12 (8-16); ASPARTATE AMINO TRANSFERASE 53 U/L (10-37); BILIRUBIN,TOTAL 1.7 MG/DL (0.1-1.0); BLOOD UREA NITROGEN 32 MG/DL (7-18); BUN/CREATININE RATIO 29.4 (6.6-38.0); CALCIUM 9.1 MG/DL (8.5-10.1); CHLORIDE 112 MMOL/L (99-107); CREATININE 1.09 MG/DL (0.40-0.90); GLUCOSE 94 MG/DL (70-104); MAGNESIUM 1.6 MG/DL (1.5-2.4); PHOSPHORUS 2.8 MG/DL (2.3-4.5); POTASSIUM 3.5 MMOL/L (3.5-5.1); PROTHROMBIN TIME 54.8 SECONDS (9.0-12.0); SODIUM 149 MMOL/L (135-145); TOTAL CARBON DIOXIDE 25.1 MMOL/L (24-32); TOTAL PROTEIN 5.5 G/DL (6.4-8.2); eGFR 50 ML/MIN
[2018-03-13 04:34] LABS: INR 5.6 INR
[2018-03-13] MEDS: K, MAG and/or Phos replacement - Verify level? MC SCH (08:00)
[2018-03-13] MEDS: hydrocortisone sod succ/PF 100mg/2ml inj. IV SCH ×2 (08:15→19:21)
[2018-03-13] MEDS: vancomycin inj 500 MG in dextrose 5%-water 100 ML IV SCH (08:15)
[2018-03-13] MEDS: furosemide 20 MG/2 ML vial IV SCH ×2 (08:15→19:21)
[2018-03-13] MEDS: carVEDilol 3.125mg tablet PO SCH ×2 (08:15→19:22)
[2018-03-13] MEDS: DOBUTamine-DoBUTrex 500mg/D5W 250 ML IV SCH (08:15)
[2018-03-13] MEDS: lactobacillus rhamnosus 10,000 MMU CELLS/CAPSULE PO SCH ×2 (08:16→19:21)
[2018-03-13] MEDS: methadone 5mg tablet PO SCH ×2 (08:16→19:21)
[2018-03-13] MEDS: lisinopril 2.5mg tablet PO SCH (08:16)
[2018-03-13] MEDS: duloxetine 30mg CAPSULE.DR PO SCH ×2 (08:16→19:21)
[2018-03-13] MEDS: multivitamins, therapeutics tablet PO SCH (08:16)
[2018-03-13] MEDS: levoTHYROXINE 25mcg tablet PO SCH (08:16)
[2018-03-13] MEDS: spironolactone 25 MG tablet PO SCH (08:19)
[2018-03-13] MEDS: pantoprazole 40mg Tablet.DR PO SCH (08:21)
[2018-03-13] MEDS: dextrose 50%-water 50ml dispensing syringe IV PRN (08:35)
[2018-03-13] MEDS ORDERED: VANCOMYCIN LEVEL IV ONE (18:30)
[2018-03-13] MEDS: vancomycin inj 500 MG in normal saline 100ml IV soln 100 ML IV SCH (19:22)
[2018-03-13] MEDS: insulin glargine (Lantus) pen - multi-dose SQ SCH (20:55)
[2018-03-13] MEDS: docusate sod 100mg capsule PO SCH (21:00)
[2018-03-13] MEDS ORDERED: normal saline 500ml IV soln 500 ML IV ONE (21:50)
[2018-03-13 22:18] LABS: ALBUMIN 1.9 G/DL (3.4-5.0); ANION GAP 9 (8-16); BLOOD UREA NITROGEN 36 MG/DL (7-18); BUN/CREATININE RATIO 37.9 (6.6-38.0); CALCIUM 8.6 MG/DL (8.5-10.1); CHLORIDE 113 MMOL/L (99-107); CREATININE 0.95 MG/DL (0.40-0.90); GLUCOSE 120 MG/DL (70-104); SODIUM 151 MMOL/L (135-145); TOTAL CARBON DIOXIDE 29.2 MMOL/L (24-32); eGFR 59 ML/MIN
[2018-03-13 22:25] LABS: POTASSIUM 2.5 MMOL/L (3.5-5.1)
[2018-03-13] MEDS ORDERED: potassium Cl 40MEQ/NS 500ml 500 ML IV ONE (22:49)
[2018-03-14] VITALS (9 sets, daily range): BP systolic 94–112; BP diastolic 56–80
[2018-03-14 00:18] LABS: VANCOMYCIN,TROUGH 32.9 UG/ML (6.0-14.0)
[2018-03-14] MEDS: insulin regular, human vial - multi-dose SQ SCH ×2 (02:27→08:12)
[2018-03-14] MEDS: ipratropium/albuterol 3ml nebule NEB SCH ×2 (03:16→08:11)
[2018-03-14] MEDS: morphine 4 MG/ML inj SYRINge IV PRN ×2 (03:34→08:20)
[2018-03-14 04:58] LABS: BASOPHILS # (AUTO) 0.1 X10'3 (0-0.2); BASOPHILS % (AUTO) 0.7 % (0-1); EOSINOPHILS # (AUTO) 0.1 X10'3 (0-0.9); EOSINOPHILS % (AUTO) 0.7 % (0-6); HEMATOCRIT 31.2 % (35.0-45.0); HEMOGLOBIN 9.9 g/dl (12.0-16.0); LYMPHOCYTES # (AUTO) 0.4 X10'3 (1.1-4.8); LYMPHOCYTES % (AUTO) 2.2 % (21-51); MEAN CORPUSCULAR HEMOGLOBIN 25.5 PG (27.0-31.0); MEAN CORPUSCULAR HGB CONC 31.6 % (33.0-36.5); MEAN CORPUSCULAR VOLUME 80.6 FL (78-98); MEAN PLATELET VOLUME 10.2 FL (7.4-10.4); MONOCYTES # (AUTO) 0.2 X10'3 (0-0.9); NEUTROPHILS # (AUTO) 15.8 X10'3 (1.8-7.7); NEUTROPHILS % (AUTO) 95.4 % (42-75); PLATELET COUNT 70 X10'3 (140-440); RED BLOOD COUNT 3.87 X10'6 (4.20-5.60); RED CELL DISTRIBUTION WIDTH 23.3 % (11.5-14.5); WHITE BLOOD COUNT 16.6 X10'3 (4.5-11.0)
[2018-03-14 05:07] LABS: PROTHROMBIN TIME 46.3 SECONDS (9.0-12.0)
[2018-03-14 05:12] LABS: ALANINE AMINOTRANSFERASE 51 U/L (12-78); ALBUMIN 1.9 G/DL (3.4-5.0); ALBUMIN/GLOBULIN RATIO 0.6 (1.1-1.5); ALKALINE PHOSPHATASE 221 IU/L (46-116); ANION GAP 8 (8-16); ASPARTATE AMINO TRANSFERASE 61 U/L (10-37); BILIRUBIN,TOTAL 1.8 MG/DL (0.1-1.0); BLOOD UREA NITROGEN 35 MG/DL (7-18); BUN/CREATININE RATIO 36.8 (6.6-38.0); CALCIUM 8.5 MG/DL (8.5-10.1); CHLORIDE 115 MMOL/L (99-107); CREATININE 0.95 MG/DL (0.40-0.90); GLUCOSE 183 MG/DL (70-104); MAGNESIUM 1.4 MG/DL (1.5-2.4); PHOSPHORUS 2.3 MG/DL (2.3-4.5); PREALBUMIN 8.7 MG/DL (19-36); SODIUM 152 MMOL/L (135-145); TOTAL CARBON DIOXIDE 29.3 MMOL/L (24-32); TOTAL PROTEIN 5.3 G/DL (6.4-8.2); eGFR 59 ML/MIN
[2018-03-14 05:17] LABS: INR 4.7 INR
[2018-03-14] MEDS ORDERED: potassium Cl 40MEQ/NS 500ml 500 ML IV ONE (05:24)
[2018-03-14 05:41] LABS: ANISOCYTOSIS 3+; ELLIPTOCYTES FEW; PLATELET ESTIMATE DECREASED; TARGET CELLS FEW
[2018-03-14] MEDS: vancomycin inj 500 MG in normal saline 100ml IV soln 100 ML IV SCH (07:00)
[2018-03-14] MEDS: DOBUTamine-DoBUTrex 500mg/D5W 250 ML IV SCH (07:19)
[2018-03-14] MEDS: pantoprazole 40mg Tablet.DR PO SCH (07:30)
[2018-03-14] MEDS: furosemide 20 MG/2 ML vial IV SCH (08:00)
[2018-03-14] MEDS: levoTHYROXINE 25mcg tablet PO SCH (08:00)
[2018-03-14] MEDS: duloxetine 30mg CAPSULE.DR PO SCH (08:00)
[2018-03-14] MEDS: lisinopril 2.5mg tablet PO SCH (08:00)
[2018-03-14] MEDS: methadone 5mg tablet PO SCH (08:00)
[2018-03-14] MEDS: cefepime inj. 1 GM in dextrose 5%-water 50ml 50 ML IV SCH (08:00)
[2018-03-14] MEDS: hydrocortisone sod succ/PF 100mg/2ml inj. IV SCH (08:00)
[2018-03-14] MEDS: carVEDilol 3.125mg tablet PO SCH (08:00)
[2018-03-14] MEDS: lactobacillus rhamnosus 10,000 MMU CELLS/CAPSULE PO SCH (08:00)
[2018-03-14] MEDS: multivitamins, therapeutics tablet PO SCH (08:00)
[2018-03-14] MEDS: spironolactone 25 MG tablet PO SCH (08:30)
[2018-03-16] MEDS ORDERED: VANCOMYCIN LEVEL IV NR (06:30)
== END 2018-03-14 15:05 | disposition expired | DRG 871 ==
LOC: ER 07:53 → ED HOLD 10:38 → EDBEDREQSVC 12:54 → PCU 3S 15:20 → ICU 2S 03-02 17:48 → PCU 3S 03-06 09:50 → ICU 2S 03-06 16:49 → PCU 3S 03-14 12:24
PROVIDERS: ADMIT Nurse Practitioner Family; ATTEND Internal Medicine Critical Care Medicine
PROC: 5A09357 Assistance with Respiratory Ventilation, Less than 24 Consecutive Hours, Continuous Positive Airway Pressure (ICD-10-PCS; principal; 2018-02-28)
PROC: CB221ZZ Tomographic (Tomo) Nuclear Medicine Imaging of Lungs and Bronchi using Technetium 99m (Tc-99m) (ICD-10-PCS; 2018-03-03)
PROC: 02HV33Z Insertion of Infusion Device into Superior Vena Cava, Percutaneous Approach (ICD-10-PCS; 2018-03-08)
PROC: B548ZZA Ultrasonography of Superior Vena Cava, Guidance (ICD-10-PCS; 2018-03-08)
PROC: 5A09457 Assistance with Respiratory Ventilation, 24-96 Consecutive Hours, Continuous Positive Airway Pressure (ICD-10-PCS; 2018-03-13)
DX: A41.9 Sepsis, unspecified organism (principal); J18.9 Pneumonia, unspecified organism; R57.0 Cardiogenic shock; G93.41 Metabolic encephalopathy; N17.9 Acute kidney failure, unspecified; L89.150 Pressure ulcer of sacral region, unstageable; D69.6 Thrombocytopenia, unspecified; E11.621 Type 2 diabetes mellitus with foot ulcer; I42.9 Cardiomyopathy, unspecified; J44.0 Chronic obstructive pulmonary disease with (acute) lower respiratory infection; L97.519 Non-pressure chronic ulcer of other part of right foot with unspecified severity; E11.649 Type 2 diabetes mellitus with hypoglycemia without coma; S91.301A Unspecified open wound, right foot, initial encounter; Z95.2 Presence of prosthetic heart valve; D50.9 Iron deficiency anemia, unspecified; E03.9 Hypothyroidism, unspecified; E78.00 Pure hypercholesterolemia, unspecified; M19.90 Unspecified osteoarthritis, unspecified site; I70.201 Unspecified atherosclerosis of native arteries of extremities, right leg; E78.5 Hyperlipidemia, unspecified; E05.90 Thyrotoxicosis, unspecified without thyrotoxic crisis or storm; R09.02 Hypoxemia; R62.7 Adult failure to thrive; R79.1 Abnormal coagulation profile; X58.XXXA Exposure to other specified factors, initial encounter; M54.9 Dorsalgia, unspecified; E83.42 Hypomagnesemia; F32.9 Major depressive disorder, single episode, unspecified; F43.10 Post-traumatic stress disorder, unspecified; G51.0 Bell's palsy; G89.29 Other chronic pain; I11.0 Hypertensive heart disease with heart failure; I50.9 Heart failure, unspecified; K21.9 Gastro-esophageal reflux disease without esophagitis; F17.200 Nicotine dependence, unspecified, uncomplicated; Z51.5 Encounter for palliative care; Z66 Do not resuscitate; I25.2 Old myocardial infarction; Z90.49 Acquired absence of other specified parts of digestive tract; Z88.0 Allergy status to penicillin; Z88.1 Allergy status to other antibiotic agents; Z88.8 Allergy status to other drugs, medicaments and biological substances; Z79.899 Other long term (current) drug therapy; Z79.01 Long term (current) use of anticoagulants; Z85.3 Personal history of malignant neoplasm of breast; Z71.6 Tobacco abuse counseling; Y93.89 Activity, other specified; Y92.89 Other specified places as the place of occurrence of the external cause; Y99.8 Other external cause status
CPT/HCPCS: 36415; 36569; 36600; 70450; 71045; 71046; 74018; 76937; 78582; 80048; 80053; 80202; 80305; 81001; 82533; 82553; 82570; 82803; 82810; 82947; 82948; 83036; 83605; 83735; 83880; 84100; 84132; 84134; 84145; 84156; 84300; 84484; 84540; 84681; 85007; 85018; 85025; 85379; 85610; 85730; 86885; 86900; 86901; 87040; 87070; 87088; 87207; 92616; 93005; 93306; 93922; 93971; 94640; 94660; 94760; 96361; 96365; 96366; 96368; 96375; 97110; 97162; 97530; 99285; A4315; A4357; A4649; A6196; A6212; A6213; A6222; A6223; A6253; A6255; A6258; A6446; A6449; A9539; A9540; C1751; C9113; J0456; J0692; J0696; J1250; J1450; J1644; J1720; J1815; J1940; J1956; J2270; J2930; J3370; J3430; J3475; J3480; J3490; J7030; J7042; J7060